=== PATIENT | female | born 1955 | race Caucasian/White ===

== ENCOUNTER 2017-02-06 11:36 | Emergency (ER) | payer MEDICAID ==
[~2017-02-06] VITALS: Ht 154.9 cm; Wt 54.4 kg
[~2017-02-06 11:36] MED LIST: ASPIRIN 81MG TA81 MG PO; FLEXERIL10 M1 PO; KEFLEX 500MG.500 MG PO; NAPROXEN SODIU500 MG PO; PREDNISONE 10MG10 MG PO
--- NOTE | 2017-02-06 12:39 | Urgent Treatment Center Report ---
History of Present Issue Date/Time Seen by Provider 02/06/17 1224 Visit Reason Pt arrived:Walked Presenting Problem:PT STATES PAIN TO BACK AT HER BRA LINE FROM LIFTING A BIG BLOCK OUT OF A MOWER DAY BEFORE YESTERDAY Location if Accident: Onset of symptoms date/time:/ or onset unknown for:MEDICAL HX UNKNOWN Have you (or family members/close friends) recently traveled outside the [place]? N If Yes, where/when: Have you had exposure to infectious disease within the past month? TB? Other? Specify: Her with sister c/o back pain. Pain mid to lower thoracic spine since yesterday. Not sure of exact cause. "I have to do so much by myself at home". Pull started a mower and lifted a heavy rock off a pole yesterday. No improvement w/ aspirin when pain started. Two tylenol and one 500mg naproxen last night. No medication this morning. Pain currently 7-8/10, constant dull ache, only on spine. Limiting spinal ROM. Improved when lying supine but severe when trying to get up. Denies UE weakness, no N/T. no difficulty urinating. No pain or symptoms BLE "other than my normal arthritis". Source patient Exam Limitations no limitations ALLERGIES Coded Allergies: CAULIFLOWER (FOOD) (NA-NAUSEA/VOMITING 09/04/14) Home Medications Active Scripts CYCLOBENZAPRINE HCL (Flexeril) 10 MG PO BID 7 Days Prov: 09/11/11 Prednisone (Prednisone 10MG) 10 MG PO BID 5 Days Prov: 09/11/11 Reported Medications NAPROXEN (NAPROXEN 500MG TAB) 500 MG PO BID ASPIRIN (Aspirin) 81 MG PO DAILY History Medical History General CAD? No Angina: No [place]: No Hypertension? No Hyperlipidemia? No CHF? No DVT? No PE? No COPD? No Asthma? No Anemia? No GERD? No Gastric ulcers? No GI Bleed? No Hernia? No Thyroid Problems? No Hypothyroidism? No CVA? No Seizures? No Diabetes? No Renal Insuffiency? No UTI? No Stones? No BPH? No GB Disease: No Nephritic Syndrome? No Asplenia? No Hepatitis? No Sickle Cell Disease? No Arthritis? No Migraines? No Cataracts? No Glaucoma? No MRSA? No HIV? No TB? No Anxiety? No Depression? No Cancer? No Immunization HX DT/Tetanus 2008 Surgical Hx Previous Surgery?Y HYST CYST ON WRIST R HIP FX Social History Smoking Hx Smoker: Current Every Day Smoker Tobacco: Yes Type Cigarettes Packs/day 1 1/2 - 2 Packs Alcohol Alcohol: No Review of Systems All Other Systems Reviewed and Negative Constitutional denies fever Respiratory shortness of breath (at baseline) Cardiovascular denies chest pain Gastrointestinal denies nausea, denies vomiting Musculoskeletal see HPI, denies neck pain Skin denies lesions, denies lumps, denies rash Psychiatric/Neurological see HPI Physical Exam Vital Signs Vital Signs Date Time Temp Pulse Resp B/P Pulse O2 O2 Flow FiO2 Ox Delivery Rate 02/06 1237 20 02/06 1153 98.3 75 20 123/59 94 General Appearance mild distress (appear uncomfortable on table), slow to change positions Neck non-tender, supple, full range of motion Respiratory Status No: respiratory distress. Cardiovascular no peripheral edema Back normal inspection, bowel/bladder continent, decreased range of motion ( spine), strt leg raising(L)-NML, strt leg raising(R)-NML, gait slow, moderate tendnerness approx T5-10, no thoracic or lumbar region tenderness Extremities non-tender, normal range of motion Strength 5 Upper Ext (L), 5 Upper Ext (R), 5 Lower Ext (L), 5 Lower Ext (R) Neurologic alert, no motor/sensory deficits, oriented x 3 Mental status normal mood/affect Skin normal color, warm/dry Medical Decision Making LABS/Meds/Orders Pt receiving controlled substance in ED? No Results/Orders Current Medication Orders Sig/Emre Start time Last Medication Dose Route Stop Time Status Admin Ketorolac 60 MG ONCE ONE 02/06 1245 DC 02/06 Tromethamine IM 02/06 1246 1237 Ketorolac 0 .STK-MED ONE 02/06 1235 DC Tromethamine .ROUTE Orders Procedure Date/time Status THORACIC SPINE-3V SWIMMERS 02/06 1232 Active XRAY/CT/US XRAY/CT/US XRAY T-spine XR interpretation by reviewed by me (w/ Dr. Anton, V[facility] STANFORD) Xray Results no acute findings, chronic spurring Progress [facility] Progress Notes 1 Date 02/06/17 Time 1230 Comment pt hesitant to take pain medication. States she is not one to like to take anything. rarely takes her naproxen twice a day as ordered. Educated about toradol, risk, benefits. Pt decides that due to the pain, she would like to receive the toradol injection. [facility] Progress Notes 2 Date 02/06/17 Time 1310 Comment Pain "somewhat" improved with toradol. Discussed xray results. Agrees to follow up with PCP, take naproxen BID with food and start steroids. Has taken steroids in the past for COPD and is familiar with side effects. Departure Departure Time of Disposition 1315 Disposition DC Home or Self Care(routine) Clinical Impression Primary Impression: Thoracic spine pain Secondary Impressions: Arthritis Condition STABLE Referrals Leodan STANFORD,A.C. (Family) Call today and schedule 1-2 day follow up. Return immediately for new or worsening symptoms. Patient Instructions DI for Thoracic Back Pain Additional Instructions * naproxen every 12 hours with meal as needed for pain/inflammation. * Start steorid today. Be sure to follow up with Dr. Alcocer in 1-2 days. * Remember you had a toradol shot in clinic * No additional anti-inflammatories like motrin, aleve, advil with the above amount of ibuprofen. You CAN still take Tylenol every 4 hours as needed if you need something more for pain. * Ice x15-20 mins 3-4 times a day for first 48 hours after the initial injury followed by moist heat x15-20 mins 3-4 times a day to affected area * Keep this area active. No movement leads to more stiffness. However, take it easy too and avoid heavy lifting, pushing, pulling. Discharge Counseling Counseled pt/family regarding diagnosis, test results, medications/RX, home care, follow up needs Prescriptions Current Visit Scripts Prednisone (Prednisone 20MG) 20 MG PO BID #10 TAB at 1317
[2017-02-06] MEDS ORDERED: PREDNISONE 20MG20 MG PO (13:17)
[2017-02-06 13:19] VITALS: BP 123/59
--- NOTE | 2017-02-06 17:14 | RADIOLOGY REPORT PS360 ---
EXAM: THORACIC SPINE-3V SWIMMERS HISTORY: acute lower thoracic pain, pull started mower, lifted rock COMPARISON: None FINDINGS: Normal alignment. There is mild multilevel degenerative disc disease with small endplate osteophytes. There is slight loss of height anteriorly of T7 and T8 likely degenerative in nature. If pain persists, MRI may be of further value. No definite acute fracture or retropulsed fragments apparent. No lytic or blastic change. IMPRESSION: 1. Degenerative changes of the thoracic spine with minimal wedging of T7 and T8 likely chronic. This may be confirmed with MRI if pain persists.
== END 2017-02-06 13:20 | disposition home or self-care (01) ==
LOC: UTC 11:36
DX: M54.6 Pain in thoracic spine (principal); M47.814 Spondylosis without myelopathy or radiculopathy, thoracic region

== ENCOUNTER 2017-02-19 12:26 | Emergency (ER) | payer MEDICAID ==
[~2017-02-19] VITALS: Ht 154.9 cm; Wt 55.8 kg
[~2017-02-19 12:26] MED LIST changes: +PREDNISONE 20MG20 MG PO
--- NOTE | 2017-02-19 13:20 | Emergency Room Report ---
History of Present Illness Time Seen by 1256 Presenting Problem in Triage Pt arrived:Walked Presenting Problem:PT ADVISES SHE FEELS NUMB AND TINGLING. ADVISES SHE HURT HER BACK A COUPLE OF DAYS AGO. NO DEFICITS NOTED AT THIS TIME. 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 N Clinical Suspician of Infection? N Mental Status: 1 - Regular (Normal Baseline) Sepsis Risk:Low Sepsis Risk Have you (or family members/close friends) recently traveled outside the [place]? N If Yes, where/when: Have you had exposure to infectious disease within the past month? N TB? Other? Specify: Patient states she "feels numb all over", including face, lips, BUE, BLE; no cephalgia; onset gradually yesterday; also feeling anxious. No chest pain. Is oxygen dependent, no acute SOB. Has some back spasm from pulling lawnmower cord, PCP Dr. Alcocer prescribed Flexeril and Ultram. The back pain is stable. ALLERGIES Coded Allergies: hydrocodone (Mild, 02/19/17) CAULIFLOWER (FOOD) (NA-NAUSEA/VOMITING 09/04/14) Home Medications Active Scripts CYCLOBENZAPRINE HCL (Flexeril) 10 MG PO BID 7 Days Prov: 09/11/11 Prednisone (Prednisone 10MG) 10 MG PO BID 5 Days Prov: 09/11/11 Prednisone (Prednisone 20MG) 20 MG PO BID #10 TAB Prov: 02/06/17 Reported Medications NAPROXEN (NAPROXEN 500MG TAB) 500 MG PO BID ASPIRIN (Aspirin) 81 MG PO DAILY History Medical History Immunization Hx DT/Tetanus 1-4 Years Ago Surgical Hx Previous Surgery?N Social History Smoking Hx Smoker: Former Smoker Tobacco: No Alcohol Alcohol: No Review of Systems All Other Systems Reviewed and Negative Psychiatric/Neurological see HPI, anxiety, paresthesia, tingling Physical Exam Vital Signs Vital Signs Date Time Temp Pulse Resp B/P Pulse O2 O2 Flow FiO2 Ox Delivery Rate 02/19 1234 98.2 79 16 163/100 95 General Appearance normal appearance, WD/WN, no apparent distress Eye Exam - bilateral eye normal exam, bilateral eye PERRL, bilateral eye EOMI Neck normal inspection, non-tender, supple, full range of motion Respiratory Status Yes: trachea midline, chest symmetrical, non tender chest. No: respiratory distress, tender on palpation, use of accessory muscles, pain on inspiration, pain on expiration, productive cough, non productive cough. Lung Sounds bilateral: normal breath sounds, lungs clear, decreased breath sounds. Cardiovascular normal exam, regular rate/rhythm, no peripheral edema, no gallop, no JVD, no murmur, no rub, normal peripheral pulses Peripheral Pulses Peripheral Pulses 2+ dorsalis pedis (R), 2+ dorsalis pedis (L) Gastrointestinal normal bowel sounds, normal exam, non tender, soft, no organomegaly, no guarding, no rebound Extremities non-tender, normal range of motion, normal inspection, normal capillary refill, no calf tenderness, no pedal edema Strength 5 Upper Ext (L), 5 Upper Ext (R), 5 Lower Ext (L), 5 Lower Ext (R) Neurologic alert, creative/art director II-XII nml as tested, normal exam, no motor/sensory deficits, oriented x 3 (gait steady NIHSS 0 clear spch) Glascow Coma Scale Glascow Coma Scale Response Value EYE response: 4 Spontaneously 4 MOTOR response: 6 OBEYS 6 VERBAL response: 5 Oriented & Converses 5 Total 15 Skin intact, normal color, warm/dry Medical Decision Making LABS/Meds/Orders Pt receiving controlled substance in ED? No Results/Orders Current Medication Orders Sig/Emre Start time Last Medication Dose Route Stop Time Status Admin Hydroxyzine Pamoate 25 MG ONCE ONE 02/19 1400 AC PO 02/19 1401 Orders Procedure Date/time Status DIET-NOTHING BY MOUTH 02/[address] HEAD REQ 02/19 1313 Active XRAY/CT/US XRAY/CT/US CT head CT interpretation by reviewed by me Time results known: 1350 CT Results normal/NAD (neg acute per report) Departure Departure Time of Disposition 1351 Disposition DC Home or Self Care(routine) Clinical Impression Primary Impression: Tingling sensation Condition STABLE Referrals Leodan STANFORD,A.C. (Family) Patient Instructions DI for Numbness/tingling Additional Instructions See Dr. Alcocer in one to two days for recheck blood pressure and recheck symptoms Discharge Counseling Counseled pt/family regarding diagnosis, test results, medications/RX, home care, follow up needs Prescriptions Current Visit Scripts Hydroxyzine Pamoate (Vistaril 25MG CAP) 25 MG PO Q6HP PRN anxiety #6 CAP ED Critical Care Critical Care No at [id number]
--- NOTE | 2017-02-19 13:42 | RADIOLOGY REPORT PS360 ---
CT HEAD WITHOUT CONTRAST CT BONE WINDOWS included ORDERING PHYSICIAN : Paty Malone MD PATIENT AGE: 61 years GENDER: Female PROCEDURE: Routine axial images headwithout contrast. Brain & bone windows HISTORY: NUMB ALL OVER SINCE LAST NIGHT COMPARISON: None FINDINGS: No acute intracranial findings. No hemorrhage. No acute infarct evident by CT No mass effect or mass lesion. No subdural nor extra-axial collection. Ventricles & basal cisterns appear satisfactory. . The posterior fossa appear satisfactory and unremarkable. The skull is intact. The visualized portions of the paranasal sinuses are clear. With only borderline mucosal thickening ethmoid air cells.Mastoid air cells, middle ear & IACs are unremarkable. IMPRESSION: No acute intracranial findings. .
[2017-02-19] MEDS ORDERED: VISTARIL25 M1 PO (13:54)
[2017-02-19 14:14] VITALS: BP 160/80
== END 2017-02-19 14:14 | disposition home or self-care (01) ==
LOC: ER 12:26
DX: R20.8 Other disturbances of skin sensation (principal); Z79.899 Other long term (current) drug therapy

== ENCOUNTER → 2017-03-07 | Outpatient (CLI) | payer MEDICAID ==
[~2017-03-07] MED LIST changes: +VISTARIL25 M1 PO
--- NOTE | 2017-03-07 11:01 | RADIOLOGY REPORT PS360 ---
MRI-T-SPINE W/O HISTORY: Thoracic back pain, mid back pain COMPRESSION FX OF BODY OF THORACIC VERTEBRA ORDERING PHYSICIAN: Terence Alcocer MD PATIENT AGE: 61 years COMPARISON: Radiograph of 02/06/2017 TECHNIQUE: Standard multiplanar multiecho sequences are performed without contrast. 3-D MIP and myelographic images are also rendered and reviewed FINDINGS: There has been interval development of severe wedge compressive changes involving the T8 vertebral body with loss of height centrally of greater than 50% loss of height anteriorly of approximately 50%. There is retropulsion of the posterior inferior aspect of the vertebral body by approximately 4 mm. No cord compression evident. No paraspinal hematoma or mass. There is kyphosis at the T8-T9 junction Mild bone marrow edema is present along the superior endplate of T9 and may be related to posttraumatic changes no significant loss of height of T9. Small hemangioma is present involving the 4 vertebral body. Small area of increased T2 signal involving the T2 vertebral body etiology indeterminate. Probable hemangioma in T1 vertebral body. IMPRESSION: 1. Severe wedge compression changes involve the T8 vertebral body with mild retropulsion of the posterior inferior aspect of T8. No cord compression. 2. Bone marrow edema involves the anterior superior aspect of T9 and may be related to posttraumatic changes as well versus type II endplate changes. No loss of height. 3. Scattered T2 hyperintense areas within T1, T2, and T4 vertebral body which may represent hemangiomas. Follow-up recommended to confirm stability.
--- NOTE | 2017-03-07 14:22 | RADIOLOGY REPORT PS360 ---
KUB (SINGLE VIEW) HISTORY: PAIN IN UPPER ABDOMEN ORDERING PHYSICIAN: Terence Alcocer MD PATIENT AGE: 61 years COMPARISON: None FINDINGS: The bowel gas pattern is unremarkable. No obvious obstruction.. No abnormal calcifications are evident. No obvious renal or ureteral calculi.. There is severe osteoarthritic changes of the right hip with dysplastic changes of the right femoral head IMPRESSION: No acute finding Severe osteoarthritis of the right hip
== END ==
LOC: RAD 07:51
DX: M54.6 Pain in thoracic spine (principal); M48.54XA Collapsed vertebra, not elsewhere classified, thoracic region, initial encounter for fracture; R10.10 Upper abdominal pain, unspecified

== ENCOUNTER → 2017-03-15 | Outpatient (CLI) | payer MEDICAID ==
[2017-03-15 15:32] LABS: HEMOGLOBIN 14.1 g/dL (12.2-16.2); LYMPH # 2.9 K/mm3 (0.7-4.5); LYMPH % 29.9 % (10-50.0)
[2017-03-15 18:27] LABS: BUN 5 mg/dL (7-18)
[2017-03-15 18:42] LABS: GFR (ESTIMATED) 73 ML/MIN (59-)
== END ==
LOC: LAB 15:15
PROVIDERS: Orthopaedic Surgery
DX: Z01.818 Encounter for other preprocedural examination (principal)

== ENCOUNTER 2017-04-02 15:26 | Emergency (ER) | payer MEDICAID ==
[~2017-04-02] VITALS: Ht 154.9 cm; Wt 67.1 kg
--- OUTSIDE RECORDS SUMMARY | 2017-04-02 15:53 | External Medical Summary Rpt | CCD ---
Author Author , DLIAN Organization DILAN Address Unknown Phone [email or web address] Care Team Providers Care Fire Alarm Technician Name Role Phone A Uche SHEIKH MD PSC, Saúl Unavailable Unavailable Uche SHEIKH MD PSC PEDRO LUIS LES, PEDRO LUIS Unavailable Unavailable LES GOLDSTEIN, GOLDSTEIN Unavailable Unavailable [facility], Unavailable Unavailable [facility], Unavailable Unavailable [facility] CASSIA, CASSIA Unavailable Unavailable [facility] SELMA, Unavailable Unavailable [facility] Unavailable Unavailable [facility], [facility] Un[facility] Unavailable [facility], [facility] LOPEZ, LOPEZ Unavailable Unavailable VELÁSQUEZ, VELÁSQUEZ Unavailable Unavailable [facility] KILPELA, KILPELA Unavailable Unavailable KILPELA JEA, KILPELA Unavailable Unavailable JEA [facility], [facility] Unavailable Unavailable [facility] Unavailable Unavailable [facility], [facility] Unavailable Unavailable [facility], [facility] Unavailable Unavailable [facility], [facility] Unavailable Unavailable [facility], [facility] ELTON GUZMÁN MD Unavailable Unavailable PS, ELTON GUZMÁN MD PS HOPKINS, HOPKINS Unavailable Unavailable [facility] JAM, Unavailable Unavailable [facility], Unavailable [facility]available [facility], [facility] GREG GUZMAN Unavailable Unavailable COLBY, GREG GUZMAN COLBY MINI HEN, MINI Unavailable Unavailable [facility], Unavailable Unavailable [facility] SCIFRES, SCIFRES Unavailable Unavailable SCIFRES, SCIFRES Unavailable Unavailable SILVER, SILVER Unavailable Unavailable SILVER, SILVER Unavailable Unavailable [facility] Unavailable Unavailable [facility], [facility] Unavailable Unavailable [facility], [facility], Unavailable Unavailable [facility] Un[facility] Un[facility] Unavailable Unavailable DEPT HAL, [facility] HAL WORTZ, WORTZ Unavailable Unavailable KORI, KORI Unavailable Unavailable KORI A, KORI A Unavailable Unavailable KORI DIMPLE, KORI Unavailable Unavailable DIMPLE Purpose Continuity of Care Document - 09-09-2013 through 2016 Problems Code Diagnosis DOS Provider Status R0602 SHORTNESS 03-07-2017 A Uche SHEIKH OF BREATH [facility] R1010 UPPER 03-07-2017 A Uche SHEIKH ABDOMINAL [facility] PAIN UNSPECIFIED R200 ANESTHESIA 02-19-2017 [facility] R202 PARESTHESIA 02-19-2017 [facility] SKIN PHYSICIANS, 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 UNS EQUIPME E782 MIXED 01-03-2017 A Uche SHEIKH HYPERLIPIDE [facility] SARAH G4700 INSOMNIA 01-03-2017 A Uche SHEIKH UNSPECIFIED [facility] N289 DISORDER OF 01-03-2017 A Uche SHEIKH KIDNEY AND PSC URETER UNSPECIFIED Z205 CONTACT W/ 01-03-2017 A Uche SHEIKH & SUSPECTED PSC EXPOSURE VIRAL HEPATITIS J439 EMPHYSEMA 11-21-2016 [facility] E039 HYPOTHYROID 10-05-2016 [facility] ISM [facility] UNSPECIFIED HOLDINGS Z1231 ENCOUNTER 10-05-2016 [facility] NEOPLASM BREAST Z6821 BODY MASS 10-05-2016 [facility] INDEX BMI [facility] 21.0-21.9 HOLDINGS ADULT Z833 FAMILY 10-05-2016 [facility] HISTORY OF [facility] DIABETES HOLDINGS MELLITUS L92314 ENCOUNTER 09-12-2016 [facility] 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 ASSISTANT MEMBER EXAM DISTRICT GENERAL RTN [facility] DEPT W/O HAL ABNORMAL FIND Z1239 ENCOUNTER 09-12-2016 [facility] OTHER DISTRICT SCREENING [facility] DEPT MALIG HAL NEOPLASM BREAST 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 H2511 AGE-RELATED 08-03-2016 [facility] NUCLEAR CATARACT RIGHT EYE Q73442 COMBINED 08-02-2016 [facility] FORMS OF AGE-RELATED CATARACT LEFT EYE H269 UNSPECIFIED 08-02-2016 [facility] H2701 APHAKIA 08-02-2016 [facility] RIGHT EYE Q66319 COMBINED 07-26-2016 ELTON CHANDRA MD AGE-RELATED PS CATARACT RIGHT EYE O69715 PAIN IN 07-05-2016 Saúl SHEIKH RIGHT LEG [facility] J77909 COMBINED 06-14-2016 SILVER FORMS OF AGE-RELATED CATARACT BILATERAL E538 DEFICIENCY 2016 [facility] OF OTHER [facility] SPECIFIED B HOLDINGS GROUP VITAMINS E559 VITAMIN D 2016 [facility] DEFICIENCY [facility] UNSPECIFIED HOLDINGS E785 HYPERLIPIDE 2016 [facility] SARAH [facility] UNSPECIFIED HOLDINGS R5383 OTHER 2016 [facility] FATIGUE [facility] HOLDINGS R911 SOLITARY 01-05-2016 [facility] R918 OTHER 01-05-2016 [facility] NONSPECIFIC [facility] ABNORMAL INC FINDING OF LUNG FIELD J9811 ATELECTASIS 12-30-2015 [facility] R079 CHEST PAIN 12-30-2015 [facility]PEC[facility] R9431 ABNORMAL 12-30-2015 [facility] MEDICAL ELECTROCARD SERV IOGRAM FOUNDATION R0789 OTHER CHEST 12-29-2015 [facility] R0989 OT SPEC SX 12-29-[address] [facility] INVLV THE CIRC & RESP SYS R198 OT SPEC SX 12-29-2015 [facility] SERV INVLV THE [facility]OUNDATION DIGESTV SYS & ABD E1165 TYPE 2 07-07-2015 [facility] DIABETES [facility] MELLITUS HOLDINGS WITH [place]PERGLYCEM [place] C18844 PAIN IN 03-30-2015 [facility] RIGHT KNEE [facility] HOLDINGS Z23 ENCOUNTER 03-30-2015 Saúl BOWMAN MD [facility] IMMUNIZATIO N 496 CHRONIC 03-03-2015 [facility] MEDICAL NEC EQUIPME 2449 UNSPECIFIED 01-05-2015 [facility] HYPOTHYROID HOLDINGS ISM 53755 DIAB W/O 01-05-2015 [facility] MENTION [facility] COMP TYPE HOLDINGS II/UNS TYPE UNCNTRL 2724 OTHER AND 01-05-2015 [facility] UNSPECIFIED [facility] HOLDINGS HYPERLIPIDE SARAH 4011 ESSENTIAL 01-05-2015 [facility] HYPERTENSIO [facility] N, BENIGN HOLDINGS 05321 PAIN IN 12-31-2014 [facility] PELVIC INC REGION AND THIGH 51337 PAIN IN 12-31-2014 [facility] LOWER LEG INC V700 ROUTINE 12-15-2014 [facility] MEDICAL [facility] DEPT [email or web address] CARE FACL 59485 OBSTRUCTIVE 11-25-2014 [facility] CHRONIC SERV BRONCHITIS [facility] WITHOUT EXACERBAT 4920 EMPHYSEMATO 11-25-2014 [facility] US BLEB SERV [facility] 44828 CHRONIC 11-25-2014 [facility] RESPIRATORY SERV FAILURE [facility] 61887 OTHER 11-25-2014 [facility] NONSPECIFIC SERV ABNORMAL FOUNDATION FINDING OF LUNG FIELD 64572 OSTEOARTHRO 11-18-2014 [facility] UNSPEC MEDICAL GEN/LOC IMAGING ASS PELV REGION&THIG H 68978 UNSPECIFIED 11-18-2014 [facility] MED[facility] BONE [facility] 4928 OTHER 10-09-2014 [facility]HY[facility]MA [facility] 7862 COUGH 10-09-2014 [facility] 76396 IRRITABILIT 09-25-2014 Saúl Mathews MD PSC V7610 UNSPECIFIED 09-22-2014 [facility] SCREENING INC V7612 OTHER 09-22-2014 [facility] MAMMO[facility] 78383 OTHER 09-15-2014 [facility] MALAISE AND [facility] FATIGUE HOLDINGS 7881 DYSURIA 09-15-2014 [facility] HOLDINGS 42221 UNSPECIFIED 09-15-2014 [facility] URINARY [facility] INCONTINENC HOLDINGS E V180 FAMILY 09-15-2014 [facility] HISTORY OF [facility] DIABETES HOLDINGS MELLITUS 93009 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 [facility] V5869 LONG-TERM 09-07-2014 [facility] (CURRENT[facility] USE OF INC OTHER MEDICATIONS V7651 SPECIAL 09-07-2014 [facility] SCREENING SERV FOR [facility]OUNDATION MALIGNANT NEOPLASMS COLON 4779 ALLERGIC 06-25-2014 [facility] RHINITIS [facility] CAUSE HOLDINGS UNSPECIFIED 10054 OSTEOARTHRO 06-25-2014 [facility] S UNSPEC [facility] WHETHER HOLDINGS GEN/LOC UNSPEC SITE 6989 UNSPECIFIED 03-26-2014 [facility] DISORDER V069 NEED PROPH 12-25-2013 [facility] VACCINATION DISTRICT W/UNSPEC [facility] DEPT COMB HAL VACCINE V770 SCREENING 12-22-2013 [facility] FOR THYROID CLINIC DISORDER V7791 SCREENING 12-22-2013 [facility] FOR LIPOID AMERIC DISORDERS HOLDINGS V811 SCREENING 12-22-2013 [facility] FOR AMERIC HYPERTENSIO HOLDINGS N 70799 INCONCLUSIV 09-15-2013 [facility] Allergies, Adverse Reactions, Alerts Clinical Alert Notifications Alert Asthma: ICS non-compliance with h/o of SA beta agonist Asthma: no influenza vaccine in the last 365 days Diabetes: no A1C in the last 6 months Diabetes: no eye exam in the last 365 days Diabetes: no influenza vaccine in the last 365 days Diabetes: no lipid panel in the last 365 days Diabetes: no urine protein screening in the last 365 days Medications Na ND Rx Da Fi Fi Am Da Di Ph RX Ph St me C No te ll ll ou ys ag ar # ys at rm s nt no ma ic us Or Da si cy ia de te s n re d NA 68 09 10 60 30 00 CL Ac WV 46 -1 -1 .0 00 IN ti OX 20 9- 3- 00 00 IC ve EN 19 20 20 44 00 17 17 32 PH 50 5 00 AR 0 MA MG CY TA BL ET GE 42 09 10 60 30 00 CL Ac MF 80 -1 -1 .0 00 IN ti IB 60 9- 3- 00 00 IC ve RO 26 20 20 44 ZI 00 17 17 01 PH L 5 12 AR 60 MA 0 CY MG TA BL ET IN 00 09 10 30 30 00 CL Ac CR 17 -1 -1 .0 00 IN ti US 30 9- 3- 00 00 IC ve E 87 20 20 43 EL 31 17 17 46 PH LI 0 67 AR PT MA A CY 62 .5 MC G IN H BR 00 09 10 60 30 00 CL Ac EO 17 -1 -1 .0 00 IN ti 30 9- 3- 00 00 IC ve EL 88 20 20 43 LI 21 17 17 38 PH PT 0 01 AR A MA 20 CY 0- 25 MC G IN H CY 00 09 10 30 10 00 CL Ac CL 59 -1 -0 .0 00 IN ti OB 15 3- 6- 00 00 IC ve EN 65 20 20 44 ZA 80 17 17 25 PH WV 5 07 AR IN MA E CY 10 MG TA BL ET HY 00 09 10 6. [address] 18 -1 -0 00 00 IN ti OX 50 1- 6- 0 00 IC ve YZ 67 20 20 44 IN 40 17 17 21 PH E 1 82 AR PA MA M CY 25 MG CA P CY 00 09 09 30 10 00 CL Ac CL 59 -0 -2 .0 00 IN ti OB 15 1- 9- 00 00 IC ve EN 65 20 20 44 ZA 80 17 17 13 PH WV 5 34 AR IN MA E CY 10 MG TA BL ET WV 00 09 09 10 5 00 CL Ac ED 05 -0 -2 .0 00 IN ti NI 40 1- 9- 00 00 IC ve SO 01 20 20 44 NE 82 17 17 13 PH 9 35 AR 20 MA CY MG TA BL ET WV 00 08 09 10 5 00 CL Ac ED 05 -2 -2 .0 00 IN ti NI 40 9- 2- 00 00 IC ve SO 01 20 20 44 NE 82 17 17 09 PH 9 45 AR 20 MA CY MG TA BL ET TE 00 08 09 30 30 00 CL Ac MA 22 -2 -2 .0 00 IN ti ZE 82 4- 2- 00 00 IC ve PA 07 20 20 44 M 71 17 17 04 PH 30 0 82 AR MA MG CY CA PS UL E IN 00 08 09 30 30 00 CL Ac CR 17 -2 -1 .0 00 IN ti US 30 1- 5- 00 IC ve E 87 20 20 43 EL 31 17 17 46 PH LI 0 67 AR PT MA A CY 62 .5 MC G IN H LE 00 08 09 90 90 00 CL Ac VO 37 -2 -1 .0 00 IN ti TH 81 1- 5- 00 IC ve YR 80 20 20 42 OX 31 17 17 99 PH IN 0 41 AR E MA 50 CY MC G TA BL ET GE 57 08 09 60 30 00 CL Ac MF 23 -2 -1 .0 00 IN ti IB 70 2- 5- 00 00 IC ve RO 16 20 20 44 ZI 30 17 17 01 PH L 5 12 AR 60 MA 0 CY MG TA BL ET NA 65 08 09 60 30 00 CL Ac WV 16 -2 -1 .0 00 IN ti OX 20 1- 5- 00 00 IC ve EN 19 20 20 42 05 17 17 01 PH 50 0 91 AR 0 MA MG CY TA BL ET BR 00 08 09 60 30 00 CL Ac EO 17 -2 -1 .0 00 IN ti 30 1- 5- 00 00 IC ve EL 88 20 20 43 LI 21 17 17 38 PH PT 0 01 AR A MA 20 CY 0- 25 MC G IN H TR 50 08 09 30 30 00 CL Ac AZ 11 -2 -1 .0 00 IN ti OD 10 1- 5- 00 00 IC ve ON 43 20 20 43 E 40 17 17 78 PH 10 1 60 AR 0 MA MG CY TA BL ET TR 50 07 08 30 30 00 CL Ac AZ 11 -2 -1 .0 00 IN ti OD 10 6- 8- 00 00 IC ve ON 43 20 20 43 E 40 17 17 78 PH 10 1 60 AR 0 MA MG CY TA BL ET CE 45 07 08 90 90 00 CL Ac TI 80 -2 -1 .0 00 IN ti RI 20 5- 8- 00 00 IC ve ZI 91 20 20 42 NE 98 17 17 99 PH 7 40 AR HC MA L CY 10 MG TA BL ET NA 65 07 08 60 30 00 CL Ac WV 16 -2 -1 .0 00 IN ti OX 20 5- 8- 00 00 IC ve EN 19 20 20 42 05 17 17 01 PH 50 0 91 AR 0 MA MG CY TA BL ET GE 57 07 08 60 30 00 CL Ac MF 23 -2 -1 .0 00 IN ti IB 70 5- 8- 00 00 IC ve RO 16 20 20 42 ZI 30 17 17 99 PH L 5 42 AR 60 MA 0 CY MG TA BL ET IN 00 07 08 30 30 00 CL Ac CR 17 -2 -1 .0 00 IN ti US 30 5- 8- 00 00 IC ve E 87 20 20 43 EL 31 17 17 46 PH LI 0 67 AR PT MA A CY 62 .5 MC G IN H BR 00 07 08 60 30 00 CL Ac EO 17 -2 -1 .0 00 IN ti 30 5- 8- 00 00 IC ve EL 88 20 20 43 LI 21 17 17 38 PH PT 0 01 AR A MA 20 CY 0- 25 MC G IN H SP 00 06 07 30 30 00 CL Ac IR 59 -3 -2 .0 00 IN ti IV 70 0- 8- 00 00 IC ve A 07 20 20 42 18 54 17 17 99 PH 1 38 AR MC MA G CY CP -H AN DI BERGER LE R GE 57 06 07 60 30 00 CL Ac MF 23 -3 -2 .0 00 IN ti IB 70 0- 8- 00 00 IC ve RO 16 20 20 42 ZI 30 17 17 99 PH L 5 42 AR 60 MA 0 CY MG TA BL ET NA 65 06 07 60 30 00 CL Ac WV 16 -3 -2 .0 00 IN ti OX 20 0- 8- 00 00 IC ve EN 19 20 20 42 05 17 17 01 PH 50 0 91 AR 0 MA MG CY TA BL ET BR 00 06 07 60 30 00 CL Ac EO 17 -1 -0 .0 00 IN ti 30 3- 7- 00 00 IC ve EL 88 20 20 43 LI 21 17 17 38 PH PT 0 01 AR A MA 20 CY 0- 25 MC G IN H ME 59 06 07 21 6 00 CL Ac TH 74 -1 -0 .0 00 IN ti YL 60 3- 7- 00 00 IC ve WV 00 20 20 43 ED 10 17 17 38 PH NI 3 02 AR SO MA LO CY NE 4 MG DO SE PK NA 65 06 06 60 30 00 CL Ac WV 16 -0 -3 .0 00 IN ti OX 20 1- 0- 00 00 IC ve EN 19 20 20 42 05 17 17 01 PH 50 0 91 AR 0 MA MG CY TA BL ET LE 00 06 06 90 90 00 CL Ac VO 37 -0 -3 .0 00 IN ti TH 81 1- 0- 00 00 IC ve YR 80 20 20 42 OX 31 17 17 99 PH IN 0 41 AR E MA 50 CY MC G TA BL ET GE 57 06 06 60 30 00 CL Ac MF 23 -0 -3 .0 00 IN ti IB 70 1- 0- 00 00 IC ve RO 16 20 20 42 ZI 30 17 17 99 PH L 5 42 AR 60 MA 0 CY MG TA BL ET VE 00 06 06 18 16 00 CL Ac NT 17 -0 -3 .0 00 IN ti OL 30 1- 0- 00 00 IC ve IN 68 20 20 42 22 17 17 99 PH HF 0 39 AR A MA 90 CY MC G IN BERGER LE R SP 00 06 06 30 30 00 CL Ac IR 59 -0 -3 .0 00 IN ti IV 70 1- 0- 00 00 IC ve A 07 20 20 42 18 54 17 17 99 PH 1 38 AR MC MA G CY CP -H AN DI BERGER LE R SP 00 05 05 30 30 00 CL Ac IR 59 -0 -2 .0 00 IN ti IV 70 2- 6- 00 00 IC ve A 07 20 20 42 18 54 17 17 99 PH 1 38 AR MC MA G CY CP -H AN DI BERGER LE R VE 00 05 05 18 16 00 CL Ac NT 17 -0 -2 .0 00 IN ti OL 30 2- 6- 00 00 IC ve IN 68 20 20 42 22 17 17 99 PH HF 0 39 AR A MA 90 CY MC G IN BERGER LE R CE 45 05 05 90 90 00 CL Ac TI 80 -0 -2 .0 00 IN ti RI 20 2- 6- 00 00 IC ve ZI 91 20 20 42 NE 98 17 17 99 PH 7 40 AR HC MA L CY 10 MG TA BL ET GE 57 05 05 60 30 00 CL Ac MF 23 -0 -2 .0 00 IN ti IB 70 2- 6- 00 00 IC ve RO 16 20 20 42 ZI 30 17 17 99 PH L 5 42 AR 60 MA 0 CY MG TA BL ET SP 00 04 04 30 30 00 CL Ac IR 59 -0 -2 .0 00 IN ti IV 70 4- 8- 00 00 IC ve A 07 20 20 42 18 54 17 17 72 PH 1 11 AR MC MA G CY CP -H AN DI BERGER LE R GE 57 03 04 60 30 00 CL Ac MF 23 -2 -2 .0 00 IN ti IB 70 8- 1- 00 00 IC ve RO 16 20 20 41 ZI 30 17 17 46 PH L 5 90 AR 60 MA 0 CY MG TA BL ET NA 65 03 04 60 30 00 CL Ac WV 16 -2 -2 .0 00 IN ti OX 20 8- 1- 00 00 IC ve EN 19 20 20 42 05 17 17 01 PH 50 0 91 AR 0 MA MG CY TA BL ET ER 17 03 04 3. 30 00 CL Ac YT 47 -0 -0 50 00 IN ti HR 80 9- 7- 0 00 IC ve OM 07 20 20 41 YC 03 17 17 82 PH IN 5 01 AR MA 0. CY 5% EY E OI NT ME NT NA 65 02 03 60 30 00 CL Ac WV 16 -2 -2 .0 00 IN ti OX 20 7- 4- 00 00 IC ve EN 19 20 20 42 05 17 17 01 PH 50 0 91 AR 0 MA MG CY TA BL ET SP 00 02 03 30 30 00 CL Ac IR 59 -2 -2 .0 00 IN ti IV 70 7- 4- 00 00 IC ve A 07 20 20 42 18 54 17 17 36 PH 1 68 AR MC MA G CY CP -H AN DI BERGER LE R SY 00 02 03 10 30 00 CL Ac MB 18 -2 -2 .1 00 IN ti IC 60 7- 4- 99 00 IC ve OR 37 20 20 41 T 02 17 17 46 PH 16 0 55 AR 0- MA 4. CY 5 MC G IN BERGER LE R GE 57 02 03 60 30 00 CL Ac MF 23 -2 -2 .0 00 IN ti IB 70 7- 4- 00 00 IC ve RO 16 20 20 41 ZI 30 17 17 46 PH L 5 90 AR 60 MA 0 CY MG TA BL ET LE 00 02 03 90 90 00 CL Ac VO 37 -2 -1 .0 00 IN ti TH 81 0- 7- 00 00 IC ve YR 80 20 20 41 OX 31 17 17 63 PH IN 0 00 AR E MA 50 CY MC G TA BL ET GE 57 01 02 60 30 00 CL Ac MF 23 -2 -2 .0 00 IN ti IB 70 6- 4- 00 00 IC ve RO 16 20 20 41 ZI 30 17 17 46 PH L 5 90 AR 60 MA 0 CY MG TA BL ET SY 00 01 02 10 30 00 CL Ac MB 18 -2 -2 .1 00 IN ti IC 60 6- 4- 99 00 IC ve OR 37 20 20 41 T 02 17 17 46 PH 16 0 55 AR 0- MA 4. CY 5 MC G IN BERGER LE R SP 00 01 02 30 30 00 CL Ac IR 59 -2 -2 .0 00 IN ti IV 70 6- 4- 00 00 IC ve A 07 20 20 39 18 54 17 17 17 PH 1 52 AR MC MA G CY CP -H AN DI BERGER LE R NA 68 01 02 60 30 00 CL Ac WV 46 -2 -1 .0 00 IN ti OX 20 5- 7- 00 00 IC ve EN 19 20 20 42 00 17 17 01 PH 50 5 91 AR 0 MA MG CY TA BL ET CE 45 01 02 90 90 00 CL Ac TI 80 -1 -1 .0 00 IN ti RI 20 8- 0- 00 00 IC ve ZI 91 20 20 41 NE 98 17 17 95 PH 7 23 AR HC MA L CY 10 MG TA BL ET TO 17 01 02 5. 14 00 CL Ac BR 47 -0 -0 00 00 IN ti AM 80 4- 3- 0 00 IC ve YC 29 20 20 41 IN 01 17 17 82 PH 0 03 AR 0. MA 3% CY EY E DR OP S ER 17 01 01 3. 30 00 CL Ac YT 47 -0 -2 50 00 IN ti HR 80 4- 7- 0 00 IC ve OM 07 20 20 41 YC 03 17 17 82 PH IN 5 01 AR MA 0. CY 5% EY E OI NT ME NT CY 24 01 01 2. 30 00 CL Ac CL 20 -0 -2 00 00 IN ti OP 80 4- 7- 0 00 IC ve EN 73 20 20 41 TO 50 17 17 82 PH LA 1 02 AR TE MA CY 1% EY E DR OP S WV 60 01 01 10 30 00 CL Ac ED 75 -0 -2 .0 00 IN ti NI 80 4- 7- 00 00 IC ve SO 11 20 20 41 LO 90 17 17 82 PH NE 5 04 AR MA AC CY 1% EY E DR OP GE 57 12 01 60 30 00 CL Ac MF 23 -2 -2 .0 00 IN ti IB 70 2- 0- 00 00 IC ve RO 16 20 20 41 ZI 30 16 17 46 PH L 5 90 AR 60 MA 0 CY MG TA BL ET SP 00 12 01 30 30 00 CL Ac IR 59 -2 -1 .0 00 IN ti IV 70 1- 3- 00 00 IC ve A 07 20 20 39 18 54 16 17 17 PH 1 52 AR MC MA G CY CP -H AN DI BERGER LE R SY 00 12 01 10 30 00 CL Ac MB 18 -2 -1 .1 00 IN ti IC 60 1- 3- 99 00 IC ve OR 37 20 20 41 T 02 16 17 46 PH 16 0 55 AR 0- MA 4. CY 5 MC G IN BERGER LE R LE 00 12 01 90 90 00 CL Ac VO 37 -1 -0 .0 00 IN ti TH 81 4- 9- 00 00 IC ve YR 80 20 20 41 OX 31 16 17 63 PH IN 0 00 AR E MA 50 CY MC G TA BL ET Immunization Name Date Rout CVX Reac Dose Comm Prov Is Faci e tion ent ider Refu lity Give sed n IIV3 - 140 WRIG No A C 0-20 HT WRIG VACC 15 DIMPLE HT MD PRES PSC ERVA TIVE FREE 0.5 ML DOSA GE IM USE PCV1 03-12 133 WRIG No A C 3 0-20 HT WRIG VACC 15 DIMPLE HT INE FOR PSC INTR AMUS CULA R USE TD 12-09 113 [facility] VACC 7-20 O O INE 14 DIST DIST PRSR RICT RICT V [facility] 7 YRS DEPT DEPT OR HAL HAL OLDE R FOR IM USE TD 12-09 91 [facility] No [facility] VACC 7-20 O O INE 14 DIST DIST PRSR RICT RICT V FREE [facility] 7 YRS DEPT DEPT OR HAL HAL OLDE R FOR IM USE Results Labs Lab Lab Date Result Refere Interp Status Commen Order Detail nces retati t Range on Basic metabolic panel (03-15-2017 15:16) Serum = 146 136-145 complet sodium 017 mmoL/L ed measure 15:16 ment Serum = 3.3 3.5-5.1 complet potassi 017 mmoL/L ed um 15:16 measure ment Serum = 95 74-106 complet or 017 mg/dL ed plasma 15:16 glucose measure ment (mas Estimat = 73 59- complet ed 017 ML/MIN ed glomeru 15:16 lar filtrat ion rate (GF Comment: REFERENCE RANGE: >60 ML/MIN/1.73 SQUARE METERS Comment: If this patient is -Citizen Of [place], then multiply the Comment: result by 1.210. Serum = 0.8 0.55-1. complet or 017 mg/dL 02 ed plasma 15:16 creatin ine measure ment ( Carbon = 31 21.0-32 complet dioxide 017 mmoL/L .0 ed 15:16 measure ment Serum = 103 98-107 complet or 017 mmoL/L ed plasma 15:16 chlorid e measure ment (mo Serum = 9.7 8.5-10. complet or 017 mg/dL 1 ed plasma 15:16 calcium measure ment (mas Serum = 5 7-18 complet or 017 mg/dL ed plasma 15:16 urea nitroge n measure men CBC w auto diff (03-15-2017 15:16) Blood = 9.7 4.8-10. complet leukocy 017 K/MM3 8 ed ronald 15:16 count (number /volume ) Automat = 12.8 11.5-17 complet ed 017 % .5 ed erythro 15:16 cyte distrib ution width Red = 4.58 4.2-5.4 complet blood 017 M/mm3 ed cell 15:16 count Blood = 448 142-424 complet platele 017 K/mm3 ed t count 15:16 Automat = 8.2 7.4-10. complet ed 017 fl 4 ed blood 15:16 platele t mean volume tremaine [place] % = 6.8 % 1.7-9.3 complet 017 ed 15:16 Absolut = 0.7 0.1-1.0 complet e 017 K/mm3 ed monocyt 15:16 e count Automat = 96.8 82.2-97 complet ed 017 fl .8 ed erythro 15:16 cyte mean corpusc ular v Automat = 31.8 31.8-35 complet ed 017 g/dl .4 ed erythro 15:16 cyte mean corpusc ular h Mean = 30.7 27-31.2 complet corpusc 017 pg ed ular 15:16 hemoglo bin (MCH) determ Lymphoc = 29.9 10-50.0 complet yte 017 % ed count, 15:16 blood, automat ed Absolut = 2.9 0.7-4.5 complet e 017 K/mm3 ed lymphoc 15:16 yte count Blood = 14.1 12.2-16 complet hemoglo 017 g/dL .2 ed bin 15:16 measure ment (mass/v olum Blood = 44.3 37.0-47 complet hematoc 017 % .0 ed rit 15:16 (volume fractio n) Granulo = 61.1 37.0-80 complet cyte 017 % .0 ed percent 15:16 age Blood = 6.0 1.8-7.8 complet granulo 017 K/mm3 ed cytes 15:16 automat ed count (numb Automat = 1.5 % 0.1-12. complet ed 017 0 ed blood 15:16 eosinop hils/10 0 leukocy t Automat = 0.2 0.0-0.4 complet ed 017 K/mm3 ed blood 15:16 eosinop hil count Baso % = 0.6 % 0.1-2.0 complet 017 ed 15:16 Automat = 0.1 0-0.2 complet ed 017 K/MM3 ed blood 15:16 basophi l count (count/ vo Procedures Procedure DOS Code Location Performer Comment COLLECTIO 65262 A C SHEIKH N VENOUS 7 [facility] [place] BLOOD PSC VENIPUNCT URE BLOOD 13187 A C SHEIKH COUNT 7 [facility] [place] COMPLETE PSC AUTO&[place] [address] [place] [facility]/BRAI 7 MEDICAL N W/O IMAGING CONTRAST ASS MATERIAL RADEX 83911 [place] [facility] 7 MEDICAL THORACIC IMAGING 3 VIEWS ASS THERAPEUT 39903 [facility] IC 7 [facility] PROPHYLAC INC INC TIC/DX INJECTION SUBQ/IM UNCLASSIF J3490 [facility] IED DRUGS 7 [facility] INC INC O2 CONC 1 E1390 [facility] PORT 7 HOME HOME 85%/>02 MEDICAL MEDICAL CONC AT EQUIPME EQUIPME PRSC FLW RATE PRTBLE E0431 [facility] TORRES GASEOUS 7 HOME HOME O2 SYS MEDICAL MEDICAL RENT; EQUIPME EQUIPME FLWMTR HUMIDFR&M ASK TRANSFERA 30793 A C SHEIKH SE 7 KORI [place] ASPARTATE PSC AMINO AST SGOT TRANSFERA 22816 A C A C SE 7 KORI SHEIKH MD ALANINE PSC PSC AMINO ALT SGPT GLUCOSE 93232 A C KORI QUANTITAT 7 KORI [place] AQUILES BLOOD PSC XCPT REAGENT STRIP COLLECTIO 64253 A C A C N VENOUS 7 KORI SHEIKH MD BLOOD PSC PSC VENIPUNCT URE O2 CONC 1 E1390 BRIAN BRIAN DYER [place] 7 HOME HOME 85%/>02 MEDICAL MEDICAL CONC AT EQUIPME EQUIPME PRSC FLW RATE PRTBLE E0431 BRIAN TORRES GASEOUS 7 HOME HOME O2 SYS MEDICAL MEDICAL RENT; EQUIPME EQUIPME FLWMTR HUMIDFR&M ASK PRTBLE E0431 BRIAN TORRES GASEOUS 7 HOME HOME O2 SYS MEDICAL MEDICAL RENT; EQUIPME EQUIPME FLWMTR HUMIDFR&M ASK O2 CONC 1 E1390 BRIAN TORRES [place] 7 HOME HOME 85%/>02 MEDICAL MEDICAL CONC AT EQUIPME EQUIPME PRSC FLW RATE O2 CONC 1 E1390 BRIAN TORRES [place] 7 HOME HOME 85%/>02 MEDICAL MEDICAL CONC AT EQUIPME EQUIPME PRSC FLW RATE PRTBLE E0431 BRIAN TORRES GASEOUS 7 HOME HOME O2 SYS MEDICAL MEDICAL RENT; EQUIPME EQUIPME FLWMTR HUMIDFR&M ASK SCREENING G0202 ANNETTE ANTONY 7 MEDICAL MAMMOGRAP IMAGING HY CAROL ASS INCL CAD WHEN PERFORMD SCREENING 71554 [facility] [place] 7 [facility] MAMMOGRAP INC INC HY BI 2-VIEW BREAST INC CAD BASIC 03009 LAB AGUSTÍN LAB AGUSTÍN METABOLIC 7 URSULA URSULA [employer] [place] [address] LAB AGUSTÍN LAB AGUSTÍN THYROID 7 URSULA URSULA STIMULATI HOLDINGS HOLDINGS NG HORMONE TSH O2 CONC 1 E1390 BRIAN D[place] 7 HOME HOME 85%/>02 MEDICAL MEDICAL CONC AT EQUIPME EQUIPME PRSC FLW RATE PRTBLE E0431 BRIAN TORRES GASEOUS 7 HOME HOME O2 SYS MEDICAL MEDICAL RENT; EQUIPME EQUIPME FLWMTR HUMIDFR&M ASK PRTBLE E0431 BRIAN TORRES GASEOUS 7 HOME HOME O2 SYS MEDICAL MEDICAL RENT; EQUIPME EQUIPME FLWMTR HUMIDFR&M ASK O2 CONC 1 E1390 BRIAN [place] 7 HOME HOME 85%/>02 MEDICAL MEDICAL CONC AT EQUIPME EQUIPME PRSC FLW RATE O2 CONC 1 E1390 BRIAN [place] 7 HOME HOME 85%/>02 MEDICAL MEDICAL CONC AT EQUIPME EQUIPME PRSC FLW RATE PRTBLE E0431 BRIAN TORRES GASEOUS 7 HOME HOME O2 SYS MEDICAL MEDICAL RENT; EQUIPME EQUIPME FLWMTR HUMIDFR&M ASK OPH BMTRY 77701 ADRIANNE SILVER PRTL 7 COHER INTRFRMTR Y IO LENS PWR KELLY ANESTHESI 79394 [place] E[place] 7 ANESTHESI LENS A SURGERY ASSOCIAT CATARACT 02478 ELTON S WORTZ REMOVAL 7 GUZMÁN INSERTION PS OF LENS CATARACT 64540 ELTON S WORTZ REMOVAL 7 GUZMÁN INSERTION MD PS OF LENS ANESTHESI 88105 [place] A EYE 7 ANESTHESI LENS A SURGERY ASSOCIAT BASIC 03860 LAB AGUSTÍN LAB AGUSTÍN METABOLIC 7 URSULA URSULA PANEL HOLDINGS HOLDINGS CALCIUM TOTAL BLOOD 72373 LAB AGUSTÍN LAB AGUSTÍN COUNT 7 URSULA URSULA COMPLETE HOLDINGS HOLDINGS AUTO&AUTO DIFRNTL WBC TRANSFERA 81706 A C A C SE 7 KORI SHEIKH MD ALANINE PSC PSC AMINO ALT SGPT TRANSFERA 44855 A C KORI SE 7 KORI STANFORD ASPARTATE PSC AMINO AST SGOT GLUCOSE 44988 A C OKRI QUANTITAT 7 KORI STANFORD AQUILES BLOOD PSC XCPT REAGENT STRIP O2 CONC 1 E1390 BRIAN TORRES DEL PORT 7 HOME HOME 85%/>02 MEDICAL MEDICAL CONC AT EQUIPME EQUIPME PRSC FLW RATE PRTBLE E0431 BRIAN TORRES GASEOUS 7 HOME HOME O2 SYS MEDICAL MEDICAL RENT; EQUIPME EQUIPME FLWMTR HUMIDFR&M ASK OPH BMTRY 18368 ADRIANNE SILVER PRTL 7 COHER INTRFRMTR Y IO LENS PWR KELLY O2 CONC 1 E1390 BRIAN TORRES DEL PORT 6 HOME HOME 85%/>02 MEDICAL MEDICAL CONC AT EQUIPME EQUIPME PRSC FLW RATE PRTBLE E0431 BRIAN BRIAN GASEOUS 6 HOME HOME O2 SYS MEDICAL MEDICAL RENT; EQUIPME EQUIPME FLWMTR HUMIDFR&M ASK PRTBLE E0431 BRIAN BRIAN GASEOUS 6 HOME HOME O2 SYS MEDICAL MEDICAL RENT; EQUIPME EQUIPME FLWMTR HUMIDFR&M ASK O2 CONC 1 E1390 BRIAN TORRES DEL PORT 6 HOME HOME 85%/>02 MEDICAL MEDICAL CONC AT EQUIPME EQUIPME PRSC FLW RATE BASIC 08123 LAB AGUSTÍN LAB AGUSTÍN METABOLIC 6 URSULA URSULA PANEL HOLDINGS HOLDINGS CALCIUM TOTAL BLOOD 65903 A C A C COUNT 6 KORI SHEIKH MD COMPLETE PSC PSC AUTO&AUTO DIFRNTL WBC 25 53442 LAB AGUSTÍN LAB AGUSTÍN HYDROXY 6 URSULA URSULA INCLUDES HOLDINGS HOLDINGS FRACTIONS IF PERFORMED CYANOCOBA 10431 LAB AGUSTÍN LAB AGUSTÍN JOSE ELIAS 6 URSULA URSULA VITAMIN HOLDINGS HOLDINGS B-12 [place] [address] LAB AGUSTÍN LAB AGUSTÍN THYROID 6 URSULA URSULA STIMULATI HOLDINGS HOLDINGS NG HORMONE TSH GLUCOSE 92716 A C KORI QUANTITAT 6 KORI MUSA AQUILES BLOOD PSC XCPT REAGENT STRIP TRANSFERA 28455 A C KORI SE 6 KORI STANFORD DIMPLE ASPARTATE PSC AMINO AST SGOT TRANSFERA 46702 A C KORI SE 6 KORI STAN[place]ORD DIMPLE ALANINE PSC AMINO ALT SGPT HEMOGLOBI 80268 A C A C N 6 KORI SHEIKH MD GLYCOSYLA PSC PSC LIN A1C O2 CONC 1 E1390 BRIAN BRIAN DEL PORT 6 HOME HOME 85%/>02 MEDICAL MEDICAL CONC AT EQUIPME EQUIPME PRSC FLW RATE PRTBLE E0431 BRIAN BRIAN GASEOUS 6 HOME HOME O2 SYS MEDICAL MEDICAL RENT; EQUIPME EQUIPME FLWMTR HUMIDFR&M ASK PRTBLE E0431 BRIAN BRIAN GASEOUS 6 HOME HOME O2 SYS MEDICAL MEDICAL RENT; EQUIPME EQUIPME FLWMTR HUMIDFR&M ASK O2 CONC 1 E1390 BRIAN BRIAN DEL PORT 6 HOME HOME 85%/>02 MEDICAL MEDICAL CONC AT EQUIPME EQUIPME PRSC FLW RATE O2 CONC 1 E1390 BRIAN BRIAN DEL PORT 6 HOME HOME 85%/>02 MEDICAL MEDICAL CONC AT EQUIPME EQUIPME PRSC FLW RATE PRTBLE E0431 BRIAN BRIAN GASEOUS 6 HOME HOME O2 SYS MEDICAL MEDICAL RENT; EQUIPME EQUIPME FLWMTR HUMIDFR&[place] [address] LAB AGUSTÍN LAB AGUSTÍN THYROID 6 URSULA URSULA STIMULATI HOLDINGS HOLDINGS NG HORMONE TSH CT THORAX 82260 ISAMAR ISAMAR W/O 6 [facility] CONTRAST INC INC MATERIAL BASIC 37680 LAB AGUSTÍN LAB AGUSTÍN METABOLIC 6 URSULA URSULA PANEL HOLDINGS HOLDINGS CALCIUM TOTAL ECG 79414 UNIVERSIT UNIVERSIT ROUTINE 6 Y Y ECG [facility] W/LEAST 12 LDS TRCG ONLY W/O I&[place] [address] [facility] TROPONIN 6 Y Y QUANTITAT [facility] AQUILES ECG 89015 [place] RADHA CHI ROUTINE 6 MEDICAL ECG SERV W/LEAST FOUNDATIO 12 LDS N I&R ONLY RADIOLOGI 46322 MALIK GARZA C EXAM 6 MEDICAL THOMAS CHEST 2 SERV COLBY VIEWS FOUNDATIO FRONTAL&L N ATERAL O2 CONC 1 E1390 BRIAN TORRES DEL PORT 6 HOME HOME 85%/>02 MEDICAL MEDICAL CONC AT EQUIPME EQUIPME PRS FLW RATE PRTBLE E0431 BRIAN GARIBAYRELL GASEOUS 6 HOME HOME O2 SYS MEDICAL MEDICAL RENT; EQUIPME EQUIPME FLWMTR HUMIDFR&M ASK PRTBLE E0431 BRIAN GARIBAYRELL GASEOUS 6 HOME HOME O2 SYS MEDICAL MEDICAL RENT; EQUIPME EQUIPME FLWMTR HUMIDFR&M ASK O2 CONC 1 E1390 BRIAN TORRES DEL PORT 6 HOME HOME 85%/>02 MEDICAL MEDICAL CONC AT EQUIPME EQUIPME [facility] FLW RATE BASIC 99663 [facility] METABOLIC 6 DIAGNOSTI DIAGNOSTI PANEL CS CS CALCIUM TOTAL LIPOPROTE 24331 A C KILPELA IN DIR 6 KORI STANFORD JESaúl MARTIN [place] [address] [facility] THYROID 6 DIAGNOSTI DIAGNOSTI STIMULATI CS CS NG HORMONE TSH GLUCOSE 44656 A C KILPELA QUANTITAT 6 KORI MAYORGA AQUILES BLOOD [place] [address] A C KILPELA TRIGLYCER 6 KORI STANFORD JEA IDES PSC TRANSFERA 33143 A C KILPELA SE 6 KORI STANFORD JESaúl ALANINE PSC AMINO ALT SGPT TRANSFERA 68846 A C KILPELA SE 6 KORI STANFORD JESaúl ASPARTATE PSC AMINO AST SGOT CHOLESTER 68226 A C KILPELA OL 6 KORI MAYORGA SERUM/WHO PSC LE BLOOD TOTAL SCREENING G0202 ISAMAR PENN 6 [facility] MAMMOGRAP INC INC HY CAROL INCL CAD WHEN PERFORMD COMPUTER- 46667 ISAMAR PENN AIDED 6 [facility] DETECTION INC INC SCREENING MAMMOGRAP HY O2 CONC 1 E1390 BRIAN DYER PORT 6 HOME HOME 85%/>02 MEDICAL MEDICAL CONC AT EQUIPME EQUIPME [facility] FLW RATE PRTBLE E0431 BRIAN TORRES GASEOUS 6 HOME HOME O2 SYS MEDICAL MEDICAL RENT; EQUIPME EQUIPME FLWMTR HUMIDFR&M ASK PRTBLE E0431 BRIAN TORRES GASEOUS 6 HOME HOME O2 SYS MEDICAL MEDICAL RENT; EQUIPME EQUIPME FLWMTR HUMIDFR&M ASK O2 CONC 1 E1390 BRIAN DYER PORT 6 HOME HOME 85%/>02 MEDICAL MEDICAL CONC AT EQUIPME EQUIPME PRSC FLW RATE O2 CONC 1 E1390 BRIAN DYER PORT 6 HOME HOME 85%/>02 MEDICAL MEDICAL CONC AT EQUIPME EQUIPME PRSC FLW RATE PRTBLE E0431 BRIAN TORRES GASEOUS 6 HOME HOME O2 SYS MEDICAL MEDICAL RENT; EQUIPME EQUIPME FLWMTR HUMIDFR&M ASK BASIC 66075 LAB AGUSTÍN LAB AGUSTÍN METABOLIC 6 URSULA URSULA PANEL HOLDINGS HOLDINGS CALCIUM TOTAL LIPOPROTE 41708 A Uche SHEIKH IN DIR 6 KORI MUSA MARTIN HIGH PSC DENSITY CHOLESTER OL CYANOCOBA 33616 LAB AGUSTÍN LAB AGUSTÍN JOSE ELIAS 6 URSULA URSULA VITAMIN HOLDINGS HOLDINGS B-12 CHOLESTER 80741 A Uche SHEIKH OL 6 KORI MUSA SERUM/WHO PSC LE BLOOD TOTAL GLUCOSE 60550 A Uche SHEIKH QUANTITAT 6 KORI MUSA AQUILES BLOOD PSC XCPT REAGENT STRIP TRANSFERA 63074 A Uche SHEIKH SE 6 KORI MUSA [place] [address] A Uche SHEIKH TRIGLYCER 6 KORI MUSA IDES PSC HEMOGLOBI 07404 A Uche SHEIKH N 6 KORI MUSA GLYCOSYLA PSC LIN A1C TRANSFERA 53899 A Uche SHEIKH SE 6 KORI MUSA [place] [address] LAB AGUSTÍN LAB AGUSTÍN THYROID 6 URSULA URSULA STIMULATI HOLDINGS HOLDINGS NG HORMONE TSH O2 CONC 1 E1390 BRIAN DYER PORT 6 HOME HOME 85%/>02 MEDICAL MEDICAL CONC AT EQUIPME EQUIPME PRSC FLW RATE PRTBLE E0431 BRIAN TORRES GASEOUS 6 HOME HOME O2 SYS MEDICAL MEDICAL RENT; EQUIPME EQUIPME FLWMTR HUMIDFR&M ASK PRTBLE E0431 BRIAN TORRES GASEOUS 5 HOME HOME O2 SYS MEDICAL MEDICAL RENT; EQUIPME EQUIPME FLWMTR HUMIDFR&M ASK O2 CONC 1 E1390 BRIAN TORRES DEL PORT 5 HOME HOME 85%/>02 MEDICAL MEDICAL CONC AT EQUIPME EQUIPME PRSC FLW RATE O2 CONC 1 E1390 BRIAN TORRES DEL PORT 5 HOME HOME 85%/>02 MEDICAL MEDICAL CONC AT EQUIPME EQUIPME PRSC FLW RATE PRTBLE E0431 BRIAN TORRES GASEOUS 5 HOME HOME O2 SYS MEDICAL MEDICAL RENT; EQUIPME EQUIPME FLWMTR HUMIDFR&M ASK CT THORAX 49962 ISAMAR PENN W/O 5 [facility] CONTRAST INC INC MATERIAL O2 CONC 1 E1390 BRIAN TORRES DEL PORT 5 HOME HOME 85%/>02 MEDICAL MEDICAL CONC AT EQUIPME EQUIPME PRSC FLW RATE PRTBLE E0431 BRIAN TORRES GASEOUS 5 HOME HOME O2 SYS MEDICAL MEDICAL RENT; EQUIPME EQUIPME FLWMTR HUMIDFR&M ASK IM ADM 37810 A Uche SHEIKH PRQ ID 5 KORI STANFORD DIMPLE SUBQ/[place] [address] LAB AGUSTÍN LAB AGUSTÍN THYROID 5 [facility] STIMULATI HOLDINGS HOLDINGS NG HORMONE TSH TRANSFERA 50232 A Uche SHEIKH SE 5 KORI MUSA ALANINE PSC AMINO ALT SGPT HEMOGLOBI 07701 A Uche SHEIKH N 5 KORI NGUYEND GLYCOSY[place] A1[place] [address] A Uche SHEIKH TRIGLYCER 5 KORI MUSA IDES PSC IIV3 VACC 82786 Saúl SHEIKH 5 KORI MUSA PRESERVAT PSC AQUILES FREE 0.5 ML DOSAGE IM USE TRANSFERA 24055 A Uche SHEIKH SE 5 KORI MUSA ASPARTATE PSC AMINO AST SGOT GLUCOSE 47927 Saúl SHEIKH QUANTITAT 5 KORI MUSA AQUILES BLOOD PSC XCPT REAGENT STRIP CHOLESTER 21709 A Uche SHEIKH OL 5 KORI MUSA SERUM/WHO PSC LE BLOOD TOTAL LIPOPROTE 81544 Saúl SHEIKH IN DIR 5 KORI MUSA MARTIN HIGH PSC DENSITY CHOLESTER OL MOST 3044F A Uche SHEIKH RECENT 5 KORI MUSA HEMOGLOBI PSC N A1C LEVEL < 7.0% IM ADM 18440 Saúl SHEIKH PRQ ID 5 KORI MUSA SUBQ/IM PSC NJXS 1 VACCINE CYANOCOBA 25456 LAB AGUSTÍN LAB AGUSTÍN JOSE ELIAS 5 URSULA URSULA VITAMIN HOLDINGS HOLDINGS B-12 PCV13 85986 A Uche SHEIKH VACCINE 5 KORI MUSA FOR PSC INTRAMUSC ULAR USE 25 86331 LAB AGUSTÍN LAB AGUSTÍN HYDROXY 5 URSULA URSULA INCLUDES HOLDINGS HOLDINGS FRACTIONS IF PERFORMED BASIC 05129 LAB AGUSTÍN LAB AGUSTÍN METABOLIC 5 URSULA URSULA PANEL HOLDINGS HOLDINGS CALCIUM TOTAL O2 CONC 1 E1390 BRIAN BRIAN DEL PORT 5 HOME HOME 85%/>02 MEDICAL MEDICAL CONC AT EQUIPME EQUIPME PRSC FLW RATE PRTBLE E0431 BRIAN BRIAN GASEOUS 5 HOME HOME O2 SYS MEDICAL MEDICAL RENT; EQUIPME EQUIPME FLWMTR HUMIDFR&M ASK PRTBLE E0431 BRIAN BRIAN GASEOUS 5 HOME HOME O2 SYS MEDICAL MEDICAL RENT; EQUIPME EQUIPME FLWMTR HUMIDFR&M ASK O2 CONC 1 E1390 BRIAN BRIAN DEL PORT 5 HOME HOME 85%/>02 MEDICAL MEDICAL CONC AT EQUIP[place] [address] LAB AGUSTÍN LAB AGUSTÍN THYROID 5 URSULA URSULA STIMULATI HOLDINGS HOLDINGS NG HORMONE TSH CHOLESTER 36444 A Uche SHEIKH OL 5 KORI MUSA SERUM/WHO PSC LE BLOOD TOTAL GLUCOSE 95526 Saúl SHEIKH QUANTITAT 5 KORI MUSA AQUILES BLOOD PSC XCPT REAGENT STRIP TRANSFERA 66166 A Uche SHEIKH SE 5 KORI MUSA [place] [address] A Uche SHEIKH TRIGLYCER 5 KORI MUSA IDES PSC TRANSFERA 62191 A Uche SHEIKH SE 5 KORI MUSA ALANINE PSC AMINO ALT SGPT BASIC 20796 LAB AGUSTÍN LAB AGUSTÍN METABOLIC 5 URSULA URSULA PANEL HOLDINGS HOLDINGS CALCIUM TOTAL HEMOGLOBI 30636 Saúl SHEIKH N 5 KORI STANFORD DIMPLE GLYCOSYLA PSC LNI A1C BMI DOC G8419 Saúl SHEIKH OUT NML 5 KORI STANFORD DIMPLE JATINDER NO PSC F/U PLN DOC NO RSN GVN COLLECTIO 93603 Saúl SHEIKH N VENOUS 5 KORI STANFORD DIMPLE BLOOD PSC VENIPUNCT URE LIPOPROTE 93668 Saúl SHEIKH IN DIR 5 KORI STANFORD DIMPLE MARTIN HIGH PSC DENSITY CHOLESTER OL NONINVASI 82157 ISAMAR PENN VE 5 [facility] EAR/PULSE INC INC OXIMETRY MULTIPLE DETER O2 CONC 1 E1390 BRIAN TORRES DEL PORT 5 HOME HOME 85%/>02 MEDICAL MEDICAL CONC AT EQUIPME EQUIPME PRSC FLW RATE PRTBLE E0431 BRIAN TORRES GASEOUS 5 HOME HOME O2 SYS MEDICAL MEDICAL RENT; EQUIPME EQUIPME FLWMTR HUMIDFR&M ASK RADIOLOGI 53934 ISAMAR PENN C 5 [facility] EXAMINATI INC INC ON KNEE 1/2 VIEWS RADEX HIP 19068 ISAMAR PENN 5 [facility] UNILATERA INC INC L COMPLETE MINIMUM [address] THORAX 18140 ISAMAR PENN W/O 5 [facility] CONTRAST INC INC MATERIAL GAS 84160 ISAMAR PENN DILUT/WAS 5 [facility] HOUT LUNG INC INC VOL W/WO DISTRIB VENT&[place] [address] ISAMAR PENN DIFFUSING 5 [facility] CAPACITY INC INC NONINVASI 57189 ISAMAR PENN VE 5 [facility] EAR/PULSE INC INC OXIMETRY MULTIPLE DETER BRNCDILAT 41468 ISAMAR PENN RSPSE 5 [facility] SPMTRY INC INC PRE&POST- BRNCDILAT ADMN SCREENING G0202 ISAMAR PENN 5 [facility] MAMMOGRAP INC INC HY CAROL INCL CAD WHEN PERFORMD COMPUTER- 54499 ISAMAR PENN AIDED 5 [facility] DETECTION INC INC SCREENING MAMMOGRAP HY BLOOD 01938 A C KORI A COUNT 5 KORI STANFORD COMPLETE PSC AUTO&AUTO DIFRNTL WBC LIPOPROTE 84065 A Uche Hays IN DIR 5 KORI STANFORD MARTIN HIGH PSC DENSITY CHOLESTER OL URINLS 42782 A Uche Hays DIP 5 KORI STANFORD STICK/TAB PSC LET REAGNT NON-AUTO MICRSCPY BASIC 91259 LAB AGUSTÍN LAB AGUSTÍN METABOLIC 5 URSULA URSULA PANEL HOLDINGS [place] [address] A C KORI A TRIGLYCER 5 KORI STANFORD IDES PSC TRANSFERA 52284 A Uche SHEIKH A SE 5 KORI STANFORD ALANINE PSC AMINO ALT SGPT TRANSFERA 80911 A Uche Hays SE 5 KORI STANFORD ASPARTATE PSC AMINO AST SGOT GLUCOSE 64789 A Uche Hays QUANTITAT 5 KORI STANFORD AQUILES BLOOD PSC XCPT REAGENT STRIP HEMOGLOBI 18376 A Uche Hays N 5 KORI STANFORD GLYCOSYLA PSC LIN A1C CHOLESTER 35507 A C KORI Hays OL 5 KORI STANFORD SERUM/[place] B[place] [address] LAB AGUSTÍN LAB AGUSTÍN THYROID 5 [facility] STIMULATI HOLDINGS HOLDINGS NG HORMONE TSH UNCLASSIF J3490 ISAMAR PENN IED DRUGS 5 [place] [address] ISAMAR PENN INFUSION 5 [facility] THERAPY INC INC PROPHYLAX IS/DX EA HOUR COLONOSCO 77463 ISAMAR PENN PY FLX DX 5 [facility] W/COLLJ INC INC SPEC WHEN PFRMD RADIOLOGI 37238 [facility] C EXAM 5 MEDICAL SELMA CHEST 2 IMAGING VIEWS ASS FRONTAL&[place] [address] LAB AGUSTÍN LAB AGUSTÍN THYROID 5 URSULA URSULA STIMULATI HOLDINGS HOLDINGS NG HORMONE TSH COMPREHEN 21050 LAB AGUSTÍN LAB AGUSTÍN SIVE 5 URSULA URSULA METABOLIC HOLDINGS HOLDINGS PANEL LIPID 75302 LAB AGUSTÍN LAB AGUSTÍN PANEL 5 URSULA URSULA HOLDINGS HOLDINGS LIPID 30630 LAB AGUSTÍN LAB AGUSTÍN PANEL 4 URSULA URSULA HOLDINGS HOLDINGS COMPREHEN 95063 LAB AGUSTÍN LAB AGUSTÍN SIVE 4 URSULA URSULA METABOLIC HOLDINGS HOLDINGS PANEL COLLECTIO 31141 JOY RUDDLER- N VENOUS [facility] [place] [address] LAB AGUSTÍN LAB AGUSTÍN THYROID 4 URSULA URSULA STIMULATI HOLDINGS HOLDINGS NG HORMONE TSH INTRACUTA 99913 GERTRUDE CLOUD NEOUS 4 PHYSICIAN LES TESTS PRACTICE W/[place] [address] [facility]PT [facility] DEPT FREE 7 HAL HAL YRS OR OLDER FOR IM USE CREATINE 54890 LAB AGUSTÍN LAB AGUSTÍN KINASE 4 [facility] TOTAL [facility]INGS HOLDINGS COMPREHEN 29060 LAB AGUSTÍN LAB AGUSTÍN SIVE 4 [facility] METABOLIC HOLDINGS HOLDINGS PANEL COLLECTIO 38452 JOY MCCANNON N VENOUS 4 CLINIC HEN BLOOD VENIPUNCT URE LIPID 13888 LAB AGUSTÍN LAB AGUSTÍN PANEL 4 [facility] HOLDINGS HOLDINGS BLOOD 59998 LAB AGUSTÍN LAB AGUSTÍN COUNT 4 [facility] COMPLETE [place] [address] LAB AGUSTÍN LAB AGUSTÍN THYROID 4 [facility] STIMULATI HOLDINGS HOLDINGS NG HORMONE TSH BLOOD 22277 [facility] OCCULT [facility] DEPT E ACTV HAL HAL QUAL FECES 1 DETER COMPUTER- 22263 ISAMAR PENN AIDED 4 [facility] DETECTION INC INC SCREENING MAMMOGRAP HY SCREENING G0202 ISAMAR PENN 4 [facility] MAMMOGRAP INC INC HY CAROL INCL CAD WHEN PERFORMD BLOOD 08103 [facility] OCCULT [facility] DE[facility] HL[facility] DEPT E ACTV HAL HAL QUAL FECES 1 DETER Encounters Encounter Start End Date Code Location Performer Type Date OFFICE 82386 Saúl HILL 7 7 KORI STANFORD T VISIT PSC 15 MINUTES EMERGENCY 54792 ELIZABETH VELÁSQUEZ 7 7 [facility] T VISIT HIGH/URGE NT SEVERITY OFFICE 76851 Saúl HILL 7 7 KORI STANFORD T VISIT PSC 15 MINUTES [facility]OSP[facility] - 7 7 [facility] OUTPATIEN INC T OFFICE 72005 ISAMAR OUTPATIEN 7 7 [facility] T VISIT 5 INC MINUTES OFFICE 16944 A C KORI OUTPATIEN 7 7 KORI STANFORD T VISIT PSC 25 MINUTES OFFICE 38342 [place] KE[facility] OUTPATIEN 7 7 MEDICAL T VISIT SERV 25 FOUNDATIO MINUTES N HOSPITAL ISAMAR - 7 7 [facility] OUTPATIEN INC T PERIODIC 27355 [facility] E MED EST HLTH DEPT HLTH DEPT PATIENT HAL HAL 40-64YRS OFFICE 43795 SCIFRES SCIFRES OUTPATIEN 7 7 T VISIT 10 MINUTES OFFICE 15541 SCIFRES SCIFRES OUTPATIEN 7 7 T VISIT 15 MINUTES OFFICE 51592 SCIFRTERRI SCIFRES OUTPATIEN 7 7 T VISIT 15 MINUTES OFFICE 70517 A C KORI OUTPATIEN 7 7 KORI STANFORD T VISIT PSC 25 MINUTES OFFICE 39804 ADRIANNE SILVER OUTPATIEN 7 7 T NEW 30 MINUTES OFFICE 57151 A C KORI OUTPATIJUSTIN 6 6 KORI MUSA T VISIT PSC 25 MINUTES HOSPITAL ISAMAR - 6 6 [facility] OUTPATIEN INC T HOSPITAL UNIVERSIT - 6 6 Y OUTPATI HOSPITAL T EMERGENCY 05379 UNIVERSIT 6 6 Y [facility] T VISIT HIGH/URGE NT SEVERITY OFFICE 49223 A Uche LILLY OUTANN MARIE 6 6 KORI MAYORGA T VISIT PSC 25 MINUTES HOSPITAL ISAMAR - 6 6 [facility] OUTPATIEN INC T OFFICE 17376 A C KORI OUTPATIEN 6 6 KORI MUSA T VISIT PSC 25 MINUTES HOSPITAL ISAMAR - 5 5 [facility] OUTPATIEN INC T OFFICE 52150 A C OKRI OUTPATIEN 5 5 KORI MUSA T VISIT PSC 25 MINUTES OFFICE 65899 A C KORI OUTPATIEN 5 5 KORI MUSA T VISIT PSC 15 MINUTES HOSPITAL ISAMAR - 5 5 [facility] OUTPATIEN INC T PERIODIC 97496 [facility] E MED EST HLTH DEPT HLTH DEPT PATIENT HAL HAL 40-64YRS OFFICE 28500 [place] KELLIE OUTPATIEN 5 5 MEDICAL JAM T VISIT SERV 25 FOUNDATIO MINUTES [facility] ISAMAR - 5 5 [facility] OUTPATIEN INC T OFFICE 37988 A C KORI OUTPATIEN 5 5 KORI MUSA T VISIT PSC 15 MINUTES HOSPITAL ISAMAR - 5 5 [facility] OUTPATIEN INC T OFFICE 15868 A Uche LILLY OUTPATIEN 5 5 KORI MAYORGA T VISIT PSC 15 MINUTES [facility]OSPITAL ISAMAR - 5 5 [facility] OUTPATIEN INC T OFFICE 23998 A Uche Hays OUTPATIEN 5 5 KORI STANFORD T NEW 30 PSC MINUTES [facility]OSPITAL [facility] - 5 5 [facility] OUTPATIEN INC T OFFICE 42607 JOY SWARTZ- OUTPATIEN 4 4 [facility] T VISIT 15 MINUTES OFFICE 59708 JOY SWARTZ- OUTPATIEN 4 4 [facility] T VISIT 15 MINUTES OFFICE 81273 JOY SWARTZ- OUTPATIEN 4 4 [facility] T VISIT 15 MINUTES [facility]OSP[facility] - 4 4 [facility] OUTPATIEN INC T PERIODIC 47883 [facility] 4 4 [facility] E MED EST HLTH DEPT HLTH DEPT PATIENT HAL HAL 40-64YRS
--- OUTSIDE RECORDS SUMMARY | 2017-04-02 15:53 | External Medical Summary Rpt | CCD ---
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, Unavailable Unavailable [facility] CASSIA, CASSIA Unavailable Unavailable [facility] SELMA, Unavailable Unavailable [facility] SELMA [facility] Unavailable Unavailable ASSOCIAT, [facility] Unavailable Unavailable INC, [facility] LOPEZ, LOPEZ Unavailable Unavailable VELÁSQUEZ, VELÁSQUEZ Unavailable Unavailable [facility] Un[facility] Un[facility], [facility] KILPELA, KILPELA Unavailable Unavailable [...] Unavailable Unavailable EQUIPME, [facility], Unavailable Unavailable [facility] Unavailable Un[facility] Unavailable Unavailable DEPT HAL, [facility] DEPT HAL WORTZ, WORTZ Unavailable Unavailable KORI, KORI Unavailable Unavailable KORI A, KORI A Unavailable Unavailable KORI DIMPLE, KORI Unavailable Unavailable DIMPLE Purpose Continuity of Care Document - 09-09-2013 through 2016 Problems Code Diagnosis DOS Provider Status R0602 SHORTNESS 03-07-2017 A Uche SHEIKH OF BREATH [facility] R1010 UPPER 03-07-2017 A Uche SHEIKH ABDOMINAL [facility] PAIN UNSPECIFIED R200 ANESTHESIA 02-19-2017 [facility] R202 PARESTHESIA 02-19-2017 [facility], [facility] M545 LOW BACK 02-09-2017 A Uche SHEIKH PAIN [facility] M546 PAIN IN 02-09-2017 A Uche SHEIKH THORACIC [facility] SPINE 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 INCONTINENC [facility] E T77851 SPONDYLOSIS 02-06-2017 [facility] MYELOPATH/R INC ADICULOPATH Y THOR 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 UNS EQUIPME E782 MIXED 01-03-2017 A Uche SHEIKH HYPERLIPIDE [facility] SARAH G4700 INSOMNIA 01-03-2017 A Uche SHEIKH UNSPECIFIED [facility] N289 DISORDER OF 01-03-2017 A Uche SHEIKH KIDNEY AND PSC URETER UNSPECIFIED Z205 CONTACT W/ 01-03-2017 A Uche SHEIKH & SUSPECTED PSC EXPOSURE VIRAL HEPATITIS J439 EMPHYSEMA 11-21-2016 [place] [facility] E039 HYPOTHYROID 10-05-2016 [facility] ISM [facility] UNSPECIFIED HOLDINGS Z1231 ENCOUNTER 10-05-2016 [place] [facility]IG [facility] NEOPLASM BREAST Z6821 BODY MASS 10-05-2016 [facility] INDEX BMI [facility] 21.0-21.9 HOLDINGS ADULT Z833 FAMILY 10-05-2016 [facility] HISTORY OF [facility] DIABETES HOLDINGS MELLITUS E57033 ENCOUNTER 09-12-2016 [facility] ARCHITECT EXAM DISTRICT GENERAL RTN [facility] DEPT W/O HAL ABNORMAL FIND Z1239 ENCOUNTER 09-12-2016 [facility] OTHER DISTRICT SCREENING [facility] DEPT MALIG HAL NEOPLASM BREAST 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 H2511 AGE-RELATED 08-03-2016 [facility] N[facility]LEAR CATARACT RIGHT EYE Z37703 COMBINED 08-02-2016 [facility] FORMS OF AGE-RELATED CATARACT LEFT EYE H269 UNSPECIFIED 08-02-2016 [facility]IA [facility]OC[facility]AT H2701 APHAKIA 08-02-2016 [facility] RIGHT EYE U28692 COMBINED 07-26-2016 ELTON CHANDRA MD AGE-RELATED PS CATARACT RIGHT EYE U31838 PAIN IN 07-05-2016 Saúl SHEIKH RIGHT LEG [facility] K30897 COMBINED 06-14-2016 [facility] FORMS OF AGE-RELATED CATARACT BILATERAL E538 DEFICIENCY 2016 [facility] OF OTHER [facility] SPECIFIED B HOLDINGS GROUP VITAMINS E559 VITAMIN D 2016 [facility] DEFICIENCY [facility] UNSPECIFIED HOLDINGS E785 HYPERLIPIDE 2016 [facility] SARAH [facility] UNSPECIFIED HOLDINGS R5383 OTHER 2016 [facility] FATIGUE [facility] HOLDINGS R911 SOLITARY 01-05-2016 [place] [facility] R918 OTHER 01-05-2016 [facility] NONSPECIFIC [facility] ABNORMAL INC FINDING OF LUNG FIELD J9811 ATELECTASIS 12-30-2015 [facility] R079 CHEST PAIN 12-30-2015 [place] [facility] R9431 ABNORMAL 12-30-2015 [facility] ELECTROCARD SERV IOGRAM [facility] R0789 OTHER CHEST 12-29-2015 [facility] R0989 OT SPEC SX 12-29-2015 [facility] INVLV THE CIRC & RESP SYS R198 OT SPEC SX 12-29-2015 [facility] SIGNS SERV INVLV THE FOUNDATION DIGESTV SYS & ABD E1165 TYPE 2 07-07-2015 [facility] DIABETES [facility] MELLITUS HOLDINGS [place] C05127 PAIN IN 03-30-2015 [facility] RIGHT KNEE [facility] HOLDINGS Z23 ENCOUNTER 03-30-2015 Saúl BOWMAN MD [facility] IMMUNIZATIO N 496 CHRONIC 03-03-2015 [facility]CTION MEDICAL NEC EQUIPME 2449 UNSPECIFIED 01-05-2015 [facility] HYPOTHYROID HOLDINGS ISM 12978 DIAB W/O 01-05-2015 [facility] MENTION [facility] COMP TYPE HOLDINGS II/UNS TYPE UNCNTRL 2724 OTHER AND 01-05-2015 [facility] UNSPECIFIED [facility] HOLDINGS HYPERLIPIDE SARAH 4011 ESSENTIAL 01-05-2015 [facility] HYPERTENSIO [facility] N, BENIGN HOLDINGS 56329 PAIN IN 12-31-2014 [facility] PELVIC INC REGION AND THIGH 64362 PAIN IN 12-31-2014 [facility] LOWER LEG INC V700 ROUTINE 12-15-[address] [facility] MEDICAL [facility] DEPT [email or web address] HAL CARE FACL 58430 OBSTRUCTIVE 11-25-2014 [facility] CHRONIC [facility] BRONCHITIS [facility] WITHOUT EXACERBAT 4920 EMPHYSEMATO 11-25-2014 [facility] US BLEB SERV [facility] 25414 CHRONIC 11-25-2014 [facility] RESPIRATORY SERV FAILURE [facility] 59555 OTHER 11-25-2014 [facility] NONSPECIFIC SERV ABNORMAL [facility] FINDING OF LUNG FIELD 48003 OSTEOARTHRO 11-18-2014 [place] [facility] UNSPEC MEDICAL GEN/LOC IMAGING ASS PELV REGION&THIG H 52721 UNSPECIFIED 11-18-2014 [place] CYST OF MEDICAL BONE [facility] 4928 OTHER 10-09-2014 [place] EMPHYSEMA [facility] 7862 COUGH 10-09-2014 [facility] 07743 IRRITABILIT 09-25-2014 Saúl Mathews MD PSC V7610 UNSPECIFIED 09-22-2014 [facility] SCREENING INC V7612 OTHER 09-22-2014 [place] [facility] MAMMOGRAM IMAGING [facility] 59503 OTHER 09-15-2014 [facility] MALAISE AND [facility]A FATIGUE HOLDINGS 7881 DYSURIA 09-15-2014 [facility] HOLDINGS 67936 UNSPECIFIED 09-15-2014 [facility] URINARY [facility] INCONTINENC HOLDINGS E V180 FAMILY 09-15-2014 [facility] HISTORY OF [facility] DIABETES HOLDINGS MELLITUS 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 [facility] V5869 LONG-TERM 09-07-2014 [facility] (CURRENT[facility] USE OF INC OTHER MEDICATIONS V7651 SPECIAL 09-07-2014 [facility] SCREENING SERV FOR [facility] MALIGNANT NEOPLASMS COLON 4779 ALLERGIC 06-25-2014 [facility] RHINITIS [facility] CAUSE HOLDINGS UNSPECIFIED 48989 OSTEOARTHRO 06-25-2014 [facility] S UNSPEC [facility] WHETHER HOLDINGS GEN/LOC UNSPEC SITE 6989 UNSPECIFIED 03-26-2014 [facility] DISORDER V069 NEED PROPH 12-25-2013 [facility] VACCINATION [facility] W/UNSPEC [facility] DEPT COMB HAL VACCINE V770 SCREENING 12-22-2013 [facility] FOR THYROID CLINIC DISORDER V7791 SCREENING 12-22-2013 [facility] FOR LIPOID AMERIC DISORDERS HOLDINGS V811 SCREENING 12-22-2013 [facility] FOR AMERIC HYPERTENSIO HOLDINGS N 07214 INCONCLUSIV 09-15-2013 [place] [facility] Allergies, Adverse [...] 09 10 60 30 00 CL Ac MD 46 -1 -1 .0 00 IN ti [...] 44 ZA 80 17 17 25 PH MD 5 07 AR IN MA E CY [...] 44 ZA 80 17 17 13 PH MD 5 34 AR IN MA E CY 10 MG TA BL ET MD 00 09 09 10 5 00 CL Ac ED 05 -0 -2 .0 00 IN ti NI 40 1- 9- 00 00 IC ve SO 01 20 20 44 NE 82 17 17 13 PH 9 35 AR 20 MA CY MG TA BL ET MD 00 08 09 10 5 00 CL [...] 08 09 60 30 00 CL Ac MD 16 -2 -1 .0 00 IN ti [...] 07 08 60 30 00 CL Ac MD 16 -2 -1 .0 00 IN ti [...] 06 07 60 30 00 CL Ac MD 16 -3 -2 .0 00 IN ti [...] 60 3- 7- 00 00 IC ve MD 00 20 20 43 ED 10 17 17 38 PH NI 3 02 AR SO MA LO CY NE 4 MG DO SE PK NA 65 06 06 60 30 00 CL Ac MD 16 -0 -3 .0 00 IN ti [...] 03 04 60 30 00 CL Ac MD 16 -2 -2 .0 00 IN ti [...] 02 03 60 30 00 CL Ac MD 16 -2 -2 .0 00 IN ti [...] 01 02 60 30 00 CL Ac MD 46 -2 -1 .0 00 IN ti [...] CY 1% EY E DR OP S MD 60 01 01 10 30 00 CL [...] SQUARE METERS Comment: If this patient is -Panamanian, then multiply the Comment: result by 1.210. [...] blood 15:16 platele t mean volume tremaine [place] % = 6.8 % 1.7-9.3 complet 017 [...] Procedure DOS Code Location Performer Comment COLLECTIO 96213 A C SHEIKH N VENOUS 7 [facility] [place] BLOOD PSC VENIPUNCT URE BLOOD 20361 A C SHEIKH COUNT 7 K[facility] [place] COMPLETE PSC AUTO&[place] [address] [place] [facility] HEAD/BRAI 7 MEDICAL N W/O IMAGING CONTRAST ASS MATERIAL RADEX 11017 [place] GOLDSTEIN SPINE 7 MEDICAL THORACIC IMAGING 3 VIEWS ASS THERAPEUT 34935 [facility] IC 7 [facility] MEM [...] RENT; EQUIPME EQUIPME FLWMTR HUMIDFR&M ASK TRANSFERA 25817 A C SHEIKH SE 7 [facility] [place] ASPARTATE PSC AMINO AST SGOT TRANSFERA 56312 A C A C SE 7 KORI SHEIKH MD ALANINE PSC PSC AMINO ALT SGPT GLUCOSE 55527 A C KORI QUANTITAT 7 [facility]I [place] AQUILES BLOOD PSC XCPT REAGENT STRIP COLLECTIO 44691 A C A C N VENOUS 7 [...] CAROL ASS INCL CAD WHEN PERFORMD SCREENING 39466 [facility] MAMMOGRAP INC INC HY BI 2-VIEW BREAST INC CAD BASIC 75119 [facility] LAB AG[facility]ÍN METABOLIC 7 U[facility]A URSULA PANEL [place] [address] LAB [facility] THYROID 7 URSULA [...] EQUIPME EQUIPME FLWMTR HUMIDFR&M ASK OPH BMTRY 22551 ADRIANNE SILVER PRTL 7 COHER INTRFRMTR Y IO LENS PWR KELLY ANESTHESI 05335 [place] [facility] A EYE 7 ANESTHESI LENS A SURGERY ASSOCIAT CATARACT 94000 ELTON S WORTZ REMOVAL 7 GUZMÁN INSERTION PS OF LENS CATARACT 77958 ELTON S WORTZ REMOVAL 7 GUZMÁN INSERTION MD PS OF LENS ANESTHESI 47969 [place] [facility] A EYE 7 ANESTHESI LENS A SURGERY ASSOCIAT BASIC 15536 [facility] LAB AGUSTÍN METABOLIC 7 URSULA URSULA PANEL HOLDINGS HOLDINGS CALCIUM TOTAL BLOOD 13561 LAB AG[facility]ÍN LAB AGUSTÍN COUNT 7 URSULA URSULA COMPLETE HOLDINGS HOLDINGS AUTO&AUTO DIFRNTL WBC TRANSFERA 41312 A C A C SE 7 KORI SHEIKH MD ALANINE PSC PSC AMINO ALT SGPT TRANSFERA 13848 A C KORI SE 7 KORI [place] ASPARTATE PSC AMINO AST SGOT GLUCOSE 52503 A C KORI QUANTITAT 7 KORI [place] AQUILES BLOOD PSC XCPT REAGENT STRIP O2 CONC 1 E1390 [facility] TORRES DEL PORT 7 HOME HOME 85%/>02 MEDICAL MEDICAL CONC AT EQUIPME EQUIPME PRSC FLW RATE PRTBLE E0431 [facility] TORRES GASEOUS 7 HOME HOME O2 SYS MEDICAL MEDICAL RENT; EQUIPME EQUIPME FLWMTR HUMIDFR&M ASK OPH BMTRY 60283 ADRIANNE SILVER PRTL 7 COHER INTRFRMTR Y [...] AT EQUIPME EQUIPME PRSC FLW RATE BASIC 81413 [facility] LAB AGUSTÍN METABOLIC 6 URSULA URSULA PANEL HOLDINGS HOLDINGS CALCIUM TOTAL BLOOD 26413 A C A C COUNT 6 KORI SHEIKH MD COMPLETE PSC PSC AUTO&AUTO DIFRNTL WBC 25 73017 [facility] LAB AG[facility] HYDROXY 6 URSULA URSULA INCLUDES HOLDINGS HOLDINGS FRACTIONS IF PERFORMED CYANOCOBA 22129 LAB [facility]N LAB AGUSTÍN JOSE ELIAS 6 URSULA URSULA VITAMIN HOLDINGS HOLDINGS B-12 [place] [address] LAB AGUSTÍN LAB AGUSTÍN THYROID 6 URSULA URSULA STIMULATI HOLDINGS HOLDINGS NG HORMONE TSH GLUCOSE 34221 A C KORI QUANTITAT 6 KORI MUSA AQUILES BLOOD PSC XCPT REAGENT STRIP TRANSFERA 26745 A C KORI SE 6 KORI [place] DIMPLE ASPARTATE PSC AMINO AST SGOT TRANSFERA 82616 A C KORI SE 6 KORI [place] DIMPLE ALANINE PSC AMINO ALT SGPT HEMOGLOBI 48448 A C A C N 6 KORI [...] EQUIPME EQUIPME FLWMTR [place]UMIDFR&[place] [address] LAB [facility] LAB AGUSTÍN THYROID 6 URSULA URSULA STIMULATI HOLDINGS HOLDINGS NG HORMONE TSH CT THORAX 11926 [facility] W/O 6 [facility] CONTRAST INC INC MATERIAL BASIC 43816 LAB AG[facility]ÍN LAB AGUSTÍN METABOLIC 6 URSULA URSULA PANEL HOLDINGS HOLDINGS CALCIUM TOTAL ECG 71162 UNIVERSIT UNIVERSIT ROUTINE 6 Y Y ECG [facility] W/LEAST 12 LDS TRCG ONLY W/O I&[place] [address] [facility] TROPONIN 6 Y Y QUANTITAT [facility] AQUILES ECG 92518 [place] RADHA CHI ROUTINE 6 MEDICAL ECG SERV W/LEAST FOUNDATIO 12 LDS N I&R ONLY RADIOLOGI 90947 MALIK GARZA C EXAM 6 MEDICAL THOMAS [...] 85%/>02 MEDICAL MEDICAL CONC AT EQUIPME EQUIPME [facility] FLW RATE BASIC 75823 [facility] METABOLIC 6 DIAGNOSTI DIAGNOSTI PANEL CS CS CALCIUM TOTAL LIPOPROTE 03248 A C KILPELA IN DIR 6 KORI STANFORD JESaúl MARTIN HIGH [place] [address] [facility] THYROID 6 DIAGNOSTI DIAGNOSTI STIMULATI CS CS NG HORMONE TSH GLUCOSE 57004 A C KILPELA QUANTITAT 6 KORI MAYORGA AQUILES BLOOD [place] [address] A C KILPELA TRIGLYCER 6 KORI [place] JEA IDES PSC TRANSFERA 18595 A C KILPELA SE 6 KORI [place] JESaúl ALANINE PSC AMINO ALT SGPT TRANSFERA 09311 A C KILPELA SE 6 KORI [place] JESaúl ASPARTATE PSC AMINO AST SGOT CHOLESTER 06622 A C KILPELA OL 6 KORI MAYORGA SERUM/WHO PSC LE BLOOD TOTAL SCREENING G0202 [facility] 6 [facility] MAMMOGRAP INC INC HY CAROL INCL CAD WHEN PERFORMD COMPUTER- 96486 [facility] AIDED 6 [facility] DETECTION INC INC SCREENING MAMMOGRAP HY O2 CONC 1 E1390 BRIAN DYER PORT 6 HOME HOME 85%/>02 MEDICAL MEDICAL CONC AT EQUIPME EQUIPME [facility] FLW RATE PRTBLE E0431 [facility]AN TORRES GASEOUS [...] RENT; EQUIPME EQUIPME FLWMTR HUMIDFR&M ASK BASIC 05391 [facility]ÍN LAB AGUSTÍN METABOLIC 6 URSULA URSULA PANEL HOLDINGS HOLDINGS CALCIUM TOTAL LIPOPROTE 74265 A Uche SHEIKH IN DIR 6 KORI MUSA MARTIN HIGH PSC DENSITY CHOLESTER OL CYANOCOBA 36157 LAB AG[facility]ÍN LAB AGUSTÍN JOSE ELIAS 6 URSULA URSULA VITAMIN HOLDINGS HOLDINGS B-12 CHOLESTER 81840 A Uche SHEIKH OL 6 KORI MUSA SERUM/WHO PSC LE BLOOD TOTAL GLUCOSE 31666 A Uche SHEIKH QUANTITAT 6 KORI MUSA AQUILES BLOOD PSC XCPT REAGENT STRIP TRANSFERA 80324 A Uche SHEIKH SE 6 KORI [place] [address] A Uche SHEIKH TRIGLYCER 6 KORI MUSA IDES PSC HEMOGLOBI 50149 A Uche SHEIKH N 6 KORI MUSA GLYCOSYLA PSC LIN A1C TRANSFERA 44291 A Uche SHEIKH SE 6 KORI MUSA [place] [address] LAB AGUSTÍN LAB AGUSTÍN THYROID 6 URSUAL URSULA STIMULATI HOLDINGS HOLDINGS NG HORMONE TSH [...] EQUIPME EQUIPME FLWMTR HUMIDFR&M ASK CT THORAX 60487 [facility] W/O 5 [facility] CONTRAST INC INC MATERIAL O2 CONC 1 E1390 BRIAN TORRES DEL PORT 5 HOME HOME 85%/>02 MEDICAL MEDICAL CONC AT EQUIPME EQUIPME PRSC FLW RATE PRTBLE E0431 [facility]AN TORRES GASEOUS 5 HOME HOME O2 SYS MEDICAL MEDICAL RENT; EQUIPME EQUIPME FLWMTR HUMIDFR&M ASK IM ADM 10113 A Uche SHEIKH PRQ ID 5 KORI STAN[place]ORD DIMPLE SUBQ/[place] [address] LAB AGUSTÍN LAB AGUSTÍN THYROID 5 [facility] STIMULATI HOLDINGS HOLDINGS NG HORMONE TSH TRANSFERA 91814 A Uche SHEIKH SE 5 KORI MUSA ALANINE PSC AMINO ALT SGPT HEMOGLOBI 13719 A Uche SHEIKH N 5 KORI NGUYEND GLYCOSY[place] [address] A Uche SHEIKH TRIGLYCER 5 KORI MUSA IDES PSC IIV3 VACC 43162 Saúl SHEIKH 5 KORI MUSA PRESERVAT PSC AQUILES FREE 0.5 ML DOSAGE IM USE TRANSFERA 13728 A Uche SHEIKH SE 5 KORI MUSA ASPARTATE PSC AMINO AST SGOT GLUCOSE 90055 Saúl SHEIKH QUANTITAT 5 KORI MUSA AQUILES BLOOD PSC XCPT REAGENT STRIP CHOLESTER 98575 A Uche SHEIKH OL 5 KORI MUSA SERUM/WHO PSC LE BLOOD TOTAL LIPOPROTE 70834 Saúl SHEIKH IN DIR 5 KORI MUSA MARTIN HIGH PSC DENSITY CHOLESTER OL MOST 3044F A Uche SHEIKH RECENT 5 KORI MUSA HEMOGLOBI PSC N A1C LEVEL < 7.0% IM ADM 76575 Saúl SHEIKH PRQ ID 5 KORI MUSA SUBQ/IM PSC NJXS 1 VACCINE CYANOCOBA 87458 LAB AGUSTÍN LAB AGUSTÍN JOSE ELIAS 5 URSULA URSULA VITAMIN HOLDINGS HOLDINGS B-12 PCV13 78594 A Uche SHEIKH VACCINE 5 KORI MUSA FOR PSC INTRAMUSC ULAR USE 25 06309 LAB AG[facility]ÍN LAB AGUSTÍN HYDROXY 5 URSULA URSULA INCLUDES HOLDINGS HOLDINGS FRACTIONS IF PERFORMED BASIC 72361 LAB AGUSTÍN LAB AGUSTNÍ METABOLIC 5 URSULA URSULA PANEL HOLDINGS HOLDINGS [...] EQUIPME [place] [address] LAB AGUSTÍN LAB AGUTSÍN THYROID 5 URSULA URSULA STIMULATI HOLDINGS HOLDINGS NG HORMONE TSH CHOLESTER 07128 A Uche SHEIKH OL 5 KORI MUSA SERUM/WHO PSC LE BLOOD TOTAL GLUCOSE 08107 Saúl SHEIKH QUANTITAT 5 KORI MUSA AQUILES BLOOD PSC XCPT REAGENT STRIP TRANSFERA 23740 A Uche SHEIKH SE 5 KORI MUSA [place] [address] A Uche SHEIKH TRIGLYCER 5 KORI MUSA IDES PSC TRANSFERA 52730 A Uche SHEIKH SE 5 KORI MUSA ALANINE PSC AMINO ALT SGPT BASIC 53160 LAB AGUSTÍN LAB AGUSTÍN METABOLIC 5 URSULA URSULA PANEL HOLDINGS HOLDINGS CALCIUM TOTAL HEMOGLOBI 96736 Saúl SHEIKH N 5 KORI [place] DIMPLE GLYCOSYLA PSC LIN A1C BMI DOC G8419 Saúl SHEIKH OUT NML 5 KOIR ST[place] DIMPLE JATINDER NO PSC F/U PLN DOC NO RSN GVN COLLECTIO 64075 Saúl SHEIKH N VENOUS 5 KORI [place] DIMPLE BLOOD PSC VENIPUNCT URE LIPOPROTE 64325 Saúl SHEIKH IN DIR 5 KORI [place] DIMPLE MARTIN HIGH PSC DENSITY CHOLESTER OL NONINVASI 83587 [facility] VE 5 [facility] EAR/PULSE INC INC OXIMETRY MULTIPLE DETER O2 CONC 1 E1390 BRIAN TORRES DEL PORT 5 HOME HOME 85%/>02 MEDICAL MEDICAL CONC AT EQUIPME EQUIPME PRSC FLW RATE PRTBLE E0431 BRIAN TORRES GASEOUS 5 HOME HOME O2 SYS MEDICAL MEDICAL RENT; EQUIPME EQUIPME FLWMTR HUMIDFR&M ASK RADIOLOGI 88379 [facility] C 5 [facility] EXAMINATI INC INC ON KNEE 1/2 VIEWS RADEX HIP 94186 [facility] 5 [facility] UNILATERA INC INC L COMPLETE MINIMUM [address] THORAX 02155 [facility] W/O 5 [facility] CONTRAST INC INC MATERIAL GAS 02009 [facility] DILUT/WAS 5 [facility] HOUT LUNG INC INC VOL W/WO DISTRIB VENT&[place] [address] [facility] DIFFUSING 5 [facility] CAPACITY INC INC NONINVASI 72143 [facility] VE 5 [facility] EAR/PULSE INC INC OXIMETRY MULTIPLE DETER BRNCDILAT 02563 [facility] RSPSE 5 [facility]OS[facility] SPMTRY INC INC PRE&POST- BRNCDILAT ADMN SCREENING G0202 [facility] 5 [facility]OS[facility] MAMMOGRAP INC INC HY CAROL INCL CAD WHEN PERFORMD COMPUTER- 86691 [facility] AIDED 5 [facility] DETECTION INC INC SCREENING MAMMOGRAP HY BLOOD 05954 A C KORI A COUNT 5 KORI [place] COMPLETE PSC AUTO&AUTO DIFRNTL WBC LIPOPROTE 16940 A Uche Hays IN DIR 5 KORI [place] MARTIN HIGH PSC DENSITY CHOLESTER OL URINLS 92301 A Uche Hays DIP 5 KORI STAN[place]ORD STICK/TAB PSC LET REAGNT NON-AUTO MICRSCPY BASIC 83425 LAB AGUSTÍN LAB AGUSTÍN METABOLIC 5 URSULA URSULA PANEL HOLDINGS [place] [address] A C KORI A TRIGLYCER 5 KORI [place] IDES PSC TRANSFERA 21978 A Uche SHEIKH A SE 5 KORI [place] ALANINE PSC AMINO ALT SGPT TRANSFERA 79537 A Uche Hays SE 5 KORI [place] ASPARTATE PSC AMINO AST SGOT GLUCOSE 35037 A Uche Hays QUANTITAT 5 KORI [place] AQUILES BLOOD PSC XCPT REAGENT STRIP HEMOGLOBI 14279 A Uche Hays N 5 KORI STAN[place]ORD GLYCOSYLA PSC LIN A1C CHOLESTER 66909 A C KORI Hays OL 5 KORI STAN[place]ORD SERUM/[place] B[place] [address] LAB AGUSTÍN LAB AGUSTÍN THYROID 5 [facility] STIMULATI HOLDINGS HOLDINGS NG HORMONE TSH UNCLASSIF J3490 [facility] IED DRUGS 5 [place] [address] [facility] INFUSION 5 [facility] THERAPY INC INC PROPHYLAX IS/DX EA HOUR COLONOSCO 56653 [facility] PY FLX DX 5 [facility] W/COLLJ INC INC SPEC WHEN PFRMD RADIOLOGI 95472 [facility] C EXAM 5 MEDICAL SELMA CHEST 2 IMAGING VIEWS ASS FRONTAL&[place] [address] LAB AGUSTÍN LAB AGUSTÍN THYROID 5 URSULA URSULA STIMULATI HOLDINGS HOLDINGS NG HORMONE TSH COMPREHEN 32520 LAB AGUSTÍN LAB AGUSTÍN SIVE 5 URSULA URSULA METABOLIC HOLDINGS HOLDINGS PANEL LIPID 34721 LAB AGUSTÍN LAB AGUSTÍN PANEL 5 URSULA URSULA HOLDINGS HOLDINGS LIPID 81888 LAB AGUSTÍN LAB AGUSTÍN PANEL 4 URSULA URSULA HOLDINGS HOLDINGS COMPREHEN 93147 LAB AGUSTÍN LAB AGUSTÍN SIVE 4 URSULA URSULA METABOLIC HOLDINGS HOLDINGS PANEL COLLECTIO 62549 JOY RUDDLER- N VENOUS 4 CLINIC [place] [address] LAB AGUSTÍN LAB AGUSTÍN THYROID 4 URSULA URSULA STIMULATI HOLDINGS HOLDINGS NG HORMONE TSH INTRACUTA 29852 GERTRUDE CLOUD NEOUS 4 PHYSICIAN LES TESTS PRACTICE W/[place] [address] [facility] V[facility] DEPT [facility]TH DEPT FREE 7 HAL HAL YRS OR OLDER FOR IM USE CREATINE 97189 LAB [facility] LAB AGUSTÍN KINASE 4 [facility] TOTAL [facility] COMPREHEN 09998 LAB AG[facility]ÍN LAB AGUSTÍN SIVE 4 [facility] METABOLIC [facility] PANEL COLLECTIO 84036 JOY [place] N VENOUS 4 CLINIC HEN BLOOD VENIPUNCT URE LIPID 48131 LAB AG[facility]ÍN LAB AG[facility]ÍN PANEL 4 [facility] BLOOD 69402 LAB AG[facility]ÍN LAB AGUSTÍN COUNT 4 [facility] COMPLETE [place] [address] LAB AGUSTÍN LAB AGUSTÍN THYROID 4 [facility] STIMULATI [facility] NG HORMONE TSH BLOOD 20130 [facility] DEPT [facility] DEPT E ACTV HAL HAL QUAL FECES 1 DETER COMPUTER- [id number] [facility] [place] AIDED [facility] DETECTION INC INC SCREENING MAMMOGRAP HY SCREENING G0202 [facility]ENN 4 [facility] MAMMOGRAP INC INC HY CAROL INCL CAD WHEN PERFORMD BLOOD 21280 [facility] 4 [facility] DEPT HLTH DEPT E ACTV HAL HAL QUAL FECES 1 DETER Encounters Encounter Start End Date Code Location Performer Type Date OFFICE 05348 [place] 7 7 [facility] T VISIT PSC 15 MINUTES EMERGENCY 46443 ELIZABETH VELÁSQUEZ 7 7 [facility] T VISIT HIGH/URGE NT SEVERITY OFFICE 65624 [place] 7 7 [facility] T VISIT PSC 15 MINUTES [facility]OSP[facility] - [facility] 7 [facility] OUTPATIEN INC T OFFICE 89615 [facility] OUTPATIEN 7 7 [facility] T VISIT 5 INC MINUTES OFFICE 52839 A C KORI OUTPATIEN 7 7 [facility] T VISIT PSC 25 MINUTES OFFICE 56135 [place] OUTPATIEN 7 7 MEDICAL T VISIT SERV 25 FOUNDATIO MINUTES N [facility]OSP[facility] - 7 7 [facility] OUT[facility] T PERIODIC 61517 [facility] E MED EST HLTH DEPT HLTH DEPT PATIENT HAL HAL 40-64YRS OFFICE 13773 SCIFRES SCIFRES OUTPATIEN 7 7 T VISIT 10 MINUTES OFFICE 65199 SCIFRES SCIFRES OUTPATIEN 7 7 T VISIT 15 MINUTES OFFICE 95597 SCIFRTERRI SCIFRES OUTPATIEN 7 7 T VISIT 15 MINUTES OFFICE 87125 A C K[facility]I OUTPATIEN 7 7 [facility] [place] T VISIT PSC 25 MINUTES OFFICE 90066 ADRIANNE SILVER OUTPATIEN 7 7 T NEW 30 MINUTES OFFICE 72986 A C [facility] OUTPATIJUSTIN 6 6 [facility] MUSA T VISIT PSC 25 MINUTES [facility]OSP[facility] - 6 6 [facility] OUTPATIEN INC T HOSPITAL UNIVERSIT - 6 6 Y OUTPATI HOSPITAL T EMERGENCY 97137 UNIVERSIT 6 6 Y [facility] T VISIT HIGH/URGE NT SEVERITY OFFICE 93495 A Uche LILLY OUTANN MARIE 6 6 K[facility]I [place]ORGA T VISIT PSC 25 MINUTES HOSPITAL [facility] - 6 6 [facility] OUTPATIEN INC T OFFICE 89483 A C KORI OUTPATIEN 6 6 K[facility]I MUSA T VISIT PSC 25 MINUTES [facility]OSPITAL [facility] - 5 5 [facility] OUTPATIEN INC T OFFICE 64669 A C KORI OUTPATIEN 5 5 KORI MUSA T VISIT PSC 25 MINUTES OFFICE 09011 A C KORI OUTPATIEN 5 5 K[facility] MUSA T VISIT PSC 15 MINUTES [facility]OSP[facility] - 5 5 [facility] OUTPATIEN INC T PERIODIC 98921 [facility] DEPT HLTH DEPT PATIENT HAL HAL 40-64YRS OFFICE 86228 [place] KELLIE OUTPATIEN 5 5 MEDICAL JAM T VISIT SERV 25 FOUNDATIO MINUTES [facility] ISAMAR - 5 5 [facility] OUTPATIEN INC T OFFICE 96768 A C KORI OUTPATIEN 5 5 KORI MUSA T VISIT PSC 15 MINUTES [facility]OSP[facility] - 5 5 [facility] OUTPATIEN INC T OFFICE 98144 A [facility]che LILLY OUTPATIEN 5 5 K[facility] MAYORGA T VISIT PSC 15 MINUTES [facility] - 5 5 [facility] OUTPATI[facility] INC T OFFICE 32256 A [place] OUTPATIEN 5 5 [facility] [place] T NEW 30 PSC MINUTES [facility] - 5 5 [facility] T OFFICE 22320 JOY SWARTZ- OUTPATIEN 4 4 [facility] [place] T VISIT 15 MINUTES OFFICE 58027 JOY SWARTZ- OUTPATIEN 4 4 [facility] [place] T VISIT 15 MINUTES OFFICE 75808 JOY SWARTZ- OUTPATIEN 4 4 [facility] [place] T VISIT 15 MINUTES [facility] - 4 4 [facility] T PERIODIC 52468 [facility] E MED EST HLTH DEPT HLTH DEPT PATIENT HAL HAL 40-64YRS
--- OUTSIDE RECORDS SUMMARY | 2017-04-02 15:58 | External Medical Summary Rpt | CCD ---
Author Author , DILAN Lugo DILAN Address Unknown Phone [email or web address] Care Team Providers Care Wiring Technician Name Role Phone A Uche SHEIKH MD PSC, Saúl Unavailable Unavailable Uche SHEIKH MD PSC PEDRO LUIS LES, PEDRO LUIS Unavailable Unavailable LES GOLDSTEIN, GOLDSTEIN Unavailable Unavailable [facility], Unavailable Unavailable [facility], Unavailable [facility]available [facility] Un[facility] CASSIA, CASSIA Unavailable Unavailable [facility]SS[facility] SELMA, Unavailable Unavailable [facility] SELMA [facility] Unavailable Unavailable [facility], [facility] Un[facility] Un[facility] INC, [facility] LOPEZ, LOPEZ Unavailable Unavailable VELÁSQUEZ, VELÁSQUEZ Unavailable Unavailable [facility] KILPELA, KILPELA Unavailable Unavailable [...] Unavailable [facility], Unavailable Unavailable [facility], Unavailable [facility]available [facility], [facility] MINI HEN, MINI Unavailable Unavailable [facility], Unavailable Unavailable [facility] SCIFRES, SCIFRES Unavailable Unavailable SCIFRES, SCIFRES Unavailable Unavailable SILVER, SILVER Unavailable Unavailable SILVER, SILVER Unavailable Unavailable [facility] Unavailable Unavailable [facility], [facility] Unavailable Unavailable [facility], [facility] BRI TER, BRI TER Unavailable Unavailable [facility], Unavailable Unavailable [facility] Unavailable Un[facility] Unavailable Unavailable DEPT HAL, [facility] DEPT HAL WORTZ, WORTZ Unavailable Unavailable KORI, KORI Unavailable Unavailable KORI A, KORI A Unavailable Unavailable KORI DIMPLE, KORI Unavailable Unavailable DIMPLE Purpose Continuity of Care Document - 09-09-2013 through 2016 Problems Code Diagnosis DOS Provider Status R0602 SHORTNESS 03-07-2017 A Uche SHEIKH OF BREATH [facility] R1010 UPPER 03-07-2017 A Uche SHEIKH ABDOMINAL [facility] PAIN UNSPECIFIED R200 ANESTHESIA 02-19-2017 [facility] R202 PARESTHESIA 02-19-2017 [facility]YS[facility]ANS, [facility] M545 LOW BACK 02-09-2017 A Uche SHEIKH PAIN [facility] M546 PAIN IN 02-09-2017 A Uche SHEIKH THORACIC [facility] SPINE 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 INCONTINENC [facility] E [id number] SPONDYLOSIS 02-06-2017 [facility] MYELOPATH/R INC ADICULOPATH Y THOR 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 UNS EQUIPME E782 MIXED 01-03-2017 A Uche SHEIKH HYPERLIPIDE [facility] SARAH G4700 INSOMNIA 01-03-2017 A Uche SHEIKH UNSPECIFIED [facility] N289 DISORDER OF 01-03-2017 A Uche SHEIKH KIDNEY AND PSC URETER UNSPECIFIED Z205 CONTACT W/ 01-03-2017 A Uche SHEIKH & SUSPECTED PSC EXPOSURE VIRAL HEPATITIS J439 EMPHYSEMA 11-21-2016 [place] [facility]PEC[facility] E039 HYPOTHYROID 10-05-2016 [facility] ISM [facility] UNSPECIFIED HOLDINGS Z1231 ENCOUNTER 10-05-2016 [facility] SCREENING [facility]ICAL MAMMO [facility] NEOPLASM BREAST Z6821 BODY MASS 10-05-2016 [facility] INDEX BMI [facility]A 21.0-21.9 HOLDINGS ADULT Z833 FAMILY 10-05-2016 [facility] HISTORY OF [facility] DIABETES HOLDINGS MELLITUS Y68627 ENCOUNTER 09-12-2016 [facility] 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 DISTRICT GENERAL RTN [facility] DEPT W/O HAL ABNORMAL FIND Z1239 ENCOUNTER 09-12-2016 [facility] OTHER [facility] SCREENING [facility] DEPT MALIG HAL NEOPLASM BREAST 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 H2511 AGE-RELATED 08-03-2016 [facility] NUCLEAR CATARACT RIGHT EYE Q05687 COMBINED 08-02-2016 [facility] FORMS OF AGE-RELATED CATARACT LEFT EYE H269 UNSPECIFIED 08-02-2016 [place] [facility]IA ASSOC[facility]AT H2701 APHAKIA 08-02-2016 [facility] RIGHT EYE I79057 COMBINED 07-26-2016 [facility] WASSERMAN OF [facility] [place] AGE-RELATED PS CATARACT RIGHT EYE A22807 PAIN IN 07-05-2016 Saúl SHEIKH RIGHT LEG [facility] U91232 COMBINED 06-14-2016 [facility] FORMS OF AGE-RELATED CATARACT BILATERAL E538 DEFICIENCY 2016 [facility] OF OTHER [facility] SPECIFIED B HOLDINGS GROUP VITAMINS E559 VITAMIN D 2016 [facility] DEFICIENCY [facility] UNSPECIFIED HOLDINGS E785 HYPERLIPIDE 2016 [facility] SARAH [facility] UNSPECIFIED HOLDINGS R5383 OTHER 2016 [facility] FATIGUE [facility] HOLDINGS R911 SOLITARY 01-05-2016 [facility] R918 OTHER 01-05-2016 [facility] NONSPECIFIC [facility] ABNORMAL INC FINDING OF LUNG FIELD J9811 ATELECTASIS 12-30-2015 [facility] R079 CHEST PAIN 12-30-2015 [facility] R9431 ABNORMAL 12-30-2015 [facility] ELECTROCARD SERV IOGRAM [facility] R0789 OTHER CHEST 12-29-[address] [facility] R0989 OTH SPEC SX 12-29-2015 [facility] INVLV THE CIRC & RESP SYS R198 OTH SPEC SX 12-29-2015 [facility] SIGNS SERV INVLV THE [facility]OUNDATION DIGESTV SYS & ABD E1165 TYPE 2 07-07-2015 [facility] DIABETES [facility] MELLITUS HOLDINGS [place] HYPERGLYCEM [place] Y64824 PAIN IN 03-30-2015 [facility] RIGHT KNEE [facility] HOLDINGS Z23 ENCOUNTER 03-30-2015 Saúl BOWMAN MD [facility] IMMUNIZATIO N 496 CHRONIC 03-03-2015 [facility] OBSTRUCTION MEDICAL NEC EQUIPME 2449 UNSPECIFIED 01-05-2015 [facility] HYPOTHYROID HOLDINGS ISM 79456 DIAB W/O 01-05-2015 [facility] MENTION [facility] COMP TYPE HOLDINGS II/UNS TYPE UNCNTRL 2724 OTHER AND 01-05-2015 [facility] UNSPECIFIED [facility] HOLDINGS HYPERLIPIDE SARAH 4011 ESSENTIAL 01-05-2015 [facility] HYPERTENSIO U[facility] N, BENIGN HOLDINGS 69143 PAIN IN 12-31-2014 [facility] PELVIC INC REGION AND THIGH 81734 PAIN IN 12-31-2014 [facility] LOWER LEG INC V700 ROUTINE 12-15-2014 [facility] MEDICAL [facility] DEPT [email or web address] CARE FACL 67843 OBSTRUCTIVE 11-25-2014 [facility] CH[facility] BRONCHITIS [facility] WITHOUT EXACERBAT 4920 EMPHYSEMATO 11-25-2014 [facility] US BLEB SERV [facility] 04090 CHRONIC 11-25-2014 [facility]PIRATORY SERV FAILURE [facility] 70553 OTHER 11-25-2014 [facility] NONSPECIFIC SERV ABNORMAL [facility] FINDING OF LUNG FIELD 02432 OSTEOARTHRO 11-18-2014 [facility] S UNSPEC MEDICAL GEN/LOC IMAGING ASS PELV REGION&THIG H 83752 UNSPECIFIED 11-18-2014 [facility] CYST OF MEDICAL BONE IM[facility]ING [facility] 4928 OTHER 10-09-2014 [facility] EMPHYSEMA [facility] 7862 COUGH 10-09-2014 [facility] INC 14981 IRRITABILIT 09-25-2014 Saúl Mathews MD PSC V7610 UNSPECIFIED 09-22-2014 [facility] SCREENING INC V7612 OTHER 09-22-2014 [facility] SCREEN[facility] MEDICAL MAMMOGRAM IMAGING ASS 34373 OTHER 09-15-2014 [facility] MALAISE AND URS[facility]A FATIGUE HOLDINGS 7881 DYSURIA 09-15-2014 [facility] U[facility]A HOLDINGS 33336 UNSPECIFIED 09-15-2014 [facility] URINARY [facility] INCONTINENC HOLDINGS E V180 FAMILY 09-15-2014 [facility] HISTORY OF [facility] DIABETES HOLDINGS MELLITUS 37625 DIVERTICULO 09-07-2014 [facility] SIS OF SERV COLON [facility] V5869 LONG-TERM 09-07-2014 [facility] (CURRENT) [facility] USE OF INC OTHER MEDICATIONS V7651 SPECIAL 09-07-2014 [facility] SCREENING SERV FOR [facility] MALIGNANT NEOPLASMS COLON 4779 ALLERGIC 06-25-2014 [facility] RHINITIS [facility] CAUSE HOLDINGS UNSPECIFIED 73093 OSTEOARTHRO 06-25-2014 [facility] S UNSPEC [facility] WHETHER HOLDINGS GEN/LOC UNSPEC SITE 6989 UNSPECIFIED 03-26-2014 [facility] DISORDER V069 NEED PROPH 12-25-2013 [facility] VACC[facility]ATION [facility] W/UNSPEC [facility] DEPT COMB HAL VACCINE V770 SCREENING 12-22-2013 [facility] FOR THYROID CLINIC DISORDER V7791 SCREENING 12-22-2013 [facility] FOR LIPOID AMERIC DISORDERS HOLDINGS V811 SCREENING 12-22-2013 [facility] FOR AMERIC HYPERTENSIO HOLDINGS N 37684 INCONCLUSIV 09-15-2013 [facility] Medications Na ND Rx Da Fi Fi Am Da Di Ph RX Ph St me C No te ll ll ou ys ag ar # ys at rm s nt no ma ic us Or Da si cy ia de te s n re d GE 42 09 10 60 30 00 [...] CY 0- 25 MC G IN H NA 68 09 10 60 30 00 CL Ac AL 46 -1 -1 .0 00 IN ti OX 20 9- 3- 00 00 IC ve EN 19 20 20 44 00 17 17 32 PH 50 5 00 AR 0 MA MG CY TA BL ET HY 00 09 10 6. [address] 18 -1 -0 00 00 IN ti OX 50 1- 6- 0 00 IC ve YZ 67 20 20 44 IN 40 17 17 21 PH E 1 82 AR PA MA M CY 25 MG CA P CY 00 09 10 30 10 00 CL Ac CL 59 -1 -0 .0 00 IN ti OB 15 3- 6- 00 00 IC ve EN 65 20 20 44 ZA 80 17 17 25 PH AL 5 07 AR IN MA E CY 10 MG TA BL ET CY 00 09 09 30 10 00 CL Ac CL 59 -0 -2 .0 00 IN ti OB 15 1- 9- 00 00 IC ve EN 65 20 20 44 ZA 80 17 17 13 PH AL 5 34 AR IN MA E CY 10 MG TA BL ET AL 00 09 09 10 5 00 CL Ac ED 05 -0 -2 .0 00 IN ti NI 40 1- 9- 00 00 IC ve SO 01 20 20 44 NE 82 17 17 13 PH 9 35 AR 20 MA CY MG TA BL ET AL 00 08 09 10 5 00 CL [...] MA MG CY CA PS UL E TR 50 08 09 30 30 00 CL Ac AZ 11 -2 -1 .0 00 IN ti OD 10 1- 5- 00 IC ve ON 43 20 20 43 E 40 17 17 78 PH 10 1 60 AR 0 MA MG CY TA BL ET NA 65 08 09 60 30 00 CL Ac AL 16 -2 -1 .0 00 IN ti OX 20 1- 5- 00 IC ve EN 19 20 20 42 05 17 17 01 PH 50 0 91 AR 0 MA MG CY TA BL ET BR 00 08 09 60 30 00 CL Ac EO 17 -2 -1 .0 00 IN ti 30 1- 5- 00 IC ve EL 88 20 20 43 LI 21 17 17 38 PH PT 0 01 AR A MA 20 CY 0- 25 MC G IN H IN 00 08 09 30 30 00 CL Ac CR 17 -2 -1 .0 00 IN ti US 30 1- 5- 00 00 IC ve E 87 20 20 43 EL 31 17 17 46 PH LI 0 67 AR PT MA A CY 62 .5 MC G IN H LE 00 08 09 90 90 00 CL Ac VO 37 -2 -1 .0 00 IN ti TH 81 1- 5- 00 00 IC ve YR 80 20 [...] MA 0 CY MG TA BL ET TR 50 07 08 30 30 00 CL Ac AZ 11 -2 -1 .0 00 IN ti OD 10 6- 8- 00 00 IC ve ON 43 20 20 43 E 40 17 17 78 PH 10 1 60 AR 0 MA MG CY TA BL ET NA 65 07 08 60 30 00 CL Ac AL 16 -2 -1 .0 00 IN ti [...] CY 0- 25 MC G IN H CE 45 07 08 90 90 00 CL Ac TI 80 -2 -1 .0 00 IN ti RI 20 5- 8- 00 00 IC ve ZI 91 20 20 42 NE 98 17 17 99 PH 7 40 AR HC MA L CY 10 MG TA BL ET NA 65 06 07 60 30 00 CL Ac AL 16 -3 -2 .0 00 IN ti OX 20 0- 8- 00 00 IC ve EN 19 20 20 42 05 17 17 01 PH 50 0 91 AR 0 MA MG CY TA BL ET SP 00 06 07 30 30 00 [...] MA 0 CY MG TA BL ET BR 00 06 07 [...] 60 3- 7- 00 00 IC ve AL 00 20 20 43 ED 10 17 17 38 PH NI 3 02 AR SO MA LO CY NE 4 MG DO SE PK SP 00 06 06 30 30 00 CL Ac IR 59 -0 -3 .0 00 IN ti IV 70 1- 0- 00 00 IC ve A 07 20 20 42 18 54 17 17 99 PH 1 38 AR MC MA G CY CP -H AN DI BERGER LE R GE 57 06 06 60 30 00 [...] CY MC G IN BERGER LE R NA 65 06 06 60 30 00 CL Ac AL 16 -0 -3 .0 00 IN ti [...] 50 CY MC G TA BL ET CE 45 05 05 90 90 00 [...] CY MG TA BL ET SP 00 05 05 30 30 00 [...] G IN BERGER LE R SP 00 04 04 30 30 00 [...] 03 04 60 30 00 CL Ac AL 16 -2 -2 .0 00 IN ti [...] 5% EY E OI NT ME NT SP 00 02 03 30 30 00 [...] CY MG TA BL ET NA 65 02 03 60 30 00 CL Ac AL 16 -2 -2 .0 00 IN ti OX 20 7- 4- 00 00 IC ve EN 19 20 20 42 05 17 17 01 PH 50 0 91 AR 0 MA MG CY TA BL ET LE 00 02 03 90 90 00 CL Ac VO 37 -2 -1 .0 00 IN ti TH 81 0- 7- 00 00 IC ve YR 80 20 20 41 OX 31 17 17 63 PH IN 0 00 AR E MA 50 CY MC G TA BL ET SP 00 01 02 30 30 00 CL Ac IR 59 -2 -2 .0 00 IN ti IV 70 6- 4- 00 00 IC ve A 07 20 20 39 18 54 17 17 17 PH 1 52 AR MC MA G CY CP -H AN DI BERGER LE R GE 57 01 02 60 30 00 [...] 5 MC G IN BERGER LE R NA 68 01 02 60 30 00 CL Ac AL 46 -2 -1 .0 00 IN ti [...] 0. MA 3% CY EY E DR SHIN S AL 60 01 01 10 30 00 CL Ac ED 75 -0 -2 .0 00 IN ti NI 80 4- 7- 00 00 IC ve SO 11 20 20 41 LO 90 17 17 82 PH NE 5 04 AR MA AC CY 1% EY E DR OP ER 17 01 01 3. 30 00 [...] CY 1% EY E DR OP S GE 57 12 01 60 30 00 [...] ent ider Refu lity Give sed n PCV1 10-2 133 WRIG No A C 3 0-20 HT WRIG VACC 15 DIMPLE HT YANE [place] FOR PSC INTR AMUS CULA R USE IIV3 10-2 140 WRIG No A C 0-20 HT WRIG VACC 15 DIMPLE HT PRES PSC ERVA TIVE FREE 0.5 ML DOSA GE IM USE TD 07 113 [facility] VACC 7-20 O O INE 14 DIST DIST PRSR RICT RICT V [facility] 7 YRS DEPT DEPT OR HAL HAL OLDE R FOR IM USE TD 12-09 91 [facility] No [facility] VACC 7-20 O O INE 14 DIST DIST PRSR RICT RICT V [facility] 7 YRS DEPT DEPT OR HLA HAL OLDE R FOR IM USE Procedures Procedure DOS Code Location Performer Comment COLLECTIO 90395 A C SHEIKH N VENOUS 7 [facility] [place] BLOOD PSC VENIPUNCT URE BLOOD 54117 A C SHEIKH COUNT 7 [facility] [place] COMPLETE PSC AUTO&[place] [address] [facility] HEAD/BRAI 7 MEDICAL N W/O IMAGING CONTRAST ASS MATERIAL RADEX 03851 [facility] GOLDSTEIN SPINE 7 MEDICAL THORACIC IMAGING 3 VIEWS ASS UNCLASSIF J3490 [facility] IED DRUGS 7 [facility] INC INC THERAPEUT 68384 [facility] IC [address] [facility] PROPHYLAC INC INC TIC/DX INJECTION SUBQ/IM O2 CONC 1 E1390 [facility] DYER PORT 7 HOME HOME 85%/>02 MEDICAL MEDICAL CONC AT EQUIPME EQUIPME PRSC FLW RATE PRTBLE E0431 [facility] TORRES GASEOUS 7 HOME HOME O2 SYS MEDICAL MEDICAL RENT; EQUIPME EQUIPME FLWMTR HUMIDFR&M ASK GLUCOSE 24596 A C KORI QUANTITAT 7 [facility] [place] AQUILES BLOOD PSC XCPT REAGENT STRIP COLLECTIO 88032 A C A C N VENOUS 7 KORI SHEIKH MD BLOOD PSC PSC VENIPUNCT URE TRANSFERA 32560 A C KORI SE 7 KORI [place] ASPARTATE PSC AMINO AST SGOT TRANSFERA 92620 A C A C SE 7 KORI SHEIKH MD ALANINE PSC PSC AMINO ALT SGPT O2 CONC 1 E1390 [facility] DYER PORT 7 HOME HOME 85%/>02 MEDICAL MEDICAL CONC AT EQUIPME EQUIPME PRSC FLW RATE PRTBLE E0431 [facility] GARIBAYRELL GASEOUS 7 HOME HOME O2 SYS MEDICAL MEDICAL RENT; EQUIPME EQUIPME FLWMTR HUMIDFR&M ASK PRTBLE E0431 B[facility] BRIAN GASEOUS 7 HOME HOME O2 SYS MEDICAL [...] RENT; EQUIPME EQUIPME FLWMTR HUMIDFR&M ASK BASIC 86867 [facility] LAB [facility] METABOLIC 7 URSULA URSULA PANEL HOLDINGS HOLDINGS CALCIUM TOTAL SCREENING 98693 [facility] [place] [address] [facility] MAMMOGRAP INC INC HY BI 2-VIEW BREAST INC CAD SCREENING G0202 [facility] 7 MEDICAL MAMMOGRAP IMAGING HY CAROL [place] IN[place] [address] LAB AG[facility]ÍN LAB AGUSTÍN THYROID 7 URSULA URSULA STIMULATI HOLDINGS HOLDINGS NG HORMONE TSH O2 CONC 1 E1390 BRI[facility] TORRES DEL [...] MEDICAL RENT; EQUIPME EQUIPME FLWMTR HUMIDFR&M ASK CATARACT 41742 COMMONWEA COMMONWEA REMOVAL 7 [facility] INSERTION [facility]IN[facility] OF LENS INC INC ANESTHESI 36695 [facility] 7 ANESTHESI LENS A SURGERY ASSOCIAT OPH BMTRY 39946 ADRIANNE SILVER PRTL 7 COHER INTRFRMTR Y IO LENS PWR KELLY ANESTHESI 64954 [facility] 7 ANESTHESI LENS A SURGERY ASSOCIAT CATARACT 56899 [facility] S [facility] REMOVAL 7 RAMIREZ GILBERT MD PS OF LENS BLOOD 27958 LAB AGUSTÍN LAB AGUSTÍN COUNT 7 URSULA URSULA COMPLETE HOLDINGS HOLDINGS AUTO&AUTO DIFRNTL WBC TRANSFERA 79394 A Uche SHEIKH SE 7 [facility]I [place] ASPARTATE PSC AMINO AST SGOT GLUCOSE 53620 A Uche SHEIKH QUANTITAT 7 [facility] [place] AQUILES BLOOD PSC XCPT REAGENT STRIP TRANSFERA 08897 A C A C SE 7 KORI SHEIKH MD ALANINE PSC PSC AMINO ALT SGPT BASIC 68696 LAB AG[facility]ÍN LAB AGUSTÍN METABOLIC 7 URSULA URSULA PANEL HOLDINGS HOLDINGS CALCIUM TOTAL PRTBLE E0431 BRIAN BRIAN GASEOUS 7 HOME HOME O2 SYS MEDICAL MEDICAL RENT; EQUIPME EQUIPME FLWMTR HUMIDFR&M ASK O2 CONC 1 E1390 BRIAN TORRES DEL PORT 7 HOME HOME 85%/>02 MEDICAL MEDICAL CONC AT EQUIPME EQUIPME PRSC FLW RATE OPH BMTRY 37534 ADRIANNE SILVER PRTL 7 COHER INTRFRMTR Y IO LENS PWR KELLY O2 CONC 1 E1390 BRIAN TORRES DEL PORT 6 HOME HOME 85%/>02 MEDICAL MEDICAL CONC AT EQUIPME EQUIPME PRSC FLW RATE PRTBLE E0431 BRIAN GARIBAYRELL GASEOUS 6 HOME HOME O2 SYS MEDICAL MEDICAL RENT; EQUIPME EQUIPME FLWMTR HUMIDFR&M ASK PRTBLE E0431 BRIAN GARIBAYRELL GASEOUS 6 HOME HOME O2 SYS MEDICAL MEDICAL RENT; EQUIPME EQUIPME FLWMTR HUMIDFR&M ASK O2 CONC 1 E1390 BRIAN GARIBAYRELL DEL PORT 6 HOME HOME 85%/>02 MEDICAL MEDICAL CONC AT EQUIPME EQUIPME PRSC FLW RATE 25 13346 [facility] LAB AG[facility]N HYDROXY 6 URSULA URSULA INCLUDES HOLDINGS HOLDINGS FRACTIONS IF PERFORMED CYANOCOBA 18948 LAB [facility] LAB [facility] JOSE ELIAS 6 URSULA URSULA VITAMIN HOLDINGS HOLDINGS B-12 GLUCOSE 05045 A C SHEIKH QUANTITAT 6 KORI NGUYEND AQUILES BLOOD PSC XCPT REAGENT STRIP HEMOGLOBI 12020 A C A C N 6 KORI SHEIKH MD GLYCOSYLA PSC PSC LIN A1C BLOOD 69319 A C A C COUNT 6 KORI SHEIKH MD COMPLETE PSC PSC AUTO&AUTO DIFRNTL WBC TRANSFERA 87678 A C SHEIKH SE 6 KORI MUSA ALANINE PSC AMINO ALT SGPT TRANSFERA 66651 A C SHEIKH SE 6 OKRI MUSA [place] [address] LAB AG[facility]ÍN LAB AG[facility] THYROID 6 URSULA URSULA STIMULATI HOLDINGS HOLDINGS NG HORMONE TSH BASIC 10-26-201 76887 LAB [facility] LAB AG[facility] METABOLIC 6 URSULA URSULA PANEL HOLDINGS HOLDINGS CALCIUM TOTAL PRTBLE E0431 BRIAN GARIBAYRELL GASEOUS 6 HOME [...] FLWMTR HUMIDFR&M ASK O2 CONC 1 E1390 BIRAN TORRES DEL PORT 6 HOME HOME 85%/>02 MEDICAL MEDICAL CONC AT EQUIP[place] [address] LAB AGUSTÍN LAB AGUSTÍN THYROID 6 URSULA URSULA STIMULATI HOLDINGS HOLDINGS NG HORMONE TSH BASIC 63169 LAB AG[facility] LAB AGUSTÍN METABOLIC 6 URSULA URSULA PANEL HOLDINGS HOLDINGS CALCIUM TOTAL CT THORAX 29296 [facility] W/O 6 [facility] CONTRAST INC INC MATERIAL ECG 67138 [place] [facility] CHI ROUTINE 6 MEDICAL ECG SERV W/LEAST FOUNDATIO 12 LDS N I&R ONLY RADIOLOGI 59465 [facility] C EXAM 6 Y Y CHEST 2 [facility] VIEWS FRONTAL&[place] [address] [facility] TROPONIN 6 Y Y QUANTITAT [facility] AQUILES ECG 51047 [facility] ROUTINE 6 Y Y ECG [facility] W/LEAST 12 LDS TRCG ONLY W/O I&R O2 CONC 1 E1390 BRIAN TORRES DEL [...] 85%/>02 MEDICAL MEDICAL CONC AT EQUIPME EQUIPME [facility] FLW RATE BASIC 83175 [facility] METABOLIC 6 DIAGNOSTI DIAGNOSTI PANEL CS CS CALCIUM TOTAL LIPOPROTE 30306 A C KILPELA IN DIR 6 KORI [place] JESaúl MARTIN HIGH PSC DENSITY CHOLESTER OL GLUCOSE 36351 A C KILPELA QUANTITAT 6 KORI MAYORGA AQUILES BLOOD [place] [address] A C KILPELA TRIGLYCER 6 KORI [place] JESaúl IDES PSC CHOLESTER 67949 A C KILPELA OL 6 KORI [place] JESaúl SERUM/[place] B[place] [address] [facility] THYROID 6 DIAGNOSTI DIAGNOSTI STIMULATI CS CS NG HORMONE TSH TRANSFERA 81651 A C KILPELA SE 6 KORI [place] JESaúl ASPARTATE PSC AMINO AST SGOT TRANSFERA 53290 A C KILPELA SE 6 KORI [place] JESaúl ALANINE PSC AMINO ALT SGPT SCREENING G0202 [facility] 6 [facility] MAMMOGRAP INC INC HY CAROL INCL CAD WHEN PERFORMD COMPUTER- 71947 [facility] AIDED 6 [facility] DETECTION INC INC SCREENING MAMMOGRAP HY PRTBLE E0431 BRIAN BRIAN GASEOUS 6 HOME HOME O2 SYS MEDICAL MEDICAL RENT; EQUIPME EQUIPME FLWMTR HUMIDFR&M ASK O2 CONC 1 E1390 BRIAN TORRES DEL PORT 6 HOME HOME 85%/>02 MEDICAL MEDICAL CONC AT EQUIPME EQUIPME [facility] FLW RATE O2 CONC 1 E1390 BRIAN TORRES DEL PORT 6 HOME HOME 85%/>02 MEDICAL MEDICAL CONC AT EQUIPME EQUIPME [facility] FLW RATE PRTBLE E0431 BRIAN TORRES GASEOUS 6 HOME HOME O2 SYS MEDICAL MEDICAL RENT; EQUIPME EQUIPME FLWMTR HUMIDFR&M ASK PRTBLE E0431 BRIAN TORRES GASEOUS 6 HOME HOME O2 SYS MEDICAL MEDICAL RENT; EQUIPME EQUIPME FLWMTR HUMIDFR&M ASK O2 CONC 1 E1390 BRIAN DYER PORT 6 HOME HOME 85%/>02 MEDICAL MEDICAL CONC AT EQUIP[facility] FLW RATE BASIC 00269 LAB AGUSTÍN LAB AGUSTÍN METABOLIC 6 URSULA URSULA PANEL HOLDINGS HOLDINGS CALCIUM TOTAL CYANOCOBA 27109 LAB AGUSTÍN LAB AGUSTÍN JOSE ELIAS 6 [facility] VITAMIN HOLDINGS HOLDINGS B-12 LIPOPROTE 25499 A Uche SHEIKH IN DIR 6 KORI MUSA MARTIN HIGH PSC DENSITY CHOLESTER OL TRANSFERA 41185 A Uche SHEIKH SE 6 KORI MUSA ALANINE PSC AMINO ALT SGPT TRANSFERA 93953 A Uche SHEIKH SE 6 KORI MUSA [place] [address] LAB AGUSTÍN LAB AGUSTÍN THYROID 6 [facility] STIMULATI HOLDINGS HOLDINGS NG HORMONE TSH CHOLESTER 92912 A Uche SHEIKH OL 6 KORI MUSA SERUM/[place] [address] A Uche SHEIKH TRIGLYCER 6 KORI MUSA IDES PSC GLUCOSE 23883 Saúl SHEIKH QUANTITAT 6 KORI MUSA AQUILES BLOOD PSC XCPT REAGENT STRIP HEMOGLOBI 69101 A Uche SHEIKH N 6 KORI MUSA GLYCOSYLA PSC LIN A1C O2 CONC 1 E1390 BRIAN DYER PORT 6 HOME HOME 85%/>02 MEDICAL MEDICAL CONC AT EQUIPME [facility] FLW RATE PRTBLE E0431 BRIAN GARIBAYRELL GASEOUS 6 HOME HOME O2 SYS MEDICAL MEDICAL RENT; EQUIPME EQUIPME FLWMTR HUMIDFR&M ASK PRTBLE E0431 BRIAN TORRES GASEOUS 5 HOME HOME O2 SYS MEDICAL MEDICAL RENT; EQUIPME EQUIPME FLWMTR HUMIDFR&M ASK O2 CONC 1 E1390 BRIAN DYER PORT 5 HOME HOME 85%/>02 MEDICAL MEDICAL CONC AT EQUIPME EQUIPME [facility] FLW RATE O2 CONC 1 E1390 BRIAN TORRES DEL PORT 5 HOME HOME 85%/>02 MEDICAL MEDICAL CONC AT EQUIPME EQUIPME PRSC FLW RATE PRTBLE E0431 BRIAN GARIBAYRELL GASEOUS 5 HOME HOME O2 SYS MEDICAL MEDICAL RENT; EQUIPME EQUIPME FLWMTR HUMIDFR&M ASK CT THORAX 15683 ISAMAR [place]ENN W/O 5 [facility] CONTRAST INC INC MATERIAL PRTBLE E0431 BRIAN TORRES GASEOUS 5 HOME HOME O2 SYS MEDICAL MEDICAL RENT; EQUIPME EQUIPME FLWMTR HUMIDFR&M ASK O2 CONC 1 E1390 BRIAN TORRES DEL PORT 5 HOME HOME 85%/>02 MEDICAL MEDICAL CONC AT EQUIPME EQUIPME [facility] FLW RATE MOST 3044F A Uche SHEIKH RECENT 5 KORI [place] DIMPLE HEMOGLOBI PSC N A1C LEVEL < 7.0% CYANOCOBA 33624 LAB AGUSTÍN LAB AGUSTÍN JOSE ELIAS 5 URSULA URSULA VITAMIN HOLDINGS HOLDINGS B-12 LIPOPROTE 39166 A Uche SHEIKH IN DIR 5 KORI [place] DIMPLE MARTIN HIGH PSC DENSITY CHOLESTER OL 25 51876 LAB AGUSTÍN LAB AGUSTÍN HYDROXY 5 URSULA URSULA INCLUDES HOLDINGS HOLDINGS FRACTIONS IF PERFORMED PCV13 55650 A Uche SHEIKH VACCINE 5 KORI [place] DIMPLE FOR PSC INTRAMUSC ULAR USE IM ADM 70846 A Uche SHEIKH PRQ ID 5 KORI MUSA SUBQ/IM PSC NJXS EA VACCINE HEMOGLOBI 33829 A Uche SHEIKH N 5 KORI NGUYEND GLYCOSY[place] [address] A Uche SHEIKH TRIGLYCER 5 KORI NGUYEND IDES PSC IM ADM 21344 A Uche SHEIKH PRQ ID 5 KORI MUSA SUBQ/IM PSC NJXS 1 VACCINE IIV3 VACC 33026 Saúl SHEIKH 5 KORI MUSA PRESERVAT PSC AQUILES FREE 0.5 ML DOSAGE IM USE CHOLESTER 43361 A Uche SHEIKH OL 5 KORI MUSA SERUM/WHO PSC LE BLOOD TOTAL GLUCOSE 97085 A Uche SHEIKH QUANTITAT 5 KORI MUSA AQUILES BLOOD [place] [address] LAB AGUSTÍN LAB AGUSTÍN THYROID 5 [facility] STIMULATI HOLDINGS HOLDINGS NG HORMONE TSH TRANSFERA 25057 A C KORI SE 5 KORI MUSA ASPARTATE PSC AMINO AST SGOT TRANSFERA 54210 A C KORI SE 5 KORI MUSA ALANINE PSC AMINO ALT SGPT BASIC 48683 LAB AGUSTÍN LAB AGUSTÍN METABOLIC 5 [facility] PANEL HOLDINGS HOLDINGS CALCIUM TOTAL PRTBLE E0431 BRIAN BRIAN GASEOUS 5 HOME [...] MEDICAL RENT; EQUIPME EQUIPME FLWMTR HUMIDFR&M ASK LIPOPROTE 41256 A Uche SHEIKH IN DIR 5 KORI [place] DIMPLE MARTIN HIGH PSC DENSITY CHOLESTER OL BASIC 10013 LAB AGUSTÍN LAB AGUSTÍN METABOLIC 5 [facility] PANEL HOLDINGS HOLDINGS CALCIUM TOTAL TRANSFERA 09093 A C KORI SE 5 KORI MUSA ALANINE PSC AMINO ALT SGPT TRANSFERA 91422 A C KORI SE 5 KORI MUSA [place] [address] LAB AGUSTÍN LAB AGUSTÍN THYROID 5 [facility] STIMULATI HOLDINGS HOLDINGS NG HORMONE TSH COLLECTIO 19085 A Uche SHEIKH N VENOUS 5 KORI MUSA BLOOD PSC VENIPUNCT URE GLUCOSE 32389 A Uche SHEIKH QUANTITAT 5 KORI MUSA AQUILES BLOOD PSC XCPT REAGENT STRIP CHOLESTER 75384 A Uche SHEIKH OL 5 KORI MUSA SERUM/WHO PSC LE BLOOD TOTAL BMI DOC G8419 A Uche SHEIKH OUT NML 5 KORI MUSA JATINDER NO PSC F/[place] [address] Saúl SHEIKH TRIGLYCER 5 KORI [place] DIMPLE IDES PSC HEMOGLOBI 73212 Saúl SHEIKH N 5 KORI [place] DIMPLE GLYCOSYLA PSC LIN A1C O2 CONC 1 E1390 BRIAN BRIAN DEL PORT 5 HOME HOME 85%/>02 MEDICAL MEDICAL CONC AT EQUIPME EQUIPME PRSC FLW RATE PRTBLE E0431 BRIAN TORRES GASEOUS 5 HOME HOME O2 SYS MEDICAL MEDICAL RENT; EQUIPME EQUIPME FLWMTR HUMIDFR&M ASK NONINVASI 96999 ISAMAR [place]ENN VE 5 [facility] EAR/PULSE INC INC OXIMETRY MULTIPLE DETER RADEX HIP 00503 ISAMAR PENN 5 [facility] UNILATERA INC INC L COMPLETE MINIMUM 2 VIEWS RADIOLOGI 95753 [facility] C [facility] EXAMINATI INC INC ON KNEE 1/[address] THORAX 64968 [facility] EPNN W/O [facility] CONTRAST INC INC MATERIAL COMPUTER- 16839 [facility] AIDED [facility] DETECTION INC INC SCREENING MAMMOGRAP HY GAS 00484 [facility] DILUT/WAS [address] [facility] HOUT LUNG INC INC VOL W/WO DISTRIB VENT&[place] [address] [facility] DIFFUSING 5 [facility] CAPACITY INC INC NONINVASI 24614 [facility] VE 5 [facility] EAR/PULSE INC INC OXIMETRY MULTIPLE DETER BRNCDILAT 67151 [facility] RSPSE 5 [facility] SPMTRY INC INC PRE&POST- BRNCDILAT ADMN SCREENING G0202 [facility] MAMMOGRAP INC INC HY CAROL INCL CAD WHEN PERFORMD LIPOPROTE 39542 [facility] [place] IN DIR 5 [facility] MARTIN HIGH PSC DENSITY CHOLESTER OL URINLS 75650 [facility] [place] DIP 5 [facility] STICK/TAB PSC LET REAGNT NON-AUTO MICRSCPY BASIC 21368 [facility]ÍN LAB AGUSTÍN METABOLIC 5 URSULA URSULA PANEL [facility] CALCIUM TOTAL HEMOGLOBI 70458 A C KORI A N 5 [facility] GLYCOSYLA PSC LIN A1C BLOOD 73267 A [facility]che [facility] COUNT 5 [facility] COMPLETE PSC AUTO&AUTO DIFRNTL WBC CHOLESTER 69629 A [facility]che [place] OL 5 [facility] SERUM/WHO PSC LE BLOOD TOTAL GLUCOSE 16623 A [facility] [place] QUANTITAT 5 [facility] AQUILES BLOOD [place] [address] LAB AGUSTÍN LAB AGUSTÍN THYROID 5 [facility] STIMULATI [facility] NG HORMONE TSH TRANSFERA 77699 A [facility] [place] SE 5 [facility] ASPARTATE PSC AMINO AST SGOT TRANSFERA 92997 A [facility] [place] SE 5 [facility] [place] [place] [address] A Uche SHEIKH A TRIGLYCER 5 [facility] IDES PSC COLONOSCO 28448 [facility] PY FLX DX 5 [facility] W/[place] [address] [facility] INFUSION 5 [facility] THERAPY INC INC PROPHYLAX IS/DX EA HOUR UNCLASSIF J3490 [facility] IED DRUGS 5 [facility] INC INC RADIOLOGI 09300 [facility] EXAM 5 MEDICAL SELMA CHEST 2 IMAGING VIEWS ASS FRONTAL&[place] [address] LAB AGUSTÍN LAB AGUSTÍN THYROID 5 [facility] STIMULATI [facility] NG HORMONE TSH LIPID 44495 LAB AGUSTÍN LAB AGUSTÍN PANEL 5 URSULA URSULA [facility] COMPREHEN 40080 LAB AGUSTÍN LAB AGUSTÍN SIVE 5 [facility] METABOLIC [facility] PANEL COMPREHEN 56224 LAB AGUSTÍN LAB AGUSTÍN SIVE 4 [facility] METABOLIC [facility] PANEL LIPID 58292 LAB AGUSTÍN LAB AGUSTÍN PANEL 4 [facility] [place] [address] LAB AGUSTÍN LAB AGUSTÍN THYROID 4 [facility] STIMULATI [facility] NG HORMONE TSH COLLECTIO 64035 JOY RUSSO N VENOUS 4 [facility] BLOOD VENIPUNCT URE INTRACUTA 86307 GERTRUDE CLOUD NEOUS 4 PHYSICIAN LES TESTS PRACTICE W/[place] [address] [facility] DEPT [facility] DEPT FREE 7 HAL HAL YRS OR OLDER FOR IM USE CREATINE 09959 LAB AGUSTÍN LAB AGUSTÍN KINASE 4 [facility] COLLECTIO 10417 JOY MINI N VENOUS 4 [facility] [address] LAB AGUSTÍN LAB AGUSTÍN THYROID 4 [facility] STIMULATI [facility] NG HORMONE TSH BLOOD 58385 LAB AGUSTÍN LAB AGUSTÍN COUNT 4 [facility] COMPLETE [facility] AUTOMATED LIPID 73595 LAB AGUSTÍN LAB AGUSTÍN PANEL 4 [facility] COMPREHEN 44610 LAB AGUSTÍN LAB AGUSTÍN SIVE 4 [facility] METABOLIC [facility] PANEL BLOOD 10417 [facility] OCCULT 4 [facility] DEPT E ACTV HAL HAL QUAL FECES 1 DETER SCREENING G0202 [facility]ENN [facility] MAMMOGRAP INC INC HY CAROL INCL CAD WHEN PERFORMD COMPUTER- 11123 [facility] AIDED 4 [facility] DETECTION INC INC SCREENING MAMMOGRAP HY BLOOD 86702 [facility]V HAL HAL QUAL FECES 1 DETER Encounters Encounter Start End Date Code Location Performer Type Date OFFICE 74175 [place] 7 7 [facility] T VISIT PSC 15 MINUTES EMERGENCY 02064 ELIZABETH VELÁSQUEZ 7 7 [facility] T VISIT HIGH/URGE NT SEVERITY OFFICE 58160 [facility] 7 7 [facility] T VISIT PSC 15 MINUTES OFFICE 65610 [facility] 7 7 [facility] T VISIT 5 INC MINUTES [facility]OSP[facility] - 7 7 [facility] OUTPATIEN INC T OFFICE 87747 [facility] [place] 7 7 [facility] T VISIT PSC 25 MINUTES OFFICE 49612 MALIK HOPKINS OUTPATIEN 7 7 MEDICAL T VISIT SERV 25 FOUNDATIO MINUTES N HOSPITAL [facility] - 7 7 [facility] OUTPATIEN INC T PERIODIC 41101 [facility] DEPT HLTH DEPT PATIENT HAL HAL 40-64YRS OFFICE 51491 [facility] SCIFRES OUTPATIEN 7 7 T VISIT 10 MINUTES OFFICE 86743 SCIFRES SCIFRES OUTPATIEN 7 7 T VISIT 15 MINUTES OFFICE 33954 SCIFRES SCIFRES OUTPATIEN 7 7 T VISIT 15 MINUTES OFFICE 04706 A C KORI OUTPATIEN 7 7 [facility] T VISIT PSC 25 MINUTES OFFICE 25128 ADRIANNE SILVER OUTPATIEN 7 7 T NEW 30 MINUTES OFFICE 75043 A C KORI OUTPATIEN 6 6 [facility]I MUSA T VISIT PSC 25 MINUTES HOSPITAL [facility] - [address] [facility] OUTPATIEN INC T HOSPITAL UNIVERSIT - 6 6 [facility] T EMERGENCY [address] 6 6 MEDICAL DEPARTMEN SERV T VISIT FOUNDATIO HIGH/URGE N NT SEVERITY OFFICE 86220 A C MAXX OUTPATIEN 6 6 KORI MAYORGA T VISIT PSC 25 MINUTES HOSPITAL [facility] - 6 6 [facility] OUTPATIEN INC T OFFICE 50966 A C KORI OUTPATIEN 6 6 K[facility]I MUSA T VISIT PSC 25 MINUTES HOSPITAL [facility] - 5 5 [facility] OUTPATIEN INC T OFFICE 01557 A C KORI OUTPATIEN 5 5 SHEIKH MD DIMPLE T VISIT PSC 25 MINUTES OFFICE 17227 A C KORI OUTPATIEN 5 5 [facility] DIMPLE T VISIT PSC 15 MINUTES [facility]OSPITAL [facility] - 5 5 [facility] OUTPATIEN INC T PERIODIC 59422 [facility] DEPT HLTH DEPT PATIENT HAL HAL 40-64YRS OFFICE 03788 [place] KELLIE OUTPATIEN 5 5 MEDICAL JAM T VISIT SERV 25 FOUNDATIO MINUTES N OFFICE 67380 A C KORI OUTPATIEN 5 5 [facility] DIMPLE T VISIT PSC 15 MINUTES [facility]OSPITAL [facility] - 5 5 [facility] OUTPATIEN INC T [facility] - 5 5 [facility] OUTPATIEN INC T OFFICE 39499 A C MAXX OUTPATIEN 5 5 K[facility] MAYORGA T VISIT PSC 15 MINUTES [facility] - 5 5 [facility] OUTPATIEN INC T OFFICE 34749 A C KORI [place] OUTPATIEN 5 5 [facility] T NEW 30 PSC MINUTES [facility]OSPITAL [facility] - 5 5 [facility] OUTPATIEN INC T OFFICE 98252 JOY SWARTZ- OUTPATIEN 4 4 [facility] T VISIT 15 MINUTES OFFICE 59874 JOY SWARTZ- OUTPATIEN 4 4 [facility] T VISIT 15 MINUTES OFFICE 59483 JOY SWARTZ- OUTPATIEN 4 4 [facility] T VISIT 15 MINUTES [facility] - 4 4 [facility] OUTPATIEN INC T PERIODIC 28244 [facility] EST HLTH DEPT HLTH DEPT PATIENT HAL HAL 40-64YRS
--- OUTSIDE RECORDS SUMMARY | 2017-04-02 15:58 | External Medical Summary Rpt | CCD ---
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 Unavailable Unavailable [facility], [facility] CASSIA, CASSIA Unavailable Unavailable [facility] SELMA, Unavailable Unavailable [facility] SELMA [facility] Un[facility] Un[facility], [facility] Un[facility] Un[facility] INC, [facility] LOPEZ, LOPEZ Unavailable Unavailable VELÁSQUEZ, VELÁSQUEZ Unavailable Unavailable [facility] Un[facility] KILPELA, KILPELA Unavailable Unavailable [...] EQUIPME BRI TER, BRI TER Unavailable Unavailable [facility], Unavailable Unavailable [facility] Unavailable Unavailable DEPT HAL, [facility] Unavailable Unavailable DEPT HAL, [facility] DE[facility] HAL WORTZ, WORTZ Unavailable Unavailable KORI, KORI Unavailable Unavailable KORI A, KORI A Unavailable Unavailable KORI DIMPLE, KORI Unavailable Unavailable DIMPLE Purpose Continuity of Care Document - 09-09-2013 through 2016 Problems Code Diagnosis DOS Provider Status R0602 SHORTNESS 03-07-2017 A Uche SHEIKH OF BREATH [facility] R1010 UPPER 03-07-2017 A Uche SHEIKH ABDOMINAL [facility] PAIN UNSPECIFIED R200 ANESTHESIA 02-19-2017 [facility] R202 PARESTHESIA 02-19-2017 [facility], [facility] M545 LOW BACK 02-09-2017 A Uche SHEIKH PAIN [facility] M546 PAIN IN 02-09-2017 A Uche SHEIKH THORACIC [facility] SPINE 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 INCONTINENC [facility] E [id number] SPONDYLOSIS 02-06-2017 [facility] MYELOPATH/R INC ADICULOPATH Y THOR 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 UNS EQUIPME E782 MIXED 01-03-2017 A Uche SHEIKH HYPERLIPIDE [facility] SARAH G4700 INSOMNIA 01-03-2017 A Uche SHEIKH UNSPECIFIED [facility] N289 DISORDER OF 01-03-2017 A Uche SHEIKH KIDNEY AND PSC URETER UNSPECIFIED Z205 CONTACT W/ 01-03-2017 A Uche SHEIKH & SUSPECTED PSC EXPOSURE VIRAL HEPATITIS J439 EMPHYSEMA 11-21-2016 [place] [facility] U[facility]PECIFIED [facility] E039 HYPOTHYROID 10-05-2016 [facility] ISM [facility] UNSPECIFIED HOLDINGS Z1231 ENCOUNTER 10-05-2016 [facility] SCREENING MEDICAL MAMMO MALIG IMAGING ASS NEOPLASM BREAST Z6821 BODY MASS 10-05-2016 [facility] INDEX BMI URS[facility]A 21.0-21.9 HOLDINGS ADULT Z833 FAMILY 10-05-2016 [facility] HISTORY OF [facility] DIABETES HOLDINGS MELLITUS I08949 ENCOUNTER 09-12-2016 [facility] GUIDE PLANT EXAM DISTRICT GENERAL RTN [facility]PT W/O HAL ABNORMAL FIND Z1239 ENCOUNTER 09-12-2016 [facility] OTHER [facility] SCREENING [facility] MALIG HAL NEOPLASM BREAST 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 H2511 AGE-RELATED 08-03-2016 [facility] NUCLEAR CATARACT RIGHT EYE D46244 COMBINED 08-02-2016 [facility] FORMS OF AGE-RELATED CATARACT LEFT EYE H269 UNSPECIFIED 08-02-2016 [facility] ANESTHESIA ASSOCIAT H2701 APHAKIA 08-02-2016 [facility] RIGHT EYE X35161 COMBINED 07-26-2016 ELTON WASSERMAN OF RAMIREZ [place] AGE-RELATED PS CATARACT RIGHT EYE J61665 PAIN IN 07-05-2016 Saúl SHEIKH RIGHT LEG [facility] R41082 COMBINED 06-14-2016 [facility]ILVER FORMS OF AGE-RELATED CATARACT BILATERAL E538 DEFICIENCY 2016 LAB [facility] OF OTHER [facility] SPECIFIED B HOLDINGS GROUP VITAMINS E559 VITAMIN D 2016 [facility] DEFICIENCY [facility] UNSPECIFIED HOLDINGS E785 HYPERLIPIDE 2016 [facility] SARAH U[facility]A UNSPECIFIED HOLDINGS R5383 OTHER 2016 [facility] FATIGUE [facility] HOLDINGS R911 SOLITARY 01-05-2016 [facility] PULMONARY [facility]ICAL NODULE [facility] R918 OTHER 01-05-2016 [facility] NONSPECIFIC [facility] ABNORMAL INC FINDING OF LUNG FIELD J9811 ATELECTASIS 12-30-2015 [place] [facility] R079 CHEST PAIN 12-30-2015 [place] [facility] U[facility]PECIFIED [facility] R9431 ABNORMAL 12-30-2015 [place] [facility] ELECTROCARD SERV IOGRAM [facility]OUNDATION R0789 OTHER CHEST 12-29-2015 [facility] R0989 OTH SPEC SX 12-29-2015 [facility] INVLV THE CIRC & RESP SYS R198 OTH SPEC SX 12-29-2015 [place] [facility] SIGNS SERV INVLV THE FOUNDATION DIGESTV SYS & ABD E1165 TYPE 2 07-07-2015 [facility] DIABETES U[facility] MELLITUS HOLDINGS WITH HYPERGLYCEM IA J81087 PAIN IN 03-30-2015 [facility] RIGHT KNEE [facility] HOLDINGS Z23 ENCOUNTER 03-30-2015 Saúl BOWMAN MD [facility] IMMUNIZATIO N 496 CHRONIC 03-03-2015 [facility] AIRWAY HOME OBSTRUCTION MEDICAL NEC EQUIPME 2449 UNSPECIFIED 01-05-2015 [facility] U[facility] HYPOTHYROID HOLDINGS ISM 54974 DIAB W/O 01-05-2015 [facility] MENTION [facility] COMP TYPE HOLDINGS II/UNS TYPE UNCNTRL 2724 OTHER AND 01-05-2015 [facility] UNSPECIFIED [facility] HOLDINGS HYPERLIPIDE SARAH 4011 ESSENTIAL 01-05-2015 [facility] HYPERTENSIO URS[facility]A N, BENIGN HOLDINGS 35399 PAIN IN 12-31-2014 [facility] PELVIC INC REGION AND THIGH 42551 PAIN IN 12-31-2014 [facility], [facility] LOWER LEG INC V700 ROUTINE 12-15-2014 [facility] MEDICAL [facility] [email or web address] HAL CARE FACL 59865 OBSTRUCTIVE 11-25-2014 [place] [facility] CHRONIC SERV BRONCHITIS [facility]OUNDATION WITHOUT EXACERBAT 4920 EMPHYSEMATO 11-25-2014 [place] [facility] US BLEB SERV [facility] 22144 CHRONIC 11-25-2014 [place] [facility] RESPIRATORY SERV FAILURE [facility] 58513 OTHER 11-25-2014 [place] [facility] NONSPECIFIC SERV ABNORMAL FOUNDATION FINDING OF LUNG FIELD 10678 OSTEOARTHRO 11-18-2014 [facility] [place] S UNSPEC MEDICAL GEN/LOC IMAGING ASS PELV REGION&THIG H 65036 UNSPECIFIED 11-18-2014 [facility] [place] CYST OF MEDICAL BONE IMAGING ASS 4928 OTHER 10-09-2014 [facility] [place] EMPHYSEMA [facility]ING [facility] 7862 COUGH 10-09-2014 [facility] INC 40900 IRRITABILIT 09-25-2014 Saúl Mathews MD PSC V7610 UNSPECIFIED 09-22-2014 [facility] SCREENING INC V7612 OTHER 09-22-2014 [place] [place] SCREENING MEDICAL MAMMOGRAM IMAGING ASS 92780 OTHER 09-15-2014 [facility] MALAISE AND URSULA FATIGUE HOLDINGS 7881 DYSURIA 09-15-2014 LAB AG[facility]ÍN URSULA HOLDINGS 63412 UNSPECIFIED 09-15-2014 [facility] URINARY [facility] INCONTINENC HOLDINGS E V180 FAMILY 09-15-2014 [facility] HISTORY OF [facility] DIABETES HOLDINGS MELLITUS 99928 DIVERTICULO 09-07-2014 [place] [facility] SIS OF SERV COLON [facility]OUNDATION V5869 LONG-TERM 09-07-2014 [facility] (CURRENT) [facility] USE OF INC OTHER MEDICATIONS V7651 SPECIAL 09-07-2014 [place] [facility] SCREENING SERV FOR [facility]OUNDATION MALIGNANT NEOPLASMS COLON 4779 ALLERGIC 06-25-2014 [facility] RHINITIS [facility] CAUSE HOLDINGS UNSPECIFIED 31808 OSTEOARTHRO 06-25-2014 [facility] S UNSPEC [facility]A WHETHER HOLDINGS GEN/LOC UNSPEC SITE 6989 UNSPECIFIED 03-26-2014 [facility] DISORDER V069 NEED PROPH 12-25-2013 [facility] VACCINATION DISTRICT W/UNSPEC [facility] DEPT COMB HAL VACCINE V770 SCREENING 12-22-2013 [facility] FOR THYROID CLINIC DISORDER V7791 SCREENING 12-22-2013 [facility] FOR LIPOID AMERIC DISORDERS HOLDINGS V811 SCREENING 12-22-2013 [facility] FOR AMERIC HYPERTENSIO HOLDINGS N 68958 INCONCLUSIV 09-15-2013 [facility] [place] [facility] MAMMOGRAM [facility]ICAL IMAGING ASS Medications Na [...] 09 10 60 30 00 CL Ac RI 46 -1 -1 .0 00 IN ti [...] 44 ZA 80 17 17 25 PH RI 5 07 AR IN MA E CY 10 MG TA BL ET CY 00 09 09 30 10 00 CL Ac CL 59 -0 -2 .0 00 IN ti OB 15 1- 9- 00 00 IC ve EN 65 20 20 44 ZA 80 17 17 13 PH RI 5 34 AR IN MA E CY 10 MG TA BL ET RI 00 09 09 10 5 00 CL Ac ED 05 -0 -2 .0 00 IN ti NI 40 1- 9- 00 00 IC ve SO 01 20 20 44 NE 82 17 17 13 PH 9 35 AR 20 MA CY MG TA BL ET RI 00 08 09 10 5 00 CL [...] 08 09 60 30 00 CL Ac RI 16 -2 -1 .0 00 IN ti [...] 07 08 60 30 00 CL Ac RI 16 -2 -1 .0 00 IN ti [...] 06 07 60 30 00 CL Ac RI 16 -3 -2 .0 00 IN ti [...] 60 3- 7- 00 00 IC ve RI 00 20 20 43 ED 10 17 [...] 06 06 60 30 00 CL Ac RI 16 -0 -3 .0 00 IN ti [...] 03 04 60 30 00 CL Ac RI 16 -2 -2 .0 00 IN ti [...] 02 03 60 30 00 CL Ac RI 16 -2 -2 .0 00 IN ti [...] 01 02 60 30 00 CL Ac RI 46 -2 -1 .0 00 IN ti [...] 3% CY EY E DR SHIN S RI 60 01 01 10 30 00 CL [...] HAL HAL OLDE R FOR IM USE Procedures Procedure DOS Code Location Performer Comment COLLECTIO 39048 A C SHEIKH N VENOUS 7 [facility]I [place] BLOOD PSC VENIPUNCT URE BLOOD 72176 A C SHEIKH COUNT 7 KORI [place] COMPLETE PSC AUTO&[place] [address] [facility] [place] CASSIA HEAD/BRAI 7 MEDICAL N W/O IMAGING CONTRAST ASS MATERIAL RADEX 94064 [facility] [place] GOLDSTEIN SPINE 7 MEDICAL THORACIC IMAGING 3 VIEWS ASS UNCLASSIF J3490 [facility] IED DRUGS 7 [facility] INC INC THERAPEUT 94675 [facility]ENN IC 7 [facility] PROPHYLAC INC INC TIC/DX INJECTION SUBQ/IM O2 CONC 1 E1390 B[facility] DYER PORT 7 HOME HOME 85%/>02 MEDICAL MEDICAL CONC AT EQUIPME EQUIPME PRSC FLW RATE PRTBLE E0431 BRIAN TORRES GASEOUS 7 HOME HOME O2 SYS MEDICAL MEDICAL RENT; EQUIPME EQUIPME FLWMTR HUMIDFR&M ASK GLUCOSE 11780 A C KORI QUANTITAT 7 KORI [place] AQUILES BLOOD PSC XCPT REAGENT STRIP COLLECTIO 73056 A C A C N VENOUS 7 KORI SHEIKH MD BLOOD PSC PSC VENIPUNCT URE TRANSFERA 41516 A C KORI SE 7 KORI [place] ASPARTATE PSC AMINO AST SGOT TRANSFERA 48825 A C A C SE 7 KORI [...] RENT; EQUIPME EQUIPME FLWMTR HUMIDFR&M ASK BASIC 54705 [facility] LAB [facility] METABOLIC 7 URSULA URSULA PANEL HOLDINGS HOLDINGS CALCIUM TOTAL SCREENING 93609 [facility] PENN 7 [facility] MAMMOGRAP INC INC HY BI 2-VIEW BREAST INC CAD SCREENING G0202 [facility] 7 MEDICAL MAMMOGRAP IMAGING HY CAROL [place] [address] LAB AG[facility]ÍN LAB [facility] THYROID 7 URSULA [...] RENT; EQUIPME EQUIPME FLWMTR HUMIDFR&M ASK CATARACT 55396 COMMONWEA COMMONWEA REMOVAL 7 [facility] EYE [facility] EYE INSERTION CLINIC CLINIC OF LENS INC INC ANESTHESI 95240 [facility] 7 ANESTHESI LENS A SURGERY ASSOCIAT OPH BMTRY 17193 ADRIANNE SILVER PRTL 7 COHER INTRFRMTR Y IO LENS PWR KELLY ANESTHESI 14144 [facility] 7 ANESTHESI LENS A SURGERY ASSOCIAT CATARACT 39320 ELTON S WORTZ REMOVAL 7 RAMIREZ GILBERT MD PS OF LENS BLOOD 83542 LAB AGUSTÍN LAB AGUSTÍN COUNT 7 URSULA URSULA COMPLETE HOLDINGS HOLDINGS AUTO&AUTO DIFRNTL WBC TRANSFERA 52801 A Uche SHEIKH SE 7 KORI [place] ASPARTATE PSC AMINO AST SGOT GLUCOSE 61808 A Uche SHEIKH QUANTITAT 7 KORI [place] AQUILES BLOOD PSC XCPT REAGENT STRIP TRANSFERA 74385 A C A C SE 7 KORI SHEIKH MD ALANINE PSC PSC AMINO ALT SGPT BASIC 38586 LAB AG[facility]ÍN LAB AGUSTÍN METABOLIC 7 URSULA URSULA PANEL HOLDINGS HOLDINGS CALCIUM TOTAL PRTBLE E0431 BRIAN BRIAN GASEOUS 7 HOME HOME O2 SYS MEDICAL MEDICAL RENT; EQUIPME EQUIPME FLWMTR HUMIDFR&M ASK O2 CONC 1 E1390 BRIAN TORRES DEL PORT 7 HOME HOME 85%/>02 MEDICAL MEDICAL CONC AT EQUIPME EQUIPME PRSC FLW RATE OPH BMTRY 37070 ADRIANNE SILVER PRTL 7 COHER INTRFRMTR Y [...] AT EQUIPME EQUIPME PRSC FLW RATE 25 62614 LAB [facility] LAB AGUSTÍN HYDROXY 6 URSULA URSULA INCLUDES HOLDINGS HOLDINGS FRACTIONS IF PERFORMED CYANOCOBA 46883 LAB AG[facility]ÍN LAB AGUSTÍN JOSE ELIAS 6 URSULA URSULA VITAMIN HOLDINGS HOLDINGS B-12 GLUCOSE 46000 A C SHEIKH QUANTITAT 6 KORI NGUYEND AQUILES BLOOD PSC XCPT REAGENT STRIP HEMOGLOBI 51955 A C A C N 6 KORI SHEIKH MD GLYCOSYLA PSC PSC LIN A1C BLOOD 51229 A C A C COUNT 6 KORI SHEIKH MD COMPLETE PSC PSC AUTO&AUTO DIFRNTL WBC TRANSFERA 95640 A C SHEIKH SE 6 KORI MUSA ALANINE PSC AMINO ALT SGPT TRANSFERA 34889 A C SHEIKH SE 6 KORI MUSA [place]ART[place] [address] LAB AG[facility]ÍN LAB [facility] THYROID 6 URSULA URSULA STIMULATI HOLDINGS HOLDINGS NG HORMONE TSH BASIC 10-26-201 18896 LAB AG[facility]N LAB AGUSTÍN METABOLIC 6 URSULA [...] EQUIP[place] [address] LAB AGUSTÍN LAB AGUSTÍN THYROID 6 URSULA URSULA STIMULATI HOLDINGS HOLDINGS NG HORMONE TSH BASIC 13146 LAB AG[facility]ÍN LAB AGUSTÍN METABOLIC 6 URSULA URSULA PANEL HOLDINGS HOLDINGS CALCIUM TOTAL CT THORAX 91505 [facility] W/O 6 [facility] CONTRAST INC INC MATERIAL ECG 64951 [place] RAD[facility] CHI ROUTINE 6 MEDICAL ECG SERV W/LEAST FOUNDATIO 12 LDS N I&R ONLY RADIOLOGI 15272 [facility] C EXAM 6 Y Y CHEST 2 [facility] VIEWS FRONTAL&[place] [address] [facility] TROPONIN 6 Y Y QUANTITAT [facility] AQUILES ECG 48452 [facility] ROUTINE 6 Y Y ECG [facility] W/LEAST 12 LDS TRCG ONLY W/O [...] 85%/>02 MEDICAL MEDICAL CONC AT EQUIPME EQUIPME [facility] FLW RATE BASIC 17493 [facility] METABOLIC 6 DIAGNOSTI DIAGNOSTI PANEL CS CS CALCIUM TOTAL LIPOPROTE 22533 A C KILPELA IN DIR 6 KORI [place] JESaúl MARTIN HIGH PSC DENSITY CHOLESTER OL GLUCOSE 02981 A C KILPELA QUANTITAT 6 KORI MAYORGA AQUILES B[place] [address] A C KILPELA TRIGLYCER 6 KORI [place] JESaúl IDES PSC CHOLESTER 57844 A C KILPELA OL 6 KORI [place] JESaúl SERUM/[place] B[place] [address] [facility] THYROID 6 DIAGNOSTI DIAGNOSTI STIMULATI CS CS NG HORMONE TSH TRANSFERA 66786 A C KILPELA SE 6 KORI [place] JESaúl ASPARTATE PSC AMINO AST SGOT TRANSFERA 75954 A C KILPELA SE 6 KORI [place] JESaúl ALANINE PSC AMINO ALT SGPT SCREENING G0202 [facility] 6 [facility] MAMMOGRAP INC INC HY CAROL INCL CAD WHEN PERFORMD COMPUTER- 22385 [facility] AIDED 6 [facility] DETECTION INC INC SCREENING MAMMOGRAP HY PRTBLE E0431 BRIAN BRIAN GASEOUS 6 HOME HOME O2 SYS MEDICAL MEDICAL RENT; EQUIPME EQUIPME FLWMTR HUMIDFR&M ASK O2 CONC 1 E1390 BRIAN TORRES DEL PORT 6 HOME HOME 85%/>02 MEDICAL MEDICAL CONC AT EQUIPME EQUIPME [facility] FLW RATE O2 CONC 1 E1390 BRIAN TORRES DEL PORT 6 HOME HOME 85%/>02 MEDICAL MEDICAL CONC AT EQUIPME EQUIPME [facility] FLW RATE PRTBLE E0431 BRIAN TORRES GASEOUS 6 HOME HOME O2 SYS MEDICAL MEDICAL RENT; EQUIPME EQUIPME FLWMTR HUMIDFR&M ASK PRTBLE E0431 BRIAN TORRES GASEOUS 6 HOME HOME O2 SYS MEDICAL MEDICAL RENT; EQUIPME EQUIPME FLWMTR HUMIDFR&M ASK O2 CONC 1 E1390 BRIAN DYER PORT 6 HOME HOME 85%/>02 [facility] E[facility] FL[facility] BAS[facility] 28064 LAB AGUSTÍN LAB AGUSTÍN METABOLIC 6 URSULA URSULA PANEL HOLDINGS HOLDINGS CALCIUM TOTAL CYANOCOBA 36629 LAB AGUSTÍN LAB AGUSTÍN JOSE ELIAS 6 [facility] VITAMIN HOLDINGS HOLDINGS B-12 LIPOPROTE 40766 A Uche SHEIKH IN DIR 6 KORI MUSA MARTIN HIGH PSC DENSITY CHOLESTER OL TRANSFERA 31734 A Uche SHEIKH SE 6 KORI MUSA ALANINE PSC AMINO ALT SGPT TRANSFERA 87433 A Uche SHEIKH SE 6 KORI MUSA [place] [address] LAB AGUSTÍN LAB AGUSTÍN THYROID 6 [facility] STIMULATI HOLDINGS HOLDINGS NG HORMONE TSH CHOLESTER 35714 A Uche SHEIKH OL 6 KORI MUSA SERUM/[place] [address] A Uche SHEIKH TRIGLYCER 6 KORI MUSA IDES PSC GLUCOSE 08757 Saúl SHEIKH QUANTITAT 6 KORI MUSA AQUILES BLOOD PSC XCPT REAGENT STRIP HEMOGLOBI 58223 A Uche SHEIKH N 6 KORI MUSA GLYCOSYLA PSC LIN A1C O2 CONC 1 E1390 BRIAN DYER PORT 6 HOME HOME 85%/>02 [facility]ICAL MEDICAL [facility] E[facility] FLW [facility] PRTBLE E0431 BRIAN GARIBAYRELL GASEOUS 6 HOME HOME O2 SYS MEDICAL MEDICAL RENT; EQUIPME EQUIPME FLWMTR HUMIDFR&M ASK PRTBLE E0431 BRIAN TORRES GASEOUS 5 HOME HOME O2 SYS MEDICAL MEDICAL RENT; EQUIPME EQUIPME FLWMTR HUMIDFR&M ASK O2 CONC 1 E1390 BRIAN DYER PORT 5 HOME HOME 85%/>02 MEDICAL MEDICAL CONC AT EQUIPME EQUIPME [facility] FLW RATE O2 CONC 1 E1390 BRIAN TORRES DEL PORT 5 HOME HOME 85%/>02 MEDICAL MEDICAL CONC AT EQUIPME EQUIPME PRSC FLW RATE PRTBLE E0431 BRIAN GARIBAYRELL GASEOUS 5 HOME HOME O2 SYS MEDICAL MEDICAL RENT; EQUIPME EQUIPME FLWMTR HUMIDFR&M ASK CT THORAX 44511 [facility] W/O 5 [facility] CONTRAST INC INC MATERIAL PRTBLE E0431 BRIAN TORRES GASEOUS 5 HOME HOME O2 SYS MEDICAL MEDICAL RENT; EQUIPME EQUIPME FLWMTR HUMIDFR&M ASK O2 CONC 1 E1390 BRIAN TORRES DEL PORT 5 HOME HOME 85%/>02 MEDICAL MEDICAL CONC AT EQUIPME EQUIPME [facility] FLW RATE MOST 3044F A Uche SHEIKH RECENT 5 KORI [place] DIMPLE HEMOGLOBI PSC N A1C LEVEL < 7.0% CYANOCOBA 85282 LAB AGUSTÍN LAB AGUSTÍN JOSE ELIAS 5 URSULA URSULA VITAMIN HOLDINGS HOLDINGS B-12 LIPOPROTE 17982 A Uche SHEIKH IN DIR 5 KORI [place] DIMPLE MARTIN HIGH PSC DENSITY CHOLESTER OL 25 01809 LAB AGUSTÍN LAB AGUSTÍN HYDROXY 5 URSULA URSULA INCLUDES HOLDINGS HOLDINGS FRACTIONS IF PERFORMED PCV13 50700 A Uche SHEIKH VACCINE 5 KORI [place] DIMPLE FOR PSC INTRAMUSC ULAR USE IM ADM 73095 A Uche SHEIKH PRQ ID 5 KORI MUSA SUBQ/IM PSC NJXS EA VACCINE HEMOGLOBI 55694 A Uche SHEIKH N 5 KORI NGUYEND GLYCOS[place] [address] A Uche SHEIKH TRIGLYCER 5 KORI NGUYEND IDES PSC IM ADM 11623 A Uche SHEIKH PRQ ID 5 KORI MUSA SUBQ/IM PSC NJXS 1 VACCINE IIV3 VACC 15340 Saúl SHEIKH 5 KORI MUSA PRESERVAT PSC AQUILES FREE 0.5 ML DOSAGE IM USE CHOLESTER 56039 A Uche SHEIKH OL 5 KORI MUSA SERUM/WHO PSC LE BLOOD TOTAL GLUCOSE 65748 A Uche SHEIKH QUANTITAT 5 KORI MUSA AQUILES BLOOD [place] [address] LAB AGUSTÍN LAB AGUSTÍN THYROID 5 [facility] STIMULATI HOLDINGS HOLDINGS NG HORMONE TSH TRANSFERA 65620 A C KORI SE 5 KORI MUSA ASPARTATE PSC AMINO AST SGOT TRANSFERA 60774 A C KORI SE 5 KORI MUSA ALANINE PSC AMINO ALT SGPT BASIC 40174 LAB AGUSTÍN LAB AGUSTÍN METABOLIC 5 [facility] PANEL HOLDINGS HOLDINGS CALCIUM TOTAL PRTBLE E0431 BRIAN BRIAN GASEOUS 5 HOME HOME O2 SYS MEDICAL MEDICAL RENT; EQUIPME EQUIPME FLWMTR HUMIDFR&M ASK O2 CONC 1 E1390 BRIAN RBIAN DEL PORT 5 HOME HOME 85%/>02 MEDICAL MEDICAL CONC AT EQUIPME EQUIPME PRSC FLW RATE O2 CONC 1 E1390 BRIAN BRIAN DEL PORT 5 HOME HOME 85%/>02 MEDICAL MEDICAL CONC AT EQUIPME EQUIPME PRSC FLW RATE PRTBLE E0431 BRIAN BRIAN GASEOUS 5 HOME HOME O2 SYS MEDICAL MEDICAL RENT; EQUIPME EQUIPME FLWMTR HUMIDFR&M ASK LIPOPROTE 55605 A Uche SHEIKH IN DIR 5 KORI [place] DIMPLE MARTIN HIGH PSC DENSITY CHOLESTER OL BASIC 98951 LAB AGUSTÍN LAB AGUSTÍN METABOLIC 5 [facility] PANEL HOLDINGS HOLDINGS CALCIUM TOTAL TRANSFERA 46794 A C KORI SE 5 KORI MUSA ALANINE PSC AMINO ALT SGPT TRANSFERA 06207 A C KORI SE 5 KORI MUSA [place] [address] LAB AGUSTÍN LAB AGUSTÍN THYROID 5 [facility] STIMULATI HOLDINGS HOLDINGS NG HORMONE TSH COLLECTIO 55443 A Uche SHEIKH N VENOUS 5 KORI MUSA BLOOD PSC VENIPUNCT URE GLUCOSE 36371 A Uche SHEIKH QUANTITAT 5 KORI MUSA AQUILES BLOOD PSC XCPT REAGENT STRIP CHOLESTER 74131 A Uche SHEIKH OL 5 KORI MUSA SERUM/WHO PSC LE BLOOD TOTAL BMI DOC G8419 A Uche SHEIKH OUT NML 5 KORI MUSA JATINDER NO PSC F/[place] [address] Saúl SHEIKH TRIGLYCER 5 KORI [place] DIMPLE IDES PSC HEMOGLOBI 44751 Saúl SHEIKH N 5 KORI [place] DIMPLE GLYCOSYLA PSC LIN A1C O2 CONC 1 E1390 BRIAN BRIAN DEL PORT 5 HOME HOME 85%/>02 MEDICAL MEDICAL CONC AT EQUIPME EQUIPME PRSC FLW RATE PRTBLE E0431 BRIAN TORRES GASEOUS 5 HOME HOME O2 SYS MEDICAL MEDICAL RENT; EQUIPME EQUIPME FLWMTR HUMIDFR&M ASK NONINVASI 11900 [facility] VE 5 [facility] EAR/PULSE INC INC OXIMETRY MULTIPLE DETER RADEX HIP 07551 [facility] UNILATERA INC INC L COMPLETE MINIMUM 2 VIEWS RADIOLOGI 83620 [facility] C 5 [facility] EXAMINATI INC INC ON KNEE 1/[address] THORAX 13330 [facility] W/O 5 [facility] CONTRAST INC INC MATERIAL COMPUTER- 31075 [facility] AIDED 5 [facility] DETECTION INC INC SCREENING MAMMOGRAP HY GAS 55201 [facility] DILUT/WAS 5 [facility] [place] HOUT LUNG INC INC VOL W/[place] DISTRI[place]ENT&[place] [address] ISAM[facility] DIFFUSING 5 [facility] CAPACITY INC INC NONINVASI 05292 [facility] VE 5 [facility] EAR/PULSE INC INC OXIMETRY MULTIPLE DETER BRNCDILAT 68833 [facility] RSPSE 5 [facility] SPMTRY INC INC PRE&POST- BRNCDILAT ADMN SCREENING G0202 [facility] MAMMOGRAP INC INC HY CAROL INCL CAD WHEN PERFORMD LIPOPROTE 50830 [place] IN DIR 5 [facility] MARTIN HIGH PSC DENSITY CHOLESTER OL URINLS 44742 [place] DIP 5 [facility] [place] STICK/TAB PSC LET REAGNT NON-AUTO MICRSCPY BASIC 81177 [facility]N METABOLIC 5 URSULA URSULA PANEL [facility] CALCIUM TOTAL HEMOGLOBI 34779 A C KORI A N 5 [facility] [place] GLYCOSYLA PSC LIN A1C BLOOD 04506 A Uche [place] COUNT 5 [facility] [place] COMPLETE PSC AUTO&AUTO DIFRNTL WBC CHOLESTER 45318 A [place]che [place] OL 5 [facility] [place] SERUM/WHO PSC LE BLOOD TOTAL GLUCOSE 42690 A [place] QUANTITAT 5 [facility] [place] AQUILES BLOOD [place] [address] LAB AG[facility]N LAB AG[facility]N THYROID 5 [facility] STIMULATI [facility] NG HORMONE TSH TRANSFERA 98933 A [place] SE 5 [facility] [place] ASPARTATE PSC AMINO AST SGOT TRANSFERA 17922 A [facility] [place] SE 5 [facility] [place] [address] A Uche SHEIKH A TRIGLYCER 5 [facility] [place] IDES PSC COLONOSCO 22997 ISAMAR [facility] PY FLX DX 5 [facility] W/[place] [address] [facility] INFUSION 5 [facility] THERAPY INC INC PROPHYLAX IS/DX EA HOUR UNCLASSIF J3490 [facility]AM[facility] IED DRUGS 5 [facility] INC INC RADIOLOGI 75916 [facility] EXAM 5 MEDICAL SELMA CHEST 2 IMAGING VIEWS ASS FRONTAL&[place] [address] LAB AG[facility]N LAB AGUSTÍN THYROID 5 [facility] STIMULATI [facility] HOLD[facility] NG HORMONE TSH LIPID 28882 LAB AGUSTÍN LAB AGUSTÍN PANEL 5 [facility]ULA URSULA [facility] HOLD[facility] COMPREHEN 58344 LAB AGUSTÍN LAB AGUSTÍN SIVE 5 [facility] METABOLIC [facility] HOLD[facility] PANEL COMPREHEN 54446 LAB AG[facility]ÍN LAB AGUSTÍN SIVE 4 [facility] METABOLIC [facility] PANEL LIPID 91658 LAB AGUSTÍN LAB AGUSTÍN PANEL [address] [facility] [place] [address] LAB AGUSTÍN LAB AGUSTÍN THYROID 4 [facility] STIMULATI [facility] NG HORMONE TSH COLLECTIO 61854 JOY RUSSO N VENOUS 4 [facility]IN[facility] BLOOD VENIPUNCT URE INTRACUTA 35702 GERTRU[facility] CLOUD NEOUS 4 PHYSICIAN LES TESTS PRACTICE W/[place] [address] [facility] FREE 7 HAL HAL YRS OR OLDER FOR IM USE CREATINE 71746 LAB AG[facility]ÍN LAB AGUSTÍN KINASE 4 [facility] COLLECTIO 17748 JOY MINI N VENOUS 4 CLIN[place] [address] LAB AGUSTÍN LAB AGUSTÍN THYROID 4 [facility] STIMUL[facility]I [facility] NG HORMONE TSH BLOOD 48605 LAB AG[facility]ÍN LAB AGUSTÍN COUNT 4 [facility] COMPLETE [facility] AUTOMATED LIPID 71032 LAB AG[facility]ÍN LAB AGUSTÍN PANEL 4 [facility] COMPREHEN 93011 LAB AG[facility]ÍN LAB AGUSTÍN SIVE 4 [facility] MET[facility]OL[facility] PANEL BLOOD 34320 [facility] O[facility]ULT [facility] DEPT E ACTV HAL HAL QUAL FECES 1 DETER SCREENING G0202 [facility]AMAR PENN 4 [facility] MAMMOGRAP INC INC HY CAROL INCL CAD WHEN PERFORMD COMPUTER- 13616 ISAMAR [facility] AIDED 4 [facility] DETECTION INC INC SCREENING MAMMOGRAP HY BLOOD 60100 [facility] ACTV HAL HAL QUAL FECES 1 DETER Encounters Encounter Start End Date Code Location Performer Type Date OFFICE 87939 [place] 7 7 [facility] [place] T VISIT PSC 15 MINUTES EMERGENCY 08629 ELIZABETH [facility] 7 7 [facility] T VISIT HIGH/URGE NT SEVERITY OFFICE [id number] Sa[facility]l HLIL 7 7 KORI [facility] T VISIT PSC 15 MINUTES OFFICE [id number] [facility] 7 [facility]IT 5 INC MINUTES [facility]OSP[facility] - 7 7 [facility] OUTPATIEN INC T OFFICE 49449 [place]ILL 7 7 KORI [facility] T VISIT PSC 25 MINUTES OFFICE 74858 MALIK HOPKINS OUTPATIEN 7 7 MEDICAL T VISIT SERV 25 FOUNDATIO MINUTES N HOSPITAL [facility] - 7 7 [facility] OUT[facility] T PERIODIC 52156 [facility]PT HLTH DEPT PATIENT HAL HAL 40-64YRS OFFICE 89153 RADHAFRTER[facility] SCIFRES OUTPATIEN 7 7 T VISIT 10 MINUTES OFFICE 53206 SCIFRES SCIFRES OUTPATIEN 7 7 T VISIT 15 MINUTES OFFICE 73972 SCIFRES SCIFRES OUTPATIEN 7 7 T VISIT 15 MINUTES OFFICE 60260 A C KORI OUTPATIEN 7 7 KORI STANFORD T VISIT PSC 25 MINUTES OFFICE 69766 ADRIANNE SILVER OUTPATIEN 7 7 T NEW 30 MINUTES OFFICE 51712 A C KORI OUTPATIEN 6 6 KORI MUSA T VISIT PSC 25 MINUTES HOSPITAL [facility]AR - 6 6 [facility] [place] [facility] OUTPATIEN INC T HOSPITAL UNIVERSIT - 6 6 [facility] T EMERGENCY [address] 6 6 MEDICAL DEPARTMEN SERV T VISIT FOUNDATIO HIGH/URGE N NT SEVERITY OFFICE 77571 A C MAXX OUTPATIEN 6 6 KORI MAYORGA T VISIT PSC 25 MINUTES HOSPITAL [facility] - 6 6 [facility] INC T OFFICE 37622 A C KORI OUTPATIEN 6 6 KORI MUSA T VISIT PSC 25 MINUTES HOSPITAL [facility] - 5 5 [facility]IEN INC T OFFICE 14477 A C KORI OUTPATIEN 5 5 SHEIKH MD DIMPLE T VISIT PSC 25 MINUTES OFFICE 33217 A C KORI OUTPATIEN 5 5 K[facility]I ST[facility] DIMPLE T VISIT PSC 15 MINUTES HOSPITAL [facility] - 5 5 [facility] INC T PERIODIC 04590 [facility] DEPT HLTH DEPT PATIENT HAL HAL 40-64YRS OFFICE 87703 [place] KELLIE OUTPATIEN 5 5 MEDICAL JAM T VISIT SERV 25 FOUNDATIO MINUTES N OFFICE 29053 A C KORI OUTPATIEN 5 5 K[facility]I ST[facility] DIMPLE T VISIT PSC 15 MINUTES HOSPITAL [facility] - 5 5 [facility] T [facility]OSP[facility] - 5 5 [facility] OUTPATIEN INC T OFFICE 67929 A C MAXX OUTPATIEN 5 5 KORI MAYORGA T VISIT PSC 15 MINUTES HOSPITAL [facility] - 5 5 [facility] OUT[facility] INC T OFFICE 01341 A C KORI [place] OUTPATIEN 5 5 K[facility]I [facility] T NEW 30 PSC MINUTES HOSPITAL [facility] - 5 5 [facility] OUTPATIEN INC T OFFICE 72537 JOY SWARTZ- OUTPATIEN 4 4 [facility] 15 MINUTES OFFICE 12693 JOY SWARTZ- OUTPATIEN 4 4 [facility] T VISIT 15 MINUTES OFFICE 50236 JOY SWARTZ- OUTPATIEN 4 4 [facility] T VISIT 15 MINUTES [facility] - 4 4 [facility] OUT[facility] INC T PERIODIC 95428 [facility] DEPT HLTH DEPT PATIENT HAL HAL 40-64YRS
--- OUTSIDE RECORDS SUMMARY | 2017-04-02 16:00 | External Medical Summary Rpt | CCD ---
Demographics Preferred Language Latvian Marital Status Unknown Restorationist Affiliation Unknown Race Unknown Ethnic Group Unknown Author Author , CHRIS KONG Address Unknown Phone Immunization Unable to retrieve immunization data due to connection failure with Immunization Registry. Please try again later.
--- OUTSIDE RECORDS SUMMARY | 2017-04-02 16:00 | External Medical Summary Rpt ---
Author Author DILAN Marcelino, [employer] Organization [employer] Address Unknown Phone Unavailable Results Basic metabolic panel in Blood Observa Value Referen Units Interpr Notes Date tion ce etation Range Urea 7 - 18 mg/dL Low No Oct 5 nitrogen informati 2017 3:16 [Mass/vol on in PM ume] in source Serum or data Plasma Calcium 8.5 - mg/dL Normal No Oct 5 [Mass/vol 10.1 informati 2017 3:16 ume] in on in PM Serum or source Plasma data Chloride 98 - 107 mmoL/L Normal No Oct 5 [Moles/vo informati 2017 3:16 lume] in on in PM Serum or source Plasma data Carbon 21.0 - mmoL/L Normal No Oct 5 dioxide, 32.0 informati 2017 3:16 total on in PM [Moles/vo source lume] in data Serum or Plasma Creatinin 0.55 - mg/dL Normal No Oct 5 e 1.02 informati 2017 3:16 [Mass/vol on in PM ume] in source Serum or data Plasma Estimated 59- ML/MIN No REFERENCE Oct 5 informati RANGE: 2017 3:16 glomerula on in >60 PM r source ML/MIN/1. filtratio data 73 SQUARE n rate METERSIf (GF this patient is -A merican, then multiply theresult by 1.210. Glucose 74 - 106 mg/dL Normal No Oct 5 [Mass/vol informati 2017 3:16 ume] in on in PM Serum or source Plasma data Potassium 3.5 - 5.1 mmoL/L Low No Oct 5 informati 2017 3:16 [Moles/vo on in PM lume] in source Serum or data Plasma Sodium 136 - 145 mmoL/L High No Oct 5 [Moles/vo informati 2017 3:16 lume] in on in PM Serum or source Plasma data CBC W Auto Differential panel in Blood Observa Value Referen Units Interpr Notes Date tion ce etation Range Basophils 0 - 0.2 K/MM3 Normal No Oct 5 informati 2017 3:16 [#/volume on in PM ] in source Blood by data Automated count Basophils 0.1 - 2.0 % Normal No Mar 15 /100 inform2016 3:16 leukocyte on in PM s in source Blood by data Automated count Eosinophi 0.0 - 0.4 K/mm3 Normal No Mar 15 ls 2016 3:16 [#/volume on in PM ] in source Blood by data Automated count Eosinophi 0.1 - % Normal No Mar 15 ls/100 12.0 informati 2016 3:16 leukocyte on in PM s in source Blood by data Automated count Granulocy 1.8 - 7.8 K/mm3 Normal No Mar 15 ronald informati 2016 3:16 [#/volume on in PM ] in source Blood by data Automated count Granulocy 37.0 - % Normal No Mar 15 ronald/100 80.0 informati 2016 3:16 leukocyte on in PM s in source Blood by data Automated count Hematocri 37.0 - % Normal No Mar 15 t [Volume 47.0 ati 2016 3:16 on in PM Fraction] source of Blood data Hemoglobi 12.2 - g/dL Normal No Mar 15 n 16.2 informati 2016 3:16 [Mass/vol on in PM ume] in source Blood data Lymphocyt 0.7 - 4.5 K/mm3 Normal No Mar 15 es 2016 3:16 [#/volume on in PM ] in source Unspecifi data ed specimen by Automated count Lymphocyt 10 - 50.0 % Normal No Mar 15 es 2016 3:16 [#/volume on in PM ] in source Unspecifi data ed specimen by Automated count Erythrocy 27 - 31.2 pg Normal No Mar 15 te mean ati 2016 3:16 corpuscul on in PM ar source hemoglobi data n [Entitic mass] Erythrocy 31.8 - g/dl Normal No Mar 15 te mean 35.4 informati 2016 3:16 corpuscul on in PM ar source hemoglobi data n concentra tion [Mass/vol ume] by Automated count Erythrocy 82.2 - fl Normal No Mar 15 te mean 97.8 informati 2016 3:16 corpuscul on in PM ar volume source [Entitic data volume] by Automated count Monocytes 0.1 - 1.0 K/mm3 Normal No Mar 15 informati 2016 3:16 [#/volume on in PM ] in source Blood by data Automated count Monocytes 1.7 - 9.3 % Normal No Mar 15 /100 informati 2016 3:16 leukocyte on in PM s in source Blood by data Automated count Platelet 7.4 - fl Normal No Mar 15 mean 10.4 informati 2016 3:16 volume on in PM [Entitic source volume] data in Blood by Automated count Platelets 142 - 424 K/mm3 High No Mar 15 informati 2016 3:16 [#/volume on in PM ] in source Blood data Erythrocy 4.2 - 5.4 M/mm3 Normal No Mar 15 ronald informati 2016 3:16 [#/volume on in PM ] in source Amniotic data fluid Erythrocy 11.5 - % Normal No Mar 15 te 17.5 informati 2016 3:16 distribut on in PM ion width source [Entitic data volume] by Automated count Leukocyte 4.8 - K/MM3 Normal No Mar 15 s 10.8 informati 2016 3:16 [#/volume on in PM ] in source Blood data
--- OUTSIDE RECORDS SUMMARY | 2017-04-02 16:00 | External Medical Summary Rpt | CCD ---
Demographics Preferred Language Thai Marital Status Unknown Caodaism Affiliation Unknown Race Unknown Ethnic Group Unknown Author Author , CHRIS KONG Address Unknown Phone Immunization Unable to retrieve immunization data due to connection failure with Immunization Registry. Please try again later.
[2017-04-02] MEDS ORDERED: FUROSEMIDE40 MG PO (16:07)
[2017-04-02] MEDS ORDERED: METOPROLOL SUCC50 M1 PO (16:09)
[2017-04-02] MEDS ORDERED: AUGMENTIN 875-1 EACH PO (16:09)
[2017-04-02] MEDS ORDERED: LIPITOR40 MG PO (16:10)
[2017-04-02] MEDS ORDERED: DOXEPIN50 MG PO (16:10)
[2017-04-02] MEDS ORDERED: LISINOPRIL 5MG T5 MG PO (16:11)
[2017-04-02] MEDS ORDERED: GEMFIBROZIL600 MG PO (16:12)
[2017-04-02] MEDS ORDERED: ZOFRAN ODT4 MG PO (16:27)
--- NOTE | 2017-04-02 16:28 | Urgent Treatment Center Report ---
History of Present Issue Date/Time Seen by Provider 04/02/17 2148 Visit Reason Pt arrived:Wheelchair Presenting Problem:PT STATES SHE HAS BEEN NAUSEATED AND HER FACE IS NUMB Location if Accident: Onset of symptoms date/time:/ or onset unknown for:MEDICAL HX UNKNOWN Have you (or family members/close friends) recently traveled outside the [place]? N If Yes, where/when: Have you had exposure to infectious disease within the past month? TB? Other? Specify: Patient state that she was recently discharged from the hospital with Pneumonia State that she has been on medication (Augmentin) and it has been causing her to have upset stomach States that while she was in the hospital she thinks she may have pulled a muscle in her back State that she has Naproxen and Flexaril at home but hasn't been taking it afraid that it would interfer with her antibiotics. State that she came in today to get something for nausea and see if she could take that medication together ALLERGIES Coded Allergies: hydrocodone (Mild, 02/19/17) CAULIFLOWER (FOOD) (NA-NAUSEA/VOMITING 09/04/14) Home Medications Active Scripts CYCLOBENZAPRINE HCL (Flexeril) 10 MG PO BID 7 Days Prov: 09/11/11 Prednisone (Prednisone 10MG) 10 MG PO BID 5 Days Prov: 09/11/11 Hydroxyzine Pamoate (Vistaril 25MG CAP) 25 MG PO Q6HP PRN anxiety #6 CAP Prov: 02/19/17 Prednisone (Prednisone 20MG) 20 MG PO BID #10 TAB Prov: 02/06/17 Reported Medications NAPROXEN (NAPROXEN 500MG TAB) 500 MG PO BID ASPIRIN (Aspirin) 81 MG PO DAILY Furosemide (Furosemide 40MG) 40 MG PO DAILY Amoxicillin/Potassium Clav (Augmentin 875-125 Tablet) 1 EACH PO BID Metoprolol Succinate Xl (Metoprolol ER 50MG) 50 MG PO DAILY History Medical History General Hypertension? Yes COPD? Yes Immunization HX DT/Tetanus 1-4 Years Ago Surgical Hx Previous Surgery?Y BONE BIOPSY Social History Smoking Hx Smoker: Former Smoker Tobacco: Yes Type Cigarettes Alcohol Alcohol: No Review of Systems All Other Systems Reviewed and Negative Respiratory cough, denies shortness of breath Gastrointestinal denies abdominal pain, denies diarrhea, nausea, denies vomiting Musculoskeletal back pain Psychiatric/Neurological denies headache, denies numbness, denies tingling Physical Exam Vital Signs Vital Signs Date Time Temp Pulse Resp B/P Pulse O2 O2 Flow FiO2 Ox Delivery Rate 04/02 1557 98.0 82 24 96/54 95 General Appearance normal appearance, WD/WN, no apparent distress Respiratory Status Yes: trachea midline, chest symmetrical, non tender chest. No: respiratory distress. Lung Sounds bilateral: lungs clear. Cardiovascular normal exam, regular rate/rhythm Neurologic alert, normal exam, oriented x 3 Medical Decision Making LABS/Meds/Orders Pt receiving controlled substance in ED? No Results/Orders Current Medication Orders Sig/Emre Start time Last Medication Dose Route Stop Time Status Admin Ondansetron HCl 0 .STK-MED ONE 04/02 1622 DC .ROUTE Albuterol/Ipratropium 3 ML ONCE ONE 04/02 1615 DC 04/02 INH 04/02 1616 1612 Ondansetron HCl 4 MG ONCE ONE 04/02 161 DC 04/02 SL 04/02 161 1623 Orders Procedure Date/time Status RT Aerosol Treatment, Provide 04/02 161 Active RT REQUEST DUONEB 04/02 160 Active Departure Departure Time of Disposition 1625 Disposition DC Home or Self Care(routine) Clinical Impression Primary Impression: Nausea Condition STABLE Referrals Leodan STANFORD,A.C. (Family): [facility] Patient Instructions DI for Nausea -- Adult Additional Instructions Follow up with family doctor Return if needed Ok to take prescribed Medication Flexaril, and Naproxen Take medication for nausea as prescribed and follow up with family doctor for refills if needed Discharge Counseling Counseled pt/family regarding diagnosis, medications/RX, home care, follow up needs Prescriptions Current Visit Scripts Ondansetron (Zofran 4MG Odt) 4 MG PO Q6HP PRN NAUSEA AND VOMITING #20 TAB at 1628
[2017-04-02 16:36] VITALS: BP 96/54
== END 2017-04-02 16:36 | disposition home or self-care (01) ==
LOC: UTC 15:26 → ER 15:26 → UTC 15:46
DX: R11.0 Nausea (principal); R42 Dizziness and giddiness; Z88.6 Allergy status to analgesic agent; Z79.82 Long term (current) use of aspirin; I10 Essential (primary) hypertension; Z87.891 Personal history of nicotine dependence

== ENCOUNTER → 2017-04-16 | Outpatient (CLI) | payer MEDICAID ==
[~2017-04-16] MED LIST changes: +AUGMENTIN 875-1 EACH PO; +DOXEPIN50 MG PO; +FUROSEMIDE40 MG PO; +GEMFIBROZIL600 MG PO; +LIPITOR40 MG PO; +LISINOPRIL 5MG T5 MG PO; +METOPROLOL SUCC50 M1 PO; +ZOFRAN ODT4 MG PO
[2017-04-16 11:12] LABS: BUN 5 mg/dL (7-18)
[2017-04-16 11:21] LABS: GFR (ESTIMATED) 63 ML/MIN (59-)
--- NOTE | 2017-04-17 06:27 | RADIOLOGY REPORT PS360 ---
CT CHEST W/WO CONTRAST HISTORY: Chest pain, thoracic pain, abnormal bone scan, abnormal MRI of the thoracic spine with with possible multiple vertebral body lesions. Evaluate for possible primary or metastatic neoplasm LOW BACK PAIN ORDERING PHYSICIAN: Dariel Matt MD PATIENT AGE: 62 years TECHNIQUE: Helical acquisition obtained following the intravenous administration of 75 mL of Isovue 370 .. Axial, sagittal, and coronal reformatted images are generated and reviewed. COMPARISON: 12/29/1715 FINDINGS: No mediastinal or hilar mass or adenopathy. No evidence of aortic aneurysm or central pulmonary embolus. Normal heart size without evidence of pericardial effusion. There are few scattered small lymph nodes in the axilla. Unenhanced images show mild coronary artery calcification. Severe panlobular present with its changes are present with scattered areas of scarring. Focal irregular increased density is present in the right upper lobe posteriorly likely related to postinflammatory scarring but is somewhat more prominent than when compared to the previous exam. An 8 mm focal parenchymal opacity is present in the left upper lobe also probably related to postinflammatory scarring. A 6 mm nodule is present in the right middle lobe unchanged noncalcified. A clip or focal parenchymal calcification is present in the left upper lobe posteriorly. This is unchanged as well. No new nodules are evident. No effusions or infiltrates. There has been prior vertebral plasty at T8 with moderate wedging T8. Mild compressive changes involving the superior endplate of T12 with mild retropulsion of the posterior superior aspect of T12 by approximately 4 mm. This has developed since the previous MRI of 03/07/2017. IMPRESSION: 1. Severe panlobular emphysematous changes. Scattered parenchymal opacities are present in the upper lobes probably related to postinflammatory scarring. This is somewhat more prominent in the right upper lobe. Suggest 6 month follow-up to confirm stability. No new nodules are evident. No convincing evidence of metastatic disease of the lung. 2. New mild wedge compression changes at T12 compared to 03/07/2017. This does not appear significantly changed from a prior lateral thoracic spine film of 04/11/2017. There is loss of height superiorly of approximately 15% and minimal retropulsion posterior superior aspect of the vertebral body.
--- NOTE | 2017-04-17 06:56 | RADIOLOGY REPORT PS360 ---
CT ABD PELVIS W/WO CONTRAST INDICATION: Back pain, multiple compression fractures with abnormal bone scan, evaluate for primary or metastatic cancer. LOW BACK PAIN ORDERING PHYSICIAN: Dariel Matt MD PATIENT AGE: 62 years COMPARISON: Bone scan of 04/11/2017. MRI of 03/07/2017 TECHNIQUE: Axial images are obtained without and with contrast. Sagittal and coronal reformatted images are reviewed as well. FINDINGS: There is an area of decreased density involving the left lobe of the liver on both the medial and lateral aspect of the falciform ligament consistent with focal fatty infiltration. This is a common place for this finding. This area measures 12 mm to the right of the falciform ligament and 6 mm to the left of the falciform ligament. The liver is otherwise unremarkable. The spleen, adrenal glands, and pancreas are unremarkable. No renal mass or hydronephrosis. There are scattered small cysts involving the kidneys. No retroperitoneal adenopathy. No evidence of aortic aneurysm. No evidence of appendicitis or diverticulitis. No intra-abdominal mass or abnormal fluid collection. Post hysterectomy changes are present in the pelvis. No intestinal obstruction or free air. Severe osteoarthritic changes are present involving the right hip with subcortical cystic changes of the femoral head and acetabulum. Mild wedge compression changes involve the superior endplate of T12 with 4 mm retropulsion of the posterior superior aspect of T12. There is minimal anterolisthesis of L4 on L5. No convincing evidence of metastatic disease of the spine and bony pelvis. IMPRESSION: 1. Probable focal fatty infiltration in the region of the falciform ligament of the liver. 3 month follow-up may confirm short-term stability. 2. No convincing evidence of metastatic disease. 3. Mild wedge compressive changes of T12. 4. Severe osteoarthritic changes of the right hip
[2017-04-17 16:36] LABS: Albumin, U 30.7 % (.); Alpha-1-Globulin, U 15.1 % (.); Alpha-2-Globulin, U 15.6 % (.); Beta Globulin, U 23.9 % (.); Gamma Globulin, U 14.7 % (.); M-Spike, % Not Observed % (Not Observed); Protein,Total,Urine <4.0 mg/dL (Not Estab.)
[2017-04-17 18:40] LABS: Albumin 3.4 g/dL (2.9-4.4); Alpha-1-Globulin 0.5 g/dL (0.0-0.4); Alpha-2-Globulin 1.2 g/dL (0.4-1.0); Gamma Globulin 0.9 g/dL (0.4-1.8); Protein, Total 7.2 g/dL (6.0-8.5)
== END ==
LOC: RAD 09:39 → LAB 09:39 → RAD 09:45
PROVIDERS: Orthopaedic Surgery
DX: M54.6 Pain in thoracic spine (principal); M54.5 Low back pain; G95.9 Disease of spinal cord, unspecified; S22.000A Wedge compression fracture of unspecified thoracic vertebra, initial encounter for closed fracture
CPT/HCPCS: Q9967

== ENCOUNTER → 2017-04-26 | Outpatient (CLI) | payer MEDICAID ==
--- NOTE | 2017-04-26 16:27 | RADIOLOGY REPORT PS360 ---
PROCEDURE: 2-D M-mode and color Doppler study INDICATIONS FOR THE TEST: Chest pain COPDX Heart Murmur Tobacco Smoking PalpitationsX Fatigue Syncope Edema HypertensionXDiabetes Mellitus Rheumatic Fever SOBXDOEXObesity Hyperlipidemia Family History HD Additional History CM PATIENT INFORMATION HEIGHT: 60 WEIGHT:114 GENDER: Female B/P:132/82 2-D/M-MODE INTERPRETATION: 2-D MEASUREMENTS OBSERVED VALUES IN CMS Right Ventricular Dimension (RVDd) 2.2 Interventricular Septum (Thickness)(IVsd) .7 Left Ventricular Internal Dimensions(LVIDd) 5.1 Left Ventricular Posterior Wall (Thickness)(LVPWd) 1.1 Aortic Root 3.1 Aortic Cusp Separation 2.1 Left Atrial Dimensions (LAD) 2.1 2D 1. Left atrium is qualitatively mildly enlarged, left ventricle is normal size, there is no concentric left ventricular hypertrophy, visually estimated ejection fraction 50% with no obvious regional wall motion abnormality. 2. The right atrium and right ventricle are relatively normal size and function. 3. The aortic valve is minimally thickened and fibrosed. 4. The mitral and tricuspid valve are grossly normal. 5. The pulmonic valve is poorly visualized. 6. No significant pericardial effusion noted. DOPPLER INTERROGATION: Doppler interrogation of the aortic mitral and tricuspid valvular presence of mild mitral and tricuspid regurgitation, tricuspid and jet velocity insufficient for calculation of the right ventricular systolic pressure, grade 1 diastolic dysfunction seen without tissue Doppler evidence of raised left atrial pressure. CONCLUSION: 1. Mildly enlarged left atrium, normal left ventricular size, visually estimated ejection fraction 50% with no obvious regional wall motion abnormality, grade 1 diastolic dysfunction seen without tissue Doppler evidence of raised left atrial pressure. 2. Mild mitral and tricuspid regurgitation. 3. No significant pericardial effusion noted.
== END ==
LOC: RT 12:55
DX: I42.9 Cardiomyopathy, unspecified (principal); R00.2 Palpitations; R06.00 Dyspnea, unspecified; J44.9 Chronic obstructive pulmonary disease, unspecified; R94.31 Abnormal electrocardiogram [ECG] [EKG]; J43.9 Emphysema, unspecified